=== PATIENT | male | born 1935 | race Caucasian/White ===

== ENCOUNTER 2022-12-14 21:26 | Inpatient (IN) | payer MEDICARE, SELFPAY ==
[2022-12-14] VITALS (10 sets, daily range): BP systolic 111–146; BP diastolic 63–75; PULSE 96–116; RESP 12–50; TEMP 36.4–36.5; O2SAT 83–99; BMI 30.1
--- NOTE | 2022-12-14 21:39 | EKG12_ITS ---
Test Reason : CP Blood Pressure : / mmHG Vent. Rate : 123 BPM Atrial Rate : 120 BPM P-R Int : 000 ms QRS Dur : 096 ms QT Int : 298 ms P-R-T Axes : 000 013 116 degrees QTc Int : 426 ms Atrial fibrillation Septal infarct , age undetermined Abnormal ECG Confirmed by YURI CRUM, ANAND ([id number]), medical transcription editor MIHIR CEDENO ([id number]) on 12/16/2022 9:29:51 AM Referred By: LAURA Confirmed By:ANAND WELCH MD
--- NOTE | 2022-12-14 21:41 | EDS_ITS ---
HPI History of Present Illness Chief Complaint: Chest Pain Detail of Chief Complaint: Shortness of breath Informant: patient Narrative Narrative: Patient presents to the emergency department with complaint of shortness of breath that started becoming severe this morning. Patient states that he has been short of breath for some time. He denies cough or fever. He denies chest pain. Denies palpitations or racing heart. Patient has history of hypertension and high cholesterol. He denies recent travel or surgery. PFSH PFS Home Medications amlodipine 5 mg tablet 5 mg PO DAILY 12/14/22 [History Last Taken Unknown] furosemide 20 mg tablet (Lasix) 20 mg PO SUTUTHSA 12/14/22 [History Last Taken Unknown] furosemide 40 mg tablet (Lasix) 40 mg PO MOWEFR 12/14/22 [History Last Taken Unknown] lisinopril 10 mg tablet 10 mg PO DAILY 12/14/22 [History Last Taken Unknown] pravastatin 20 mg tablet 20 mg PO QHS 12/14/22 [History Last Taken Unknown] Social History Smoking Status: Never smoker ROS ROS ED Review of Systems ROS Unobtainable: other Constitutional Constitutional ED: Reports lethargy; Denies chills, fever(s), sweats or weight loss Eyes Eyes: Denies blurry vision, change in vision or diplopia ENT ENT ED: Denies rhinorrhea or sore throat Cardiovascular Cardiovascular: Denies chest pain, orthopnea or racing heartbeat Respiratory/Chest Respiratory/Chest: Reports dyspnea and dyspnea on exertion; Denies cough, orthopnea or sputum Gastrointestinal Gastrointestinal: Denies abdominal pain, diarrhea, nausea or vomiting Genitourinary Genitourinary ED: Denies dysuria, hematuria or urinary frequency Musculoskeletal Musculoskeletal: Denies arthralgias, back pain, myalgias or neck pain Integumentary Denies abscess, Abrasions or rash Neurologic Neurologic: Denies headache(s) or weakness Psychiatric Psychiatric: Denies anxiety, depression or suicidal thoughts Endocrine Endocrinology: Denies polydipsia, polyphagia or polyuria Hematologic/Lymphatic Hematologic/Lymphatic: Denies easy bleeding, easy bruising or lymphadenopathy Allergic/Immunologic Allergic/Immunologic ED: Denies mouth swelling, tongue swelling or urticaria EXAM Physical Exam Const Vital Signs: 12/14/22 21:29 12/14/22 21:41 12/14/22 21:34 Temperature 97.6 F L 97.6 F L Temperature Source Temporal Temporal Pulse Rate 116 H 113 H Respiratory Rate 46 H 40 H Respiratory Effort Short of Breath Labored Accessory Muscle Use Respiratory Pattern Hyperpnea Blood Pressure 146/75 H 146/75 H Blood Pressure Mean 98 98 Pulse Ox 83 91 Oxygen Delivery Method Nasal Cannula Bi-pap Oxygen Flow Rate (L/min) 6 Fraction of Inspired Oxygen (FIO2) 12/14/22 21:48 12/14/22 21:41 12/14/22 21:34 Temperature Temperature Source Pulse Rate 112 H 114 H 113 H Respiratory Rate 46 H 50 H Respiratory Effort Respiratory Pattern Tachypnea Blood Pressure 141/71 H 146/75 H Blood Pressure Mean 98 Pulse Ox 91 Oxygen Delivery Method Bi-pap Oxygen Flow Rate (L/min) Fraction of Inspired Oxygen (FIO2) 60 12/14/22 21:45 12/14/22 22:15 Temperature Temperature Source Pulse Rate 114 H 96 Respiratory Rate 41 H 43 H Respiratory Effort Respiratory Pattern Blood Pressure 141/71 H 111/63 Blood Pressure Mean 94 79 Pulse Ox 91 96 Oxygen Delivery Method Bi-pap Bi-pap Oxygen Flow Rate (L/min) Fraction of Inspired Oxygen (FIO2) Positive well nourished and well developed General Appearance ED: well developed and NAD HEENT Reports TM's clear and moist mucous membranes normocephalic and atraumatic; Negative for trauma or tenderness Tympanic Membrane ED: Yes TM's clear Eyes PERRL and EOMs intact bilaterally General Eye ED: Negative for pale conjunctiva or scleral icterus Neck no lymphadenopathy, supple and no JVD General: Negative for tenderness Chest Wall inspection of chest normal and palpation of chest normal Chest: Negative for tenderness Resp No normal respiratory effort and No clear to auscultation bilaterally Resp Narrative: Patient with tachypnea and conversational dyspnea. Mild accessory muscle use. Effort and Inspection: respiratory distress; Negative for pain with movement Auscultation: rales and rhonchi; Negative for wheezes or diminished lung sounds Cardio S1 normal heart sound, S2 normal heart sound and no murmurs; Negative for regular rate or regular rhythm Rhythm: abnormal rhythm irregularly irregular Peripheral Pulses: pulses 2+ throughout GI normal to inspection, nondistended, normoactive bowel sounds, soft to palpation, non-tender, non-distended and no masses Back/Spine no CVA tenderness and no thoracic nor lumbar tenderness Extremity normal to inspection Extremity Narrative: +1 edema both lower extremities General Extremety ED: Yes edema General Extremity: edema Neuro oriented x3, CN's II-XII intact bilaterally, no sensory deficits noted and gait normal Sensorium / Orientation: awake, alert, oriented to person, oriented to place and oriented to time Motor Exam: strength 5/5 throughout and strength abnormal Psych mental status grossly normal Skin no rashes or lesions noted and no wounds MDM MDM MDM Narrative Medical decision making narrative: Patient presents in respiratory distress clinically consistent with pulmonary edema. Patient also noted to be in A-fib RVR on arrival. Patient placed on a quality assurance monitor chassis. EKG obtained showed atrial fibrillation with a rapid ventricular response with a rate of [address] changes. CBC with differential showed an elevated white count of 30,000 with hemoglobin of 12 and platelet count of 320. Troponin elevated at 12,229. BNP elevated at 2263. Chest x-ray obtained interpreted by myself as pulmonary edema. Patient initially started on BiPAP and given Lasix 80 mg IV as well as morphine 4 mg IV and an inch of Nitropaste to the anterior chest wall. Patient was given Cardizem 20 mg IV bolus. On repeat evaluation he is now converted into a sinus rhythm. I discussed case with bottle capping machine operator on-call Dr. Mark Ramirez who recommended heparin drip. Case will be discussed with hospitalist to evaluate patient for admission. Lab Data Labs: Laboratory Results - last 24 hr 12/14/22 21:30 WBC 30.4 H* RBC 3.89 L Hgb 12.1 L Hct 37.2 L MCV 95.6 H MCH 31.1 MCHC 32.5 RDW Std Deviation 50.7 H RDW Coeff of Marlon 14.6 Plt Count 320 MPV 9.9 Immature Gran % (Auto) 4.500 H Neut % (Auto) 88.2 H Lymph % (Auto) 3.4 L [place] % (Auto) 3.8 Eos % (Auto) 0.0 Baso % (Auto) 0.1 Absolute Neuts (auto) 26.8 H Absolute Lymphs (auto) 1.03 Nucleated RBC % 0 Differential Comment SEE COMMENTS Diff Path Review May foll Platelet Estimate ADEQUATE RBC Morphology N CHROM Anisocytosis 1+ Macrocytosis 1+ PT 15.5 H INR 1.2 APTT 35.5 Sodium 134 L Potassium 4.2 Chloride 102 Carbon Dioxide 18.0 L Anion Gap 14 BUN 32 H Creatinine 2.08 H Est GFR (MDRD) Af Amer 39 L Est GFR (MDRD) Non-Af 32 L BUN/Creatinine Ratio 15.4 Glucose 256 H Calcium 9.1 Troponin I High Sens 61282 H* B-Natriuretic Peptide 2263.7 H Radiography Diagnostic Testing: Clinical Impression(s) from Imaging Studies Chest X-Ray 12/14/22 22:00 IMPRESSION: 1. Interstitial and airspace disease in the mid and lower lungs. Findings may be due to edema or pneumonia. 2. Cardiac borders are obscured. 3. Costophrenic angles are obscured. There may be pleural effusions. Electronically Signed: Yuniel Rowe MD at 22:16 EDT , EKG Initial EKG: Attestation: I personally reviewed and interpreted this EKG as follows: Comments: Atrial fibrillation with a rate of 123 bpm with old septal infarct and nonspecific ST changes. Repeat EKG obtained after Cardizem shows sinus rhythm with a rate of 97 bpm with no acute ST segment changes Critical Care Time Critical care time (excluding procedures): 30-74 minutes, Including time spent:, Discussing w/Patient &/or Family/French Tutor, Discussing w/Consultants, Arranging Admission or Transfer, Performing Direct Patient Care at Bedside and - (30 minutes) Discharge Plan Triage Chief Complaint: Chest Pain ED Provider: Danielle Holbrook Dx/Rx/DC Orders Clinical Impression: Pulmonary edema, Respiratory failure, Elevated troponin, Atrial fibrillation with RVR Prescriptions: No Action amlodipine 5 mg tablet 5 mg PO DAILY lisinopril 10 mg tablet 10 mg PO DAILY pravastatin 20 mg tablet 20 mg PO QHS furosemide [Lasix] 20 mg tablet 20 mg PO SUTUTHSA furosemide [Lasix] 40 mg tablet 40 mg PO MOWEFR Primary Care Provider: George Silver Referrals: George Silver DO [Primary Care Provider] -
[2022-12-14] MEDS: Furosemide 100 MG/10 ML Vial 80 MG IV (21:46)
[2022-12-14] MEDS: Morphine 4 MG/ML Syringe IV (21:46)
[2022-12-14] MEDS: dilTIAZem 25 MG/5 ML Vial 20 MG IV BOLUS (21:47)
[2022-12-14 21:48] LABS: Absolute Lymphocyte Count 1.03 X10^3/uL (0.83-4.51); Absolute Neutrophil Count 26.8 X10^3/uL (2.0-7.7); Basophil# 0.04 X10^3/uL; Basophil% 0.1 % (0-1); Hematocrit 37.2 % (40-54); Hemoglobin 12.1 g/dL (13.0-16.5); Lymphocyte # 1.03 X10^3/ul (0.83-4.51); Lymphocyte % 3.4 % (19-41); Mean Corp Hgb Conc 32.5 g/dL (32-36); Mean Corpuscular Hgb 31.1 pg (27.0-32.0); Mean Corpuscular Volume 95.6 fL (80-94); Mean Platelet Vol. 9.9 fl (6.2-12.0); Monocyte# 1.15 X10^3/uL; Monocyte% 3.8 % (0-10); NRBC Flagged by Analyzer 0 % (0-5); Neutrophil # 26.76 X10^3/uL (2.7-7.7); Neutrophil % 88.2 % (47-70); POSITIVE COUNT YES; POSITIVE DIFFERENTIAL YES; Platelet Count 320 K/mm3 (150-450); RBC Distribution Width CV 14.6 % (11.6-14.6); RBC Distribution Width SD 50.7 fl (35.1-43.9); Red Blood Count 3.89 M/mm3 (4.6-6.2)
[2022-12-14] MEDS: Nitroglycerin Oint 1 INCH PACKET TD (21:48)
[2022-12-14 21:54] LABS: Differential Indicated SCAN CRITERIA MET; White Blood Count 30.4 K/mm3 (4.4-11.0)
--- NOTE | 2022-12-14 22:00 | RAD_ITS ---
EXAM: XR CHEST, 1 VIEW CLINICAL INDICATION: dyspnea TECHNIQUE: Frontal view of the chest. COMPARISON: No relevant prior studies available. FINDINGS: LUNGS AND PLEURAL SPACES: Interstitial and airspace disease in the mid and lower lungs. Costophrenic angles are obscured. No pneumothorax. No effusion. HEART: Cardiac borders are obscured. MEDIASTINUM: Central airways and mediastinal contour are unremarkable. BONES/JOINTS: Unremarkable. SOFT TISSUES: Unremarkable. RAD/Chest 1 View (Portable) IMPRESSION: 1. Interstitial and airspace disease in the mid and lower lungs. Findings may be due to edema or pneumonia. 2. Cardiac borders are obscured. 3. Costophrenic angles are obscured. There may be pleural effusions. Electronically Signed: Yuniel Rowe MD at 22:16 EDT ,
[2022-12-14 22:12] LABS: BNP,B-Type NATRIURETIC PEPTIDE 2263.7 pg/mL (0-100); Troponin-I HS 12229 pg/mL (3.0-78.0)
[2022-12-14 22:16] LABS: Differential Comment SEE COMMENTS; Platelet Estimate ADEQUATE (ADEQ)
[2022-12-14 22:17] LABS: Anisocytosis 1+; Macrocytosis 1+; Red Cell Morphology N CHROM NORMAL (NORM C&C)
--- NOTE | 2022-12-14 22:35 | EKG12_ITS ---
Test Reason : RHYTHM CONVERSION Blood Pressure : / mmHG Vent. Rate : 097 BPM Atrial Rate : 097 BPM P-R Int : 174 ms QRS Dur : 084 ms QT Int : 330 ms P-R-T Axes : 058 005 050 degrees QTc Int : 419 ms Normal sinus rhythm Normal ECG Confirmed by YURI CRUM, ANAND ([id number]), television news video editor MIHIR CEDENO ([id number]) on 12/16/2022 9:30:03 AM Referred By: RU Confirmed By:ANAND WELCH MD
[2022-12-14 22:54] LABS: Anion Gap 14 (5-15); BUN 32 mg/dL (7-18); BUN/Creat Ratio 15.4 RATIO (10-20); Calcium,Total 9.1 mg/dL (8.5-10.1); Chloride 102 mmol/L (98-107); Creatinine, Serum 2.08 mg/dL (0.70-1.30); EST Glomerular Filtration Rate 32 mL/min (>60); Est Glom Filt Rate - Afr Amer 39 mL/min (>60); Glucose 256 mg/dL (74-106); Potassium 4.2 mmol/L (3.5-5.1); Sodium Level 134 mmol/L (136-145)
--- NOTE | 2022-12-14 22:54 | PCM.HP.STD ---
HPI - General General Date of Admission: 12/14/22 Date of Service: 12/14/22 Chief Complaint: Shortness of breath HPI Narrative NAEEM GIBSON, is a 87 M who presents to the emergency room with acute shortness of breath. Patient has had progressive symptoms over the past few days and presented to the emergency room with tachypnea and weakness. Patient currently denies having any chest pain and since arrival to the emergency room has improved with BiPAP therapy and diuresis. Following a dose of Cardizem in the emergency room he converted from atrial fibrillation to normal sinus rhythm. Initial laboratory results remarkable for troponin greater than 12,000 and a BNTP greater than 2000. Chest x-ray is remarkable for congestive heart failure and pulmonary edema. White blood cell count is elevated at 30,000 with a left shift. Patient will be admitted to the intensive care unit overnight continue BiPAP therapy and managed for congestive heart failure. Patient was alert and oriented at and we had a discussion about CODE STATUS and patient wishes to remain full code at present time. [facility] Home Medications amlodipine 5 mg tablet 5 mg PO DAILY 12/14/22 [History Last Taken Unknown] furosemide 20 mg tablet (Lasix) 20 mg PO SUTUTHSA 12/14/22 [History Last Taken Unknown] furosemide 40 mg tablet (Lasix) 40 mg PO MOWEFR 12/14/22 [History Last Taken Unknown] lisinopril 10 mg tablet 10 mg PO DAILY 12/14/22 [History Last Taken Unknown] pravastatin 20 mg tablet 20 mg PO QHS 12/14/22 [History Last Taken Unknown] Social History Smoking Status: Never smoker ROS Constitutional Constitutional: Denies chills or fever(s) Eyes Eyes: Denies blurry vision ENT HEENT: Denies abnormal hearing Cardiovascular Cardiovascular: Reports edema and palpitations; Denies chest pain Respiratory/Chest Respiratory/Chest: Reports shortness of breath at rest Gastrointestinal Gastrointestinal: Denies abdominal pain Genitourinary Genitourinary: Denies dysuria Musculoskeletal Musculoskeletal: Denies back pain Integumentary Integumentary: Reports dry skin Neurologic Neurologic: Denies abnormal speech or confusion Psychiatric Psychiatric: Denies anxiety Hematologic/Lymphatic Hematologic/Lymphatic: Denies anemia Vital Signs Vital Signs Vital Signs: 12/14/22 21:29 12/14/22 21:41 12/14/22 21:34 Temperature 97.6 F L 97.6 F L Temperature Source Temporal Temporal Pulse Rate 116 H 113 H Respiratory Rate 46 H 40 H Respiratory Effort Short of Breath Labored Accessory Muscle Use Respiratory Pattern Hyperpnea Blood Pressure 146/75 H 146/75 H Blood Pressure Mean 98 98 Pulse Ox 83 91 Oxygen Delivery Method Nasal Cannula Bi-pap Oxygen Flow Rate (L/min) 6 Fraction of Inspired Oxygen (FIO2) 12/14/22 21:48 12/14/22 21:41 12/14/22 21:34 Temperature Temperature Source Pulse Rate 112 H 114 H 113 H Respiratory Rate 46 H 50 H Respiratory Effort Respiratory Pattern Tachypnea Blood Pressure 141/71 H 146/75 H Blood Pressure Mean 98 Pulse Ox 91 Oxygen Delivery Method Bi-pap Oxygen Flow Rate (L/min) Fraction of Inspired Oxygen (FIO2) 60 12/14/22 21:45 12/14/22 22:15 Temperature Temperature Source Pulse Rate 114 H 96 Respiratory Rate 41 H 43 H Respiratory Effort Respiratory Pattern Blood Pressure 141/71 H 111/63 Blood Pressure Mean 94 79 Pulse Ox 91 96 Oxygen Delivery Method Bi-pap Bi-pap Oxygen Flow Rate (L/min) Fraction of Inspired Oxygen (FIO2) Physical Exam Const oriented x3 General Appearance: cooperative and well developed HEENT normocephalic and head/scalp atraumatic Neck no lymphadenopathy Lymph Lymphatic: no lymphadenopathy noted Resp Effort and Inspection: tachypneic, respiratory distress and labored Cardio regular rate, regular rhythm, S1 normal heart sound and S2 normal heart sound GI normal to inspection, nondistended, normoactive bowel sounds Extremity normal capillary refill Skin Skin Narrative: Lower extremity venous stasis changes General Skin Exam: dry skin Neuro no focal motor deficits and no sensory deficits noted Psych thought process normal and cooperative Mood & Affect: Negative for depressed Results Lab / Micro Data 12/14/22 21:30 12/14/22 21:30 Labs: Laboratory Results - last 24 hr 12/14/22 21:30: WBC 30.4 H*, RBC 3.89 L, Hgb 12.1 L, Hct 37.2 L, MCV 95.6 H, MCH 31.1, MCHC 32.5, RDW Std Deviation 50.7 H, RDW Coeff of Marlon 14.6, Plt Count 320, MPV 9.9, Immature Gran % (Auto) 4.500 H, Neut % (Auto) 88.2 H, Lymph % (Auto) 3.4 L, [place] % (Auto) 3.8, Eos % (Auto) 0.0, Baso % (Auto) 0.1, Absolute Neuts (auto) 26.8 H, Absolute Lymphs (auto) 1.03, Nucleated RBC % 0, Differential Comment SEE COMMENTS, Diff Path Review May foll, Platelet Estimate ADEQUATE, RBC Morphology N CHROM, Anisocytosis 1+, Macrocytosis 1+, Sodium 134 L, Potassium 4.2, Chloride 102, Carbon Dioxide 18.0 L, Anion Gap 14, BUN 32 H, Creatinine 2.08 H, Est GFR (MDRD) Af Amer 39 L, Est GFR (MDRD) Non-Af 32 L, BUN/Creatinine Ratio 15.4, Glucose 256 H, Calcium 9.1, Troponin I High Sens 37370 H*, B-Natriuretic Peptide 2263.7 H Radiology Impression Chest X-Ray 12/14/22 22:00 IMPRESSION: 1. Interstitial and airspace disease in the mid and lower lungs. Findings may be due to edema or pneumonia. 2. Cardiac borders are obscured. 3. Costophrenic angles are obscured. There may be pleural effusions. Electronically Signed: Yuniel Rowe MD at 22:16 EDT , Assessment & Plan Assessment/Plan (1) Pulmonary edema: (2) Respiratory failure: (3) Elevated troponin: (4) Atrial fibrillation with RVR: (5) CHF (congestive heart failure): PLAN: Plan 1 respiratory failure secondary to CHF with pulmonary edema?admit patient to intensive care unit overnight, consult cardiology?IV Lasix 20 mg IV twice daily, continue BiPAP therapy overnight?patient wishes to remain full code should he not continue to respond well to his BiPAP treatment. 2. Congestive heart failure?we will order echocardiogram to assess ejection fraction 3. Atrial fibrillation with RVR?status converted in the ER with Cardizem 4. DVT prophylaxis?we will use low molecular weight heparin Charges/Coding Visit Charges Inpatient E&M: 05083 Init Hosp L2
[2022-12-14 22:58] LABS: International Normalized Ratio 1.2; Prothrombin Time (Protime)PT. 15.5 SECONDS (11.7-14.9)
[2022-12-14 22:59] LABS: Partial Thromboplast Time 35.5 Seconds (24.1-36.2)
[2022-12-14] MEDS: Heparin Injection (Vial) 5,000 UNIT/ML VIAL 6000 UNIT IV (23:31)
[2022-12-14] MEDS: HEPARIN/D5w 25,000 UNITS 25,000 UNITS/250 ML IV.SOLN. 12 UNITS CONT INF (23:31)
[2022-12-15] VITALS (32 sets, daily range): BP systolic 84–133; BP diastolic 48–95; PULSE 64–110; RESP 12–41; TEMP 36.7–37.5; O2SAT 86–98; BMI 30.1; BMI 29.2
[2022-12-15 03:19] LABS: Absolute Lymphocyte Count 0.81 X10^3/uL (0.83-4.51); Absolute Neutrophil Count 18.3 X10^3/uL (2.0-7.7); Basophil# 0.03 X10^3/uL; Basophil% 0.1 % (0-1); Hemoglobin 11.2 g/dL (13.0-16.5); Lymphocyte # 0.81 X10^3/ul (0.83-4.51); Mean Corpuscular Hgb 31.1 pg (27.0-32.0); Mean Corpuscular Volume 97.2 fL (80-94); Mean Platelet Vol. 9.7 fl (6.2-12.0); Monocyte% 4.5 % (0-10); NRBC Flagged by Analyzer 0 % (0-5); Neutrophil # 18.28 X10^3/uL (2.7-7.7); Neutrophil % 90.7 % (47-70); Platelet Count 228 K/mm3 (150-450); RBC Distribution Width CV 14.5 % (11.6-14.6); RBC Distribution Width SD 51.8 fl (35.1-43.9); White Blood Count 20.2 K/mm3 (4.4-11.0)
[2022-12-15 03:30] LABS: Anion Gap 7 (5-15); BUN 37 mg/dL (7-18); BUN/Creat Ratio 20.1 RATIO (10-20); Calcium,Total 8.6 mg/dL (8.5-10.1); Chloride 104 mmol/L (98-107); Creatinine, Serum 1.84 mg/dL (0.70-1.30); EST Glomerular Filtration Rate 37 mL/min (>60); Est Glom Filt Rate - Afr Amer 45 mL/min (>60); Estimated Creatinine Clearance 26.85 ml/min; Glucose 165 mg/dL (74-106); Magnesium 2.4 mg/dL (1.6-2.6); Potassium 4.3 mmol/L (3.5-5.1); Sodium Level 135 mmol/L (136-145)
[2022-12-15 04:07] LABS: Partial Thromboplast Time 66.5 Seconds (24.1-36.2)
--- NOTE | 2022-12-15 05:55 | ECHOCS_ITS ---
Reason For Study: A-FIB Procedure This was a 2D Doppler, Color Flow transthoracic echocardiogram. Exam performed portable in ICU/CCU. Left Ventricle Normal LV size. Mild to moderate global left ventricular systolic dysfunction. The estimated ejection fraction is 45 %. Stage 3 diastolic dysfunction. No regional wall motion abnormalities noted. Right Ventricle Normal RV size. Normal systolic function. Atria The left atrium is mildly enlarged. The right atrium is mildly enlarged. Mitral Valve Normal mitral valve. Mild (1+) eccentric mitral valve insufficiency. Tricuspid Valve Normal tricuspid valve. Mild to moderate (1-2+) tricuspid valve insufficiency. Pulmonary artery systolic pressure is 32 mmHg. Aortic Valve Mild (1+) aortic valve insufficiency. Great Vessels Calcified aortic root. The pulmonary artery is normal size. Normal inferior vena cava. Pericardium/Pleural No pericardial effusion. MMode/2D Measurements & Calculations LVIDd: 4.8 cm IVSd: 1.1 cm LVOT diam: 2.1 cm LVIDs: 3.8 cm LVPWd: 1.3 cm LVOT area: 3.6 cm2 FS: 22.0 % Ao root diam: 2.2 cm LAV(MOD-bp): 63.8 ml LVAd ap4: 29.4 cm2 LAV(MOD-bp) Indexed: 31.7 ml/m2 LVLd ap4: 7.3 cm LAV(MOD-sp2): 66.9 ml EDV(MOD-sp4): 97.8 ml LAV(MOD-sp4): 51.6 ml EDV(sp4-el): 100.9 ml LVAs ap4: 23.2 cm2 LVLs ap4: 7.4 cm ESV(MOD-sp4): 62.0 ml ESV(sp4-el): 61.5 ml EF(MOD-sp4): 36.6 % EF(sp4-el): 39.0 % SV(MOD-sp4): 35.8 ml SV(MOD-sp2): 34.2 ml LVAd ap2: 29.4 cm2 LVLd ap2: 7.3 cm EDV(MOD-sp2): 97.5 ml EDV(sp2-el): 101.0 ml LVAs ap2: 23.9 cm2 LVLs ap2: 7.6 cm ESV(MOD-sp2): 63.3 ml ESV(sp2-el): 64.0 ml EF(MOD-sp2): 35.1 % SV(sp4-el): 39.4 ml LA A4 area: 21.2 cm2 LA dimension(2D): 3.9 cm TAPSE: 1.7 cm RA A4 area: 21.2 cm2 Time Measurements MV dec time: 0.22 sec Doppler Measurements & Calculations MV E max yeison: 80.3 cm/sec Lat Peak E' Yeison: 10.5 cm/sec Med Peak E' Yeison: 8.0 cm/sec MV A max yeison: 35.2 cm/sec E/E' lat: 7.6 E/E' med: 10.0 MV E/A: 2.3 MV V2 max: 81.2 cm/sec MV P1/2t max yeison: 80.3 cm/sec Ao V2 max: 237.7 cm/sec MV max P.6 mmHg MV P1/2t: 55.2 msec Ao max P.6 mmHg MV V2 mean: 38.2 cm/sec MV dec slope: 425.9 cm/sec2 Ao V2 mean: 183.4 cm/sec MV mean P.72 mmHg Ao mean P.7 mmHg MV V2 VTI: 15.8 cm MVA(P1/2t): 4.0 cm2 Ao V2 VTI: 38.2 cm MVA(VTI): 3.4 cm2 AV (velocity ratio): 0.39 IGGY(I,D): 1.4 cm2 IGGY(V,D): 1.2 cm2 LV V1 max: 81.0 cm/sec SV(LVOT): 53.1 ml PA V2 max: 85.7 cm/sec LV V1 max P.6 mmHg LV V1 mean P.5 mmHg LV V1 mean: 58.2 cm/sec LV V1 VTI: 14.8 cm TR max yeison: 264.9 cm/sec TR max P.6 mmHg ECHO/Echo Complete W/ Contrast Interpretation Summary Normal LV size. Mild to moderate global left ventricular systolic dysfunction. The estimated ejection fraction is 45 %. Stage 3 diastolic dysfunction. Pulmonary artery systolic pressure is 32 mmHg. Contrast injection was performed. Ordering Physician: Chandra Tan Performed By: Tanika Kumar RVT, RDCS and Student
--- NOTE | 2022-12-15 07:18 | PCM.PN.HOSP ---
Reason for Visit Reason for Visit: Diagnoses Unspecified atrial fibrillation (12/14/22) Heart failure, unspecified (12/14/22) Chronic pulmonary edema (12/14/22) Respiratory failure, unspecified, unspecified whether with hypoxia or hypercapnia (12/14/22) Other specified abnormalities of plasma proteins (12/14/22) Subjective Subjective Patient is an 87-year-old gentleman admitted with shortness of breath and chest discomfort. Imaging studies obtained on admission demonstrated interstitial and airspace disease in the mid and lower lungs. An assessment of acute hypoxic respiratory failure made patient admitted to the intensive care unit for further management Objective Data Objective Data Vital Signs: Vital Signs Temp Pulse Resp BP Pulse Ox O2 Del Method O2 Flow Rate 98.0 F 92 28 H 111/61 97 Bi-pap 40 12/15/22 04:00 12/15/22 07:00 12/15/22 07:00 12/15/22 07:00 12/15/22 07:00 12/15/22 07:00 12/14/22 22:48 FiO2 50 12/15/22 07:00 Oxygen Flow Rate (L/min) 40 Oxygen Delivery Method Bi-pap Weight: 87.4 kg Body Mass Index (BMI) 29.2 Intake & Output: Intake and Output for Last 24 Hours 12/13/22 12/14/22 12/15/22 23:59 23:59 23:59 Intake Total 50 / 50 Output Total 100 / 100 Balance -50 / -50 Lab / Micro Data 12/15/22 03:10 12/15/22 03:10 Labs: Laboratory Results - last 24 hr 12/14/22 21:30: WBC 30.4 H*, RBC 3.89 L, Hgb 12.1 L, Hct 37.2 L, MCV 95.6 H, MCH 31.1, MCHC 32.5, RDW Std Deviation 50.7 H, RDW Coeff of Marlon 14.6, Plt Count 320, MPV 9.9, Immature Gran % (Auto) 4.500 H, Neut % (Auto) 88.2 H, Lymph % (Auto) 3.4 L, [place] % (Auto) 3.8, Eos % (Auto) 0.0, Baso % (Auto) 0.1, Absolute Neuts (auto) 26.8 H, Absolute Lymphs (auto) 1.03, Nucleated RBC % 0, Differential Comment SEE COMMENTS, Diff Path Review May foll, Platelet Estimate ADEQUATE, RBC Morphology N CHROM, Anisocytosis 1+, Macrocytosis 1+, PT 15.5 H, INR 1.2, APTT 35.5, Sodium 134 L, Potassium 4.2, Chloride 102, Carbon Dioxide 18.0 L, Anion Gap 14, BUN 32 H, Creatinine 2.08 H, Est GFR (MDRD) Af Amer 39 L, Est GFR (MDRD) Non-Af 32 L, BUN/Creatinine Ratio 15.4, Glucose 256 H, Calcium 9.1, Troponin I High Sens 26540 H*, B-Natriuretic Peptide 2263.7 H 12/15/22 03:10: WBC 20.2 H, RBC 3.60 L, Hgb 11.2 L, Hct 35.0 L, MCV 97.2 H, MCH 31.1, MCHC 32.0, RDW Std Deviation 51.8 H, RDW Coeff of Marlon 14.5, Plt Count 228, MPV 9.7, Immature Gran % (Auto) 0.700, Neut % (Auto) 90.7 H, Lymph % (Auto) 4.0 L, [place] % (Auto) 4.5, Eos % (Auto) 0.0, Baso % (Auto) 0.1, Absolute Neuts (auto) 18.3 H, Absolute Lymphs (auto) 0.81 L, Nucleated RBC % 0, APTT Cancelled, Sodium 135 L, Potassium 4.3, Chloride 104, Carbon Dioxide 24.0, Anion Gap 7, BUN 37 H, Creatinine 1.84 H, Estim Creat Clear Calc 26.85, Est GFR (MDRD) Af Amer 45 L, Est GFR (MDRD) Non-Af 37 L, BUN/Creatinine Ratio 20.1 H, Glucose 165 H, Calcium 8.6, Magnesium 2.4 12/15/22 03:45: APTT 66.5 H Radiography Diagnostic Testing: Radiology Impression Chest X-Ray 12/14/22 22:00 IMPRESSION: 1. Interstitial and airspace disease in the mid and lower lungs. Findings may be due to edema or pneumonia. 2. Cardiac borders are obscured. 3. Costophrenic angles are obscured. There may be pleural effusions. Electronically Signed: Yuniel Rowe MD at 22:16 EDT , Physical Exam Narrative GENERAL: cooperative HEENT: Atraumatic; normocephalic EYES; Anicteric, Normal Conjunctiva NECK; supple, normal thyroid, RESPIRATORY: Diminished to auscultation CARDIOVASCULAR: Irregularly irregular, tachycardic GI: soft, normoactive bowel sounds, : No Renal angle tenderness; EXTREMITIES: edema, no clubbing, MUSCULOSKELETAL: no muscle wasting NEURO: Awake; no lateralizing signs. SKIN: No Rash PSYCH; Flat affect Assessment & Plan Assessment/Plan (1) Respiratory failure: (2) Atrial fibrillation with RVR: (3) CHF (congestive heart failure): PLAN: Plan Patient is an 87-year-old gentleman admitted with shortness of breath and chest discomfort. Imaging studies obtained on admission demonstrated interstitial and airspace disease in the mid and lower lungs. An assessment of acute hypoxic respiratory failure made patient admitted to the intensive care unit for further management 1. Acute hypoxic respiratory failure ? Secondary to acute congestive heart failure. Patient admitted to the intensive care unit placed on noninvasive ventilation BiPAP. Patient was also managed with fluid restriction, strict input and output, daily weights as well as IV diuretics. 2D echo ordered for EF assessment 2. Elevated troponin ? Suspected to be secondary to demand ischemia from CHF as well as patient underlying A-fib with RVR trending troponins 3. New onset A-fib with RVR ? Patient apparently converted in the ED was on Cardizem. Had a recurrence in the ICU. Plan is to initiate Cardizem drip titrated to keep heart rate less than 100. Patient is on systemic anticoagulation with 4. Hypertension - Blood pressure controlled, home medications continued with dose adjustment as needed 5. Dyslipidemia -Patient is on statin therapy, continued at home dose 6. DVT prophylaxis - On heparin Time spent in the patient's overall evaluation,decision-making process, review of diagnostic data, adjustment of management, discussion with other providers, nursing nursing and ancillary staff involved in patient's care documentation, 52 Minutes Charges/Coding Visit Charges Inpatient E&M: 39476 Subs [place] [id number]
[2022-12-15] MEDS: dilTIAZem 25 MG/5 ML Vial 10 MG IV BOLUS (08:48)
--- NOTE | 2022-12-15 09:23 | WOUNDNOTE ---
Was asked to see patient for dry, flaky skin to bilateral lower legs. patient has some hemosiderin staining noted bilaterally with some thick, dry skin. some mild edema noted. washed legs and feet with soap and water. was able to remove a moderate amount of the dry skin. applied vaseline to moisturize and wrapped with kerlix. applied ARACELI wraps from the base of the toes to just below the knees. pt tolerated well. no open wounds noted. no drainage noted. will monitor.
[2022-12-15] MEDS: Furosemide 40 MG/4 ML Vial IV ×2 (10:23→17:28)
[2022-12-15] MEDS: 0.9% Saline Lock 10 ML Syringe IV ×2 (10:24→17:28)
[2022-12-15] MEDS: Metoprolol Tartrate 50 MG Tablet PO (10:29)
[2022-12-15 11:41] LABS: Partial Thromboplast Time 69.5 Seconds (24.1-36.2)
[2022-12-15] MEDS: HEPARIN/D5w 25,000 UNITS 25,000 UNITS/250 ML IV.SOLN. 12 UNITS CONT INF (11:50)
--- NOTE | 2022-12-15 13:40 | CASEMGMT ---
ADOLPH WEI Assessment: Face to Face with pt for initial transition planning/care coordination assessment. ADOLPH WEI introduced self and role at [facility], pt voices understanding and consents to assessment. Pt is A/O x4 and answers all questions appropriately at this time. Pt sitting up in chair with dtr Delmy at bedside. Pt agreeable to assessment with dtr present. Care providers, pharmacy, and demographics verified/updated. Admitting Dx: respiratory failure- congestive heart failure PCP:Adrianne Specialists:brissa Ramirez Pharmacy: [facility] Insurance: Medicare A Prescription Benefit: no LNOK: Delmy Escalera, dtr Living Arrangements: Pt lives alone, passed last year. Pt two dtrs live close with just a sidewalk in between. Pt lives in a two story home, he uses only the main level with 2 steps to enter. Pt reports he is I in ADL's. Dtr provide meals. Pt denies concerns at home. Transportation: Pt hires drivers for transportation. DME/HHC/SNF: Pt has a cane that he uses, also has a walker and transport w/c available. Pt denies hx of HHC or SNF stays. Pt states no concerns with going home at time of dc. Pt may be interested in HHC at home, he would like to see how his stay progresses and discuss with dtr. Pt reviewing afib booklet currently. Pt reports he does have electricity at home should he need to be dc'd on oxygen. Pt states no further concerns/needs. CM to follow. Advised pt to ask CM if any further question/concerns/needs arise, voices understanding. Pt Goal: Home Plan: Home vs Home with HHC, follow therapy, oxgyen.
--- NOTE | 2022-12-15 17:14 | PCM.CONS.C ---
Assessment & Plan Assessment/Plan (1) CHF (congestive heart failure): PLAN: He does have evidence of congestive heart failure which appears to be mildly systolic. His estimated ejection fraction is mildly reduced estimated at 45% which appears to be global. He does have some renal dysfunction. My recommendation will be to attempt to control his rate with a beta-hoang and diuresis and cautiously. (2) Atrial fibrillation with RVR: PLAN: He does have evidence of paroxysmal atrial fibrillation. He he is going in and out of atrial fibrillation. At this time he appears to doing better on the beta-hoang with the Lopressor. I will recommend that we increase it to 50 mg twice a day and consider anticoagulation. He does have some renal dysfunction and we may need to adjust the dosages for this. He does have mild troponin elevation but I do not think that we should pursue an invasive approach at this time. Thank you for allowing me to participate in the care of your patient. Please don't hesitate to call if any issues arise. HPI Consult Data Date of Consult: 12/15/22 HPI Narrative HPI Narrative: NAEEM GIBSON, is a 87 M who presents to the emergency room complaining of shortness of breath which apparently started a few days ago. He denies any chest pain or paroxysmal nocturnal dyspnea or pedal edema he has had no neck arm or jaw discomfort suggest angina. He has been compliant with his medications. In the emergency room he was noted to be in atrial fibrillation with a rapid ventricular response rate he was given intravenous diltiazem and he transiently converted to sinus rhythm. He was also put on oxygen and diuresed. Cardiology was asked to see him for further evaluation and management. [facility] Medical History HTN (hypertension) Hypercholesteremia Home Medications amlodipine 5 mg tablet 5 mg PO DAILY 12/14/22 [History Last Taken Unknown] furosemide 20 mg tablet (Lasix) 20 mg PO SUTUTHSA 12/14/22 [History Last Taken Unknown] furosemide 40 mg tablet (Lasix) 40 mg PO MOWEFR 12/14/22 [History Last Taken Unknown] lisinopril 10 mg tablet 10 mg PO DAILY 12/14/22 [History Last Taken Unknown] pravastatin 20 mg tablet 20 mg PO QHS 12/14/22 [History Last Taken Unknown] Allergy/AdvReac Type Severity Reaction Status Date / Time No Known Drug Allergies Allergy Mild none Verified 12/14/22 23:24 Surgical History History of appendectomy Social History Smoking Status: Never smoker Risk Stratification Risk Stratification Applicable: No Objective Data Vital Signs: Vital Signs Temp Pulse Resp BP Pulse Ox O2 Del Method O2 Flow Rate 99.5 F H 89 41 H 118/65 91 Nasal Cannula 6 12/15/22 11:41 12/15/22 17:00 12/15/22 17:00 12/15/22 17:00 12/15/22 17:00 12/15/22 17:00 12/15/22 17:00 FiO2 50 12/15/22 07:00 Oxygen Flow Rate (L/min) 6 Oxygen Delivery Method Nasal Cannula Weight: 192 lb 10.944 oz Body Mass Index (BMI) 29.2 Intake & Output: Intake and Output for Last 24 Hours 12/13/22 12/14/22 12/15/22 23:59 23:59 23:59 Intake Total 787.8 / 787.8 Output Total 625 / 625 Balance 162.8 / 162.8 Lab / Micro Data 12/15/22 03:10 12/15/22 03:10 Labs: Laboratory Results - last 24 hr 12/14/22 21:30: WBC 30.4 H*, RBC 3.89 L, Hgb 12.1 L, Hct 37.2 L, MCV 95.6 H, MCH 31.1, MCHC 32.5, RDW Std Deviation 50.7 H, RDW Coeff of Marlon 14.6, Plt Count 320, MPV 9.9, Immature Gran % (Auto) 4.500 H, Neut % (Auto) 88.2 H, Lymph % (Auto) 3.4 L, [place] % (Auto) 3.8, Eos % (Auto) 0.0, Baso % (Auto) 0.1, Absolute Neuts (auto) 26.8 H, Absolute Lymphs (auto) 1.03, Nucleated RBC % 0, Differential Comment SEE COMMENTS, Diff Path Review May foll, Platelet Estimate ADEQUATE, RBC Morphology N CHROM, Anisocytosis 1+, Macrocytosis 1+, PT 15.5 H, INR 1.2, APTT 35.5, Sodium 134 L, Potassium 4.2, Chloride 102, Carbon Dioxide 18.0 L, Anion Gap 14, BUN 32 H, Creatinine 2.08 H, Est GFR (MDRD) Af Amer 39 L, Est GFR (MDRD) Non-Af 32 L, BUN/Creatinine Ratio 15.4, Glucose 256 H, Calcium 9.1, Troponin I High Sens 92816 H*, B-Natriuretic Peptide 2263.7 H 12/15/22 03:10: WBC 20.2 H, RBC 3.60 L, Hgb 11.2 L, Hct 35.0 L, MCV 97.2 H, MCH 31.1, MCHC 32.0, RDW Std Deviation 51.8 H, RDW Coeff of Marlon 14.5, Plt Count 228, MPV 9.7, Immature Gran % (Auto) 0.700, Neut % (Auto) 90.7 H, Lymph % (Auto) 4.0 L, [place] % (Auto) 4.5, Eos % (Auto) 0.0, Baso % (Auto) 0.1, Absolute Neuts (auto) 18.3 H, Absolute Lymphs (auto) 0.81 L, Nucleated RBC % 0, APTT Cancelled, Sodium 135 L, Potassium 4.3, Chloride 104, Carbon Dioxide 24.0, Anion Gap 7, BUN 37 H, Creatinine 1.84 H, Estim Creat Clear Calc 26.85, Est GFR (MDRD) Af Amer 45 L, Est GFR (MDRD) Non-Af 37 L, BUN/Creatinine Ratio 20.1 H, Glucose 165 H, Calcium 8.6, Magnesium 2.4 12/15/22 03:45: APTT 66.5 H 12/15/22 10:30: APTT Cancelled 12/15/22 11:14: APTT 69.5 H Cardiology Labs/Tests 12/14/22 21:30: WBC 30.4 H*, RBC 3.89 L, Hgb 12.1 L, Hct 37.2 L, MCV 95.6 H, MCH 31.1, MCHC 32.5, Plt Count 320, MPV 9.9, Immature Gran % (Auto) 4.500 H, Neut % (Auto) 88.2 H, Lymph % (Auto) 3.4 L, [place] % (Auto) 3.8, Eos % (Auto) 0.0, Baso % (Auto) 0.1, Absolute Neuts (auto) 26.8 H, Nucleated RBC % 0, PT 15.5 H, INR 1.2, APTT 35.5, Sodium 134 L, Potassium 4.2, Chloride 102, Carbon Dioxide 18.0 L, Anion Gap 14, BUN 32 H, Creatinine 2.08 H, Est GFR (MDRD) Af Amer 39 L, Est GFR (MDRD) Non-Af 32 L, BUN/Creatinine Ratio 15.4, Glucose 256 H, Calcium 9.1, B-Natriuretic Peptide 2263.7 H 12/15/22 03:10: WBC 20.2 H, RBC 3.60 L, Hgb 11.2 L, Hct 35.0 L, MCV 97.2 H, MCH 31.1, MCHC 32.0, Plt Count 228, MPV 9.7, Immature Gran % (Auto) 0.700, Neut % (Auto) 90.7 H, Lymph % (Auto) 4.0 L, [place] % (Auto) 4.5, Eos % (Auto) 0.0, Baso % (Auto) 0.1, Absolute Neuts (auto) 18.3 H, Nucleated RBC % 0, APTT Cancelled, Sodium 135 L, Potassium 4.3, Chloride 104, Carbon Dioxide 24.0, Anion Gap 7, BUN 37 H, Creatinine 1.84 H, Est GFR (MDRD) Af Amer 45 L, Est GFR (MDRD) Non-Af 37 L, BUN/Creatinine Ratio 20.1 H, Glucose 165 H, Calcium 8.6, Magnesium 2.4 12/15/22 03:45: APTT 66.5 H 12/15/22 10:30: APTT Cancelled 12/15/22 11:14: APTT 69.5 H Rhythm: EKG: ECHO: Stress Test: Cardiac Cath: PCI: CT Surgery: Holter monitor: EPS: PPM: CXR: Chest CT Scan: Radiography Diagnostic Testing: Radiology Impression Chest X-Ray 12/14/22 22:00 IMPRESSION: 1. Interstitial and airspace disease in the mid and lower lungs. Findings may be due to edema or pneumonia. 2. Cardiac borders are obscured. 3. Costophrenic angles are obscured. There may be pleural effusions. Electronically Signed: Yuniel Rowe MD at 22:16 EDT , Echocardiogram 12/15/22 05:55 Interpretation Summary Normal LV size. Mild to moderate global left ventricular systolic dysfunction. The estimated ejection fraction is 45 %. Stage 3 diastolic dysfunction. Pulmonary artery systolic pressure is 32 mmHg. Contrast injection was performed. Ordering Physician: Chandra Tan Performed By: Tanika Kumar RVT, RDCS and Student
[2022-12-15 17:26] LABS: Partial Thromboplast Time 87.5 Seconds (24.1-36.2)
[2022-12-15] MEDS: Acetaminophen 325 MG Tablet 650 MG PO (18:26)
[2022-12-15] MEDS: HEPARIN/D5w 25,000 UNITS 25,000 UNITS/250 ML IV.SOLN. 11 UNITS CONT INF (19:41)
[2022-12-15] MEDS: MELATONIN 10 MG TABLET PO (21:12)
[2022-12-15] MEDS: Pravastatin 20 MG Tablet PO (21:12)
[2022-12-15 23:27] LABS: Partial Thromboplast Time 109.3 Seconds (24.1-36.2)
[2022-12-16] VITALS (21 sets, daily range): BP systolic 74–100; BP diastolic 44–64; PULSE 60–83; RESP 18–26; TEMP 36.3–37; O2SAT 94–98; BMI 29.7
--- NOTE | 2022-12-16 07:14 | PCM.PN.CARD ---
Subjective Subjective The patient was seen and evaluated. Appears to be doing quite well. Objective Data Vital Signs: Vital Signs Temp Pulse Resp BP Pulse Ox O2 Del Method O2 Flow Rate 98.0 F 70 26 H 89/58 L 97 Nasal Cannula 6 12/16/22 04:00 12/16/22 07:00 12/16/22 07:00 12/16/22 07:00 12/16/22 07:00 12/16/22 07:00 12/16/22 07:00 FiO2 50 12/15/22 07:00 Oxygen Flow Rate (L/min) 6 Oxygen Delivery Method Nasal Cannula Weight: 195 lb 15.855 oz Body Mass Index (BMI) 29.7 Intake & Output: Intake and Output for Last 24 Hours 12/14/22 12/15/22 12/16/22 23:59 23:59 23:59 Intake Total 1151.93 / 1151.93 50 / 50 Output Total 775 / 775 250 / 250 Balance 376.93 / 376.93 -200 / -200 Lab / Micro Data 12/15/22 03:10 12/15/22 03:10 Labs: Laboratory Results - last 24 hr 12/15/22 10:30: APTT Cancelled 12/15/22 11:14: APTT 69.5 H 12/15/22 16:55: APTT 87.5 H 12/15/22 23:10: APTT 109.3 H* Cardiology Labs/Tests 12/15/22 10:30: APTT Cancelled 12/15/22 11:14: APTT 69.5 H 12/15/22 16:55: APTT 87.5 H 12/15/22 23:10: APTT 109.3 H* Rhythm: EKG: ECHO: Stress Test: Cardiac Cath: PCI: CT Surgery: Holter monitor: EPS: PPM: CXR: Chest CT Scan: Radiography Diagnostic Testing: Radiology Impression Echocardiogram 12/15/22 05:55 Interpretation Summary Normal LV size. Mild to moderate global left ventricular systolic dysfunction. The estimated ejection fraction is 45 %. Stage 3 diastolic dysfunction. Pulmonary artery systolic pressure is 32 mmHg. Contrast injection was performed. Ordering Physician: Chandra Tan Performed By: Tanika Kumar RVT, RDCS and Student Physical Exam Const alert, oriented x3 and no apparent distress General Appearance: cooperative HEENT hearing grossly normal bilaterally Head and Scalp: atraumatic Eyes EOMs intact bilaterally Neck General: normal visual inspection Chest inspection of chest normal and palpation of chest normal Resp normal respiratory effort Auscultation: clear to auscultation bilaterally Cardio regular rate, regular rhythm, S1 normal heart sound and S2 normal heart sound Jugular Venous Distention: JVD GI normal to inspection, nondistended, normoactive bowel sounds Extremity normal capillary refill and no pedal edema Peripheral Pulses: Yes pulses 2+ throughout and femoral pulses present Skin no rashes or lesions noted Neuro oriented x3 and CN's II-XII intact bilaterally Psych Appearance: grossly normal and appropriate Assessment & Plan Assessment/Plan (1) CHF (congestive heart failure): PLAN: He does have evidence of congestive heart failure which appears to be mildly systolic. His estimated ejection fraction is mildly reduced estimated at 45% which appears to be global. He does have some renal dysfunction. My recommendation will be to attempt to control his rate with a beta-hoang and diuresis and cautiously. (2) Atrial fibrillation with RVR: PLAN: He does have evidence of paroxysmal atrial fibrillation. He he is going in and out of atrial fibrillation. At this time he appears to doing better on the beta-hoang with the Lopressor. I will recommend that we increase it to 50 mg twice a day and consider anticoagulation with Eliquis. He does have some renal dysfunction and we may need to adjust the dosages for this. He does have mild troponin elevation but I do not think that we should pursue an invasive approach at this time. We will transfer to the progressive care unit with discharge planning in place. Thank you for allowing me to participate in the care of your patient. Please don't hesitate to call if any issues arise.
--- NOTE | 2022-12-16 07:15 | PCM.PN.HOSP ---
Reason for Visit Reason for Visit: Diagnoses Unspecified atrial fibrillation (12/14/22) Heart failure, unspecified (12/14/22) Chronic pulmonary edema (12/14/22) Respiratory failure, unspecified, unspecified whether with hypoxia or hypercapnia (12/14/22) Other specified abnormalities of plasma proteins (12/14/22) Subjective Subjective Patient seen complains of generalized weakness. Heart rate relatively controlled. Patient switched from heparin to apixaban. Objective Data Objective Data Vital Signs: Vital Signs Temp Pulse Resp BP Pulse Ox O2 Del Method O2 Flow Rate 98.0 F 70 26 H 89/58 L 97 Nasal Cannula 6 12/16/22 04:00 12/16/22 07:00 12/16/22 07:00 12/16/22 07:00 12/16/22 07:00 12/16/22 07:00 12/16/22 07:00 FiO2 50 12/15/22 07:00 Oxygen Flow Rate (L/min) 6 Oxygen Delivery Method Nasal Cannula Weight: 88.9 kg Body Mass Index (BMI) 29.7 Intake & Output: Intake and Output for Last 24 Hours 12/14/22 12/15/22 12/16/22 23:59 23:59 23:59 Intake Total 1151.93 / 1151.93 50 / 50 Output Total 775 / 775 250 / 250 Balance 376.93 / 376.93 -200 / -200 Lab / Micro Data 12/16/22 07:30 12/16/22 07:30 Labs: Laboratory Results - last 24 hr 12/15/22 10:30: APTT Cancelled 12/15/22 11:14: APTT 69.5 H 12/15/22 16:55: APTT 87.5 H 12/15/22 23:10: APTT 109.3 H* Radiography Diagnostic Testing: Radiology Impression Echocardiogram 12/15/22 05:55 Interpretation Summary Normal LV size. Mild to moderate global left ventricular systolic dysfunction. The estimated ejection fraction is 45 %. Stage 3 diastolic dysfunction. Pulmonary artery systolic pressure is 32 mmHg. Contrast injection was performed. Ordering Physician: Chandra Tan Performed By: Tanika Kumar RVT, RDCS and Student Physical Exam Narrative GENERAL: cooperative HEENT: Atraumatic; normocephalic EYES; Anicteric, Normal Conjunctiva NECK; supple, normal thyroid, RESPIRATORY: Diminished to auscultation CARDIOVASCULAR: Irregularly irregular, tachycardic GI: soft, normoactive bowel sounds, : No Renal angle tenderness; EXTREMITIES: edema, no clubbing, MUSCULOSKELETAL: no muscle wasting NEURO: Awake; no lateralizing signs. SKIN: No Rash PSYCH; Flat affect Assessment & Plan Assessment/Plan (1) Respiratory failure: (2) Atrial fibrillation with RVR: (3) CHF (congestive heart failure): PLAN: Plan Patient is an 87-year-old gentleman admitted with shortness of breath and chest discomfort. Imaging studies obtained on admission demonstrated interstitial and airspace disease in the mid and lower lungs. An assessment of acute hypoxic respiratory failure made patient admitted to the intensive care unit for further management 1. Acute hypoxic respiratory failure ? Secondary to acute congestive heart failure. Patient admitted to the intensive care unit placed on noninvasive ventilation BiPAP. Patient was also managed with fluid restriction, strict input and output, daily weights as well as IV diuretics. 2D echo ordered for EF assessment ?12/16/2022 ? Patient remains on supplemental oxygen 2. Acute congestive heart failure with reduced ejection fraction ? Echo obtained did show mild to moderate global left ventricular systolic dysfunction with an EF of 45%. Patient remains on diuretic 3. New onset A-fib with RVR ? Patient apparently converted in the ED was on Cardizem. Had a recurrence in the ICU. Plan is to initiate Cardizem drip titrated to keep heart rate less than 100. Patient is on systemic anticoagulation with ? 12/16/2022 patient switched from heparin to apixaban 4. Elevated troponin ? Suspected to be secondary to demand ischemia from CHF as well as patient underlying A-fib with RVR trending troponins 5. Hypertension - Blood pressure controlled, home medications continued with dose adjustment as needed 6. Dyslipidemia -Patient is on statin therapy, continued at home dose 7. Physical deconditioning - Requested for PT OT eval and social services director to assist with discharge planning 8. DVT prophylaxis - On heparin Time spent in the patient's overall evaluation,decision-making process, review of diagnostic data, adjustment of management, discussion with other providers, nursing nursing and ancillary staff involved in patient's care documentation, 50 Minutes Charges/Coding Visit Charges Inpatient E&M: 57655 [facility] L[facility]
[2022-12-16 08:00] LABS: Hematocrit 30.4 % (40-54); Hemoglobin 10.4 g/dL (13.0-16.5); Mean Corp Hgb Conc 34.2 g/dL (32-36); Mean Corpuscular Hgb 31.5 pg (27.0-32.0); Mean Corpuscular Volume 92.1 fL (80-94); Mean Platelet Vol. 10.2 fl (6.2-12.0); Platelet Count 221 K/mm3 (150-450); RBC Distribution Width CV 14.3 % (11.6-14.6); White Blood Count 21.8 K/mm3 (4.4-11.0)
[2022-12-16 08:04] LABS: ALB/GLOB Ratio 0.6 RATIO (0.9-2.4); AST(SGOT) 83 U/L (15-37); Alanine Aminotransfer ALT/SGPT 33 U/L (16-61); Albumin, Serum 2.5 g/dL (3.2-5.0); Alkaline Phosphatase 73 U/L (45-117); Anion Gap 8 (5-15); BUN 55 mg/dL (7-18); Calcium,Total 8.1 mg/dL (8.5-10.1); Chloride 100 mmol/L (98-107); EST Glomerular Filtration Rate 30 mL/min (>60); Est Glom Filt Rate - Afr Amer 37 mL/min (>60); Estimated Creatinine Clearance 22.45 ml/min; Glucose 138 mg/dL (74-106); Magnesium 2.4 mg/dL (1.6-2.6); Phosphorus 4.5 mg/dL (2.5-4.9); Potassium 3.8 mmol/L (3.5-5.1); Protein, Total 6.5 g/dL (6.4-8.2); Sodium Level 132 mmol/L (136-145)
[2022-12-16 08:27] LABS: Partial Thromboplast Time 56.1 Seconds (24.1-36.2)
[2022-12-16] MEDS: Metoprolol Tartrate 50 MG Tablet PO (09:08)
[2022-12-16] MEDS: Furosemide 40 MG Tablet PO ×2 (09:09→17:03)
[2022-12-16] MEDS: APIXABAN 2.5 MG TABLET (WCH) PO ×2 (09:09→21:06)
[2022-12-16 10:11] LABS: Pathologist Review Reviewed
[2022-12-16] MEDS: MELATONIN 10 MG TABLET PO (21:05)
[2022-12-16] MEDS: Pravastatin 20 MG Tablet PO (21:05)
[2022-12-16] MEDS: Acetaminophen 325 MG Tablet 650 MG PO (22:51)
[2022-12-17] VITALS (30 sets, daily range): BP systolic 66–119; BP diastolic 40–86; PULSE 61–105; RESP 16–32; TEMP 36–37; O2SAT 27–100; BMI 29.9
[2022-12-17 06:41] LABS: Anion Gap 9 (5-15); BUN 73 mg/dL (7-18); BUN/Creat Ratio 29.3 RATIO (10-20); Calcium,Total 8.3 mg/dL (8.5-10.1); Chloride 98 mmol/L (98-107); Creatinine, Serum 2.49 mg/dL (0.70-1.30); EST Glomerular Filtration Rate 26 mL/min (>60); Est Glom Filt Rate - Afr Amer 32 mL/min (>60); Estimated Creatinine Clearance 19.84 ml/min; Glucose 105 mg/dL (74-106); Potassium 3.6 mmol/L (3.5-5.1); Sodium Level 131 mmol/L (136-145)
--- NOTE | 2022-12-17 06:57 | PCM.PN.HOSP ---
Reason for Visit Reason for Visit: Diagnoses Unspecified atrial fibrillation (12/14/22) Heart failure, unspecified (12/14/22) Chronic pulmonary edema (12/14/22) Respiratory failure, unspecified, unspecified whether with hypoxia or hypercapnia (12/14/22) Other specified abnormalities of plasma proteins (12/14/22) Subjective Subjective Patient did receive IV fluid resuscitation after episode of hypotension. Antihypertensives subsequently adjusted Objective Data Objective Data Vital Signs: Vital Signs Temp Pulse Resp BP Pulse Ox O2 Del Method O2 Flow Rate 96.8 F L 73 23 H 95/56 L 99 Nasal Cannula 6 12/17/22 04:00 12/17/22 06:00 12/17/22 06:00 12/17/22 06:00 12/17/22 06:00 12/17/22 06:00 12/17/22 06:00 FiO2 50 12/15/22 07:00 Oxygen Flow Rate (L/min) 6 Oxygen Delivery Method Nasal Cannula Weight: 89.7 kg Body Mass Index (BMI) 29.9 Intake & Output: Intake and Output for Last 24 Hours 12/15/22 12/16/22 12/17/22 23:59 23:59 23:59 Intake Total 1151.93 / 1151.93 1310.02 / 1310.02 0 / 0 Output Total 775 / 775 650 / 650 350 / 350 Balance 376.93 / 376.93 660.02 / 660.02 -350 / -350 Lab / Micro Data 12/17/22 04:20 12/17/22 04:20 Labs: Laboratory Results - last 24 hr 12/14/22 21:30: Diff Path Review Reviewed 12/16/22 07:08: APTT 56.1 H 12/16/22 07:30: WBC 21.8 H, RBC 3.30 L, Hgb 10.4 L, Hct 30.4 L, MCV 92.1 D, MCH 31.5, MCHC 34.2 D, RDW Std Deviation 49.0 H, RDW Coeff of Marlon 14.3, Plt Count 221, MPV 10.2, Sodium 132 L, Potassium 3.8, Chloride 100, Carbon Dioxide 24.0, Anion Gap 8, BUN 55 H, Creatinine 2.20 H, Estim Creat Clear Calc 22.45, Est GFR (MDRD) Af Amer 37 L, Est GFR (MDRD) Non-Af 30 L, BUN/Creatinine Ratio 25.0 H, Glucose 138 H, Calcium 8.1 L, Phosphorus 4.5, Magnesium 2.4, Total Bilirubin 0.90, AST 83 H, ALT 33, Alkaline Phosphatase 73, Total Protein 6.5, Albumin 2.5 L, Globulin 4.0, Albumin/Globulin Ratio 0.6 L 12/17/22 04:20: Sodium 131 L, Potassium 3.6, Chloride 98, Carbon Dioxide 24.0, Anion Gap 9, BUN 73 H, Creatinine 2.49 H, Estim Creat Clear Calc 19.84, Est GFR (MDRD) Af Amer 32 L, Est GFR (MDRD) Non-Af 26 L, BUN/Creatinine Ratio 29.3 H, Glucose 105, Calcium 8.3 L Physical Exam Narrative GENERAL: cooperative HEENT: Atraumatic; normocephalic EYES; Anicteric, Normal Conjunctiva NECK; supple, normal thyroid, RESPIRATORY: Diminished to auscultation CARDIOVASCULAR: Irregularly irregular, tachycardic GI: soft, normoactive bowel sounds, : No Renal angle tenderness; EXTREMITIES: edema, no clubbing, MUSCULOSKELETAL: no muscle wasting NEURO: Awake; no lateralizing signs. SKIN: No Rash PSYCH; Flat affect Assessment & Plan Assessment/Plan (1) Respiratory failure: (2) Atrial fibrillation with RVR: (3) CHF (congestive heart failure): PLAN: Plan Patient is an 87-year-old gentleman admitted with shortness of breath and chest discomfort. Imaging studies obtained on admission demonstrated interstitial and airspace disease in the mid and lower lungs. An assessment of acute hypoxic respiratory failure made patient admitted to the intensive care unit for further management 1. Acute hypoxic respiratory failure ? Secondary to acute congestive heart failure. Patient admitted to the intensive care unit placed on noninvasive ventilation BiPAP. Patient was also managed with fluid restriction, strict input and output, daily weights as well as IV diuretics. 2D echo ordered for EF assessment ?12/16/2022 ? Patient remains on supplemental oxygen 2. Acute congestive heart failure with reduced ejection fraction ? Echo obtained did show mild to moderate global left ventricular systolic dysfunction with an EF of 45%. Patient remains on diuretic ? 12/17/2022; adjusted patient diuretic dose given his relative hypotension 3. New onset A-fib with RVR ? Patient apparently converted in the ED was on Cardizem. Had a recurrence in the ICU. Plan is to initiate Cardizem drip titrated to keep heart rate less than 100. Patient is on systemic anticoagulation with ? 12/16/2022 patient switched from heparin to apixaban 4. Elevated troponin ? Suspected to be secondary to demand ischemia from CHF as well as patient underlying A-fib with RVR trending troponins 5. Hypertension - Blood pressure controlled, home medications continued with dose adjustment as needed -12/17/2022;Patient did receive IV fluid resuscitation after episode of hypotension. Antihypertensives subsequently adjusted 6. Dyslipidemia -Patient is on statin therapy, continued at home dose 7. Physical deconditioning - Requested for PT OT eval and high school social studies teacher to assist with discharge planning 8. DVT prophylaxis - On heparin Time spent in the patient's overall evaluation,decision-making process, review of diagnostic data, adjustment of management, discussion with other providers, nursing nursing and ancillary staff involved in patient's care documentation, 50 Minutes Charges/Coding Visit Charges Inpatient E&M: 18808 [facility] L3
[2022-12-17 07:54] LABS: Absolute Lymphocyte Count 1.69 X10^3/uL (0.83-4.51); Absolute Neutrophil Count 11.8 X10^3/uL (2.0-7.7); Basophil# 0.02 X10^3/uL; Basophil% 0.1 % (0-1); Eosinophil# 0.12 X10^3/uL; Eosinophils% 0.8 % (0-5); Hematocrit 29.1 % (40-54); Hemoglobin 10.1 g/dL (13.0-16.5); Lymphocyte # 1.69 X10^3/ul (0.83-4.51); Lymphocyte % 11.4 % (19-41); Mean Corp Hgb Conc 34.7 g/dL (32-36); Mean Corpuscular Hgb 31.7 pg (27.0-32.0); Mean Corpuscular Volume 91.2 fL (80-94); Mean Platelet Vol. 10.5 fl (6.2-12.0); Monocyte# 1.01 X10^3/uL; Monocyte% 6.8 % (0-10); NRBC Flagged by Analyzer 0 % (0-5); Neutrophil # 11.78 X10^3/uL (2.7-7.7); Neutrophil % 79.9 % (47-70); Platelet Count 231 K/mm3 (150-450); RBC Distribution Width CV 13.9 % (11.6-14.6); RBC Distribution Width SD 46.9 fl (35.1-43.9); Red Blood Count 3.19 M/mm3 (4.6-6.2); White Blood Count 14.8 K/mm3 (4.4-11.0)
--- NOTE | 2022-12-17 08:06 | WOUNDNOTE ---
In to reassess bilateral lower legs. removed the ARACELI wraps and dressings. pt states legs feel much better without the wraps. there is now some redness noted up the right leg to the mid thigh. no drainage noted. no large open areas. washed legs and feet with soap and water. pat dry. the thick dry skin has now softened. was able to remove a few more areas of the dry skin. since legs are not weeping and patient has minimal edema, will plan to leave wraps off at this time. the redness was marked with a skin pen. pt tolerated well. see skin photos.
--- NOTE | 2022-12-17 09:04 | WOUNDNOTE ---
skin photo: right lower leg
--- NOTE | 2022-12-17 09:05 | WOUNDNOTE ---
skin photo: left lower leg
[2022-12-17] MEDS: APIXABAN 2.5 MG TABLET (WCH) PO ×2 (09:19→22:55)
--- NOTE | 2022-12-17 10:25 | PCM.CONS.R ---
Assessment & Plan Assessment/Plan (1) MARIN (acute kidney injury): PLAN: No prior baseline available. Will review in clinisync if any previous labs available. Came in with a creatinine of 2.1, 1.8 on 12/16 and up to 2.4 today. Required straight cath yesterday, today he has been voiding and bladder scan has been negative. Blood pressure has been low overnight likely causing MARIN. Clinically he appears volume overloaded with a wet looking chest x-ray and crackles on exam. Avoid further fluid bolus if possible. He may need pressors if blood pressure remains low. Congestive heart failure. Chest x-ray was wet, BNP more than 2000. Has crackles on examination. He has received IV Lasix yesterday. Lasix is on hold today due to low blood pressure. Will resume when blood pressure improves. Echocardiogram with decreased ejection fraction 45%, grade 3 diastolic dysfunction. Management as per cardiology Atrial fibrillation with RVR. Cardiology following HPI Consult Data Date of Consult: 12/17/22 HPI Narrative Reason for Consultation: Acute renal failure HPI Narrative: NAEEM GIBSON, is a 87 M who presents to the hospital with shortness of breath. Nephrology on consultation due to acute renal failure. Came in with a creatinine of 2.1, was 1.8 yesterday, up to 2.5 today. Initial admission diagnosis was congestive heart failure. Chest x-ray was pretty wet, BNP significantly elevated. He was also found to have atrial fibrillation with rapid ventricular response, required Cardizem and now on metoprolol. Required straight cath yesterday, voiding yesterday night and today morning. Currently feels better, breathing is better than before. Blood pressure was low this morning, received a bolus of IV fluids. Minimal lower extremity edema. Saturating well on nasal cannula. Denies any urinary complaints at this point. [facility] Medical History HTN (hypertension) Hypercholesteremia Home Medications amlodipine 5 mg tablet 5 mg PO DAILY 12/14/22 [History Last Taken Unknown] furosemide 20 mg tablet (Lasix) 20 mg PO SUTUTHSA 12/14/22 [History Last Taken Unknown] furosemide 40 mg tablet (Lasix) 40 mg PO MOWEFR 12/14/22 [History Last Taken Unknown] lisinopril 10 mg tablet 10 mg PO DAILY 12/14/22 [History Last Taken Unknown] pravastatin 20 mg tablet 20 mg PO QHS 12/14/22 [History Last Taken Unknown] Allergy/AdvReac Type Severity Reaction Status Date / Time No Known Drug Allergies Allergy Mild none Verified 12/14/22 23:24 Surgical History History of appendectomy Social History Smoking Status: Never smoker ROS ROS Narrative Negative except above Physical Exam Narrative Alert awake oriented x 3 no obvious distress no pallor no icterus no JVD s1s2 no murmurs lungs rales abdomen soft no organomegaly no edema no cyanosis Lab / Micro Data 12/17/22 04:20 12/17/22 04:20 Labs: Laboratory Results - last 24 hr 12/17/22 04:20: WBC 14.8 H, RBC 3.19 L, Hgb 10.1 L, Hct 29.1 L, MCV 91.2, MCH 31.7, MCHC 34.7, RDW Std Deviation 46.9 H, RDW Coeff of Marlon 13.9, Plt Count 231, MPV 10.5, Immature Gran % (Auto) 1.000 H, Neut % (Auto) 79.9 H, Lymph % (Auto) 11.4 L, [place] % (Auto) 6.8, Eos % (Auto) 0.8, Baso % (Auto) 0.1, Absolute Neuts (auto) 11.8 H, Absolute Lymphs (auto) 1.69, Nucleated RBC % 0, Sodium 131 L, Potassium 3.6, Chloride 98, Carbon Dioxide 24.0, Anion Gap 9, BUN 73 H, Creatinine 2.49 H, Estim Creat Clear Calc 19.84, Est GFR (MDRD) Af Amer 32 L, Est GFR (MDRD) Non-Af 26 L, BUN/Creatinine Ratio 29.3 H, Glucose 105, Calcium 8.3 L
--- NOTE | 2022-12-17 15:31 | CASEMGMT ---
SW met with patient. Introduced self and role at [facility]. SW asked patient if he feels like he is okay to go home at discharge. Patient said he thinks he will be fine and he won't be doing any work. SW then went to the ICU waiting room and spoke with patient's daughters. Discussed HH vs SNF with them and they said patient would not want SNF nor would they. SW let them know SW and ADOLPH CM will continue to follow and assist with d/c needs. Razia LOPES
[2022-12-17 17:59] LABS: Bacteria 0 SEEN /hpf (None Seen); Mucous, Urine 0 SEEN /hpf (<or=2+); Red Blood Cells-Urine 0 SEEN /hpf (0-5); White Blood Cells 0 SEEN /hpf (0-5)
[2022-12-17 18:00] LABS: Color, Urine Yellow (Yellow); Glucose, Dipstick Normal (Normal); Ketone-Dipstick Negative (Negative); Leukocyte Esterase-Dipstick 25 /ul (Negative); Nitrite-Dipstick Negative (Negative); Occult Blood-Urine Negative /ul (Negative); Protein-Dipstick 15 mg/dl (Negative); Specific Gravity, Urine 1.015 (1.002-1.030); Urine Bilirubin Dipstick Negative (Negative); Urine Clarity Clear (Clear); Urine Urobilinogen Normal (Normal)
[2022-12-17 18:30] LABS: Squamous Epithelial Cells - UA 0-5 SEEN /hpf (0-5)
[2022-12-17] MEDS: 0.9% Saline Lock 10 ML Syringe IV (20:18)
--- NOTE | 2022-12-17 22:12 | CPS ---
Patient refused PAP therapy for the night on 2L 97%
[2022-12-17] MEDS: MELATONIN 10 MG TABLET PO (22:54)
[2022-12-17] MEDS: Pravastatin 20 MG Tablet PO (22:54)
[2022-12-18] VITALS (20 sets, daily range): BP systolic 97–132; BP diastolic 54–76; PULSE 73–105; RESP 16–33; TEMP 36.1–36.8; O2SAT 93–100; BMI 29.7
[2022-12-18 04:12] LABS: Absolute Lymphocyte Count 1.16 X10^3/uL (0.83-4.51); Absolute Neutrophil Count 10.2 X10^3/uL (2.0-7.7); Basophil# 0.03 X10^3/uL; Basophil% 0.2 % (0-1); Eosinophil# 0.37 X10^3/uL; Eosinophils% 2.8 % (0-5); Hemoglobin 10.6 g/dL (13.0-16.5); Lymphocyte # 1.16 X10^3/ul (0.83-4.51); Lymphocyte % 8.9 % (19-41); Mean Corp Hgb Conc 34.2 g/dL (32-36); Mean Corpuscular Hgb 31.2 pg (27.0-32.0); Mean Corpuscular Volume 91.2 fL (80-94); Mean Platelet Vol. 10.4 fl (6.2-12.0); Monocyte% 9.2 % (0-10); NRBC Flagged by Analyzer 0 % (0-5); Neutrophil # 10.15 X10^3/uL (2.7-7.7); Neutrophil % 77.8 % (47-70); Platelet Count 269 K/mm3 (150-450); RBC Distribution Width CV 13.8 % (11.6-14.6); RBC Distribution Width SD 46.5 fl (35.1-43.9); White Blood Count 13.1 K/mm3 (4.4-11.0)
[2022-12-18 04:31] LABS: Anion Gap 7 (5-15); BUN 62 mg/dL (7-18); BUN/Creat Ratio 36.3 RATIO (10-20); Calcium,Total 8.4 mg/dL (8.5-10.1); Chloride 103 mmol/L (98-107); Creatinine, Serum 1.71 mg/dL (0.70-1.30); EST Glomerular Filtration Rate 40 mL/min (>60); Est Glom Filt Rate - Afr Amer 49 mL/min (>60); Estimated Creatinine Clearance 28.89 ml/min; Glucose 120 mg/dL (74-106); Potassium 3.6 mmol/L (3.5-5.1); Sodium Level 135 mmol/L (136-145)
--- NOTE | 2022-12-18 07:16 | PCM.PN.HOSP ---
Reason for Visit Reason for Visit: Diagnoses Unspecified atrial fibrillation (12/14/22) Heart failure, unspecified (12/14/22) Chronic pulmonary edema (12/14/22) Respiratory failure, unspecified, unspecified whether with hypoxia or hypercapnia (12/14/22) Acute kidney failure, unspecified (12/14/22) Other specified abnormalities of plasma proteins (12/14/22) Subjective Subjective Patient seen improving clinically. Blood pressure has stabilized with discontinuation of metoprolol and holding of furosemide. Case was discussed with Dr. Ramirez plan is to initiate patient on amiodarone. Case was also discussed with case management as well as family regarding disposition Objective Data Objective Data Vital Signs: Vital Signs Temp Pulse Resp BP Pulse Ox O2 Del Method O2 Flow Rate 97.4 F L 94 19 H 114/76 97 Nasal Cannula 2 12/18/22 04:00 12/18/22 07:00 12/18/22 07:00 12/18/22 07:00 12/18/22 07:00 12/18/22 07:00 12/18/22 07:00 FiO2 50 12/15/22 07:00 Oxygen Flow Rate (L/min) 2 Oxygen Delivery Method Nasal Cannula Weight: 88.9 kg Body Mass Index (BMI) 29.7 Intake & Output: Intake and Output for Last 24 Hours 12/16/22 12/17/22 12/18/22 23:59 23:59 23:59 Intake Total 1310.02 / 1310.02 250 / 370 120 / 120 Output Total 650 / 650 1350 / 1350 710 / 710 Balance 660.02 / 660.02 -1100 / -980 -590 / -590 Lab / Micro Data 12/18/22 03:58 12/18/22 03:58 Labs: Laboratory Results - last 24 hr 12/17/22 04:20: WBC 14.8 H, RBC 3.19 L, Hgb 10.1 L, Hct 29.1 L, MCV 91.2, MCH 31.7, MCHC 34.7, RDW Std Deviation 46.9 H, RDW Coeff of Marlon 13.9, Plt Count 231, MPV 10.5, Immature Gran % (Auto) 1.000 H, Neut % (Auto) 79.9 H, Lymph % (Auto) 11.4 L, [place] % (Auto) 6.8, Eos % (Auto) 0.8, Baso % (Auto) 0.1, Absolute Neuts (auto) 11.8 H, Absolute Lymphs (auto) 1.69, Nucleated RBC % 0 12/17/22 17:50: Urine Color Yellow, Urine Clarity Clear, Urine pH 5.0, Ur Specific [place] 1.015, Urine Protein 15 H, Urine Glucose (UA) Normal, Urine Ketones Negative, Urine Occult Blood Negative, Urine Nitrite Negative, Urine Bilirubin Negative, Urine Urobilinogen Normal, Ur Leukocyte Esterase 25 H, Urine RBC 0 SEEN, Urine WBC 0 SEEN, Ur Squamous Epith Cells 0-5 SEEN, Urine Bacteria 0 SEEN, Urine Mucus 0 SEEN 12/18/22 03:58: WBC 13.1 H, RBC 3.40 L, Hgb 10.6 L, Hct 31.0 L, MCV 91.2, MCH 31.2, MCHC 34.2, RDW Std Deviation 46.5 H, RDW Coeff of Marlon 13.8, Plt Count 269, MPV 10.4, Immature Gran % (Auto) 1.100 H, Neut % (Auto) 77.8 H, Lymph % (Auto) 8.9 L, [place] % (Auto) 9.2, Eos % (Auto) 2.8, Baso % (Auto) 0.2, Absolute Neuts (auto) 10.2 H, Absolute Lymphs (auto) 1.16, Nucleated RBC % 0, Sodium 135 L, Potassium 3.6, Chloride 103, Carbon Dioxide 25.0, Anion Gap 7, BUN 62 H, Creatinine 1.71 H, Estim Creat Clear Calc 28.89, Est GFR (MDRD) Af Amer 49 L, Est GFR (MDRD) Non-Af 40 L, BUN/Creatinine Ratio 36.3 H, Glucose 120 H, Calcium 8.4 L Physical Exam Narrative GENERAL: cooperative HEENT: Atraumatic; normocephalic EYES; Anicteric, Normal Conjunctiva NECK; supple, normal thyroid, RESPIRATORY: Diminished to auscultation CARDIOVASCULAR: Irregularly irregular, tachycardic GI: soft, normoactive bowel sounds, : No Renal angle tenderness; EXTREMITIES: edema, no clubbing, MUSCULOSKELETAL: no muscle wasting NEURO: Awake; no lateralizing signs. SKIN: No Rash PSYCH; Flat affect Assessment & Plan Assessment/Plan (1) Respiratory failure: (2) Atrial fibrillation with RVR: (3) CHF (congestive heart failure): PLAN: Plan Patient is an 87-year-old gentleman admitted with shortness of breath and chest discomfort. Imaging studies obtained on admission demonstrated interstitial and airspace disease in the mid and lower lungs. An assessment of acute hypoxic respiratory failure made patient admitted to the intensive care unit for further management 1. Acute hypoxic respiratory failure ? Secondary to acute congestive heart failure. Patient admitted to the intensive care unit placed on noninvasive ventilation BiPAP. Patient was also managed with fluid restriction, strict input and output, daily weights as well as IV diuretics. 2D echo ordered for EF assessment ?12/16/2022 ? Patient remains on supplemental oxygen 2. Acute congestive heart failure with reduced ejection fraction ? Echo obtained did show mild to moderate global left ventricular systolic dysfunction with an EF of 45%. Patient remains on diuretic ? 12/17/2022; adjusted patient diuretic dose given his relative hypotension ? 12/18/2022; patient blood pressure has stabilized 3. New onset A-fib with RVR ? Patient apparently converted in the ED was on Cardizem. Had a recurrence in the ICU. Plan is to initiate Cardizem drip titrated to keep heart rate less than 100. Patient is on systemic anticoagulation with ? 12/16/2022 patient switched from heparin to apixaban ? 12/18/2022; patient did not tolerate beta-blockers started on amiodarone 4. Elevated troponin ? Suspected to be secondary to demand ischemia from CHF as well as patient underlying A-fib with RVR trending troponins 5. Hypertension - Blood pressure controlled, home medications continued with dose adjustment as needed -12/17/2022;Patient did receive IV fluid resuscitation after episode of hypotension. Antihypertensives subsequently adjusted 6. Dyslipidemia -Patient is on statin therapy, continued at home dose 7. Physical deconditioning - Requested for PT OT eval and nephrology social worker to assist with discharge planning 8. DVT prophylaxis - On heparin 9. Acute kidney injury ? Superimposed on chronic kidney disease stage III. Kidney function did improve with holding of diuretics Time spent in the patient's overall evaluation,decision-making process, review of diagnostic data, adjustment of management, discussion with other providers, nursing nursing and ancillary staff involved in patient's care documentation, 50 Minutes Charges/Coding Visit Charges Inpatient E&M: [id number] [place] [id number]
--- NOTE | 2022-12-18 08:43 | CASEMGMT ---
Social Work SW spoke w/two of pt's daughters in the ICU waiting room in regard to discharge plan. Pt had wanted to go home, however, SW explained to family pt is walking 3 feet with therapy at this time. SW explained if pt were to go home, someone would need to stay with him initially at all times. Daughters explain if pt were to go home they would need some equipment, such as a bedside commode. SW explained we can get any equipment needed ordered for him. SW did also broach the topic of pt going somewhere for rehab prior to returning home. Initially the daughters said no. However, upon further discussion, they think this may be something to consider. SW provided to daughters a list of snf facilities via [employer], in pt's insurance network and preferred geographic location, complete with quality and resource use data. Daughters are interested in TCU possibly, but need to speak with the other children(there are 6 altogether) and with the pt as well. SW explained will look into the bed availability in TCU and let them know about that as well. SW educated the daughters on the Medicare coverage for SNF, and anticipated length of stay should pt go to TCU(20 days as pt does not have secondary insurance and would have a copay starting on day 21). Daughters state understanding. They have SW's number to call once they make a decision. SW called TCU, referral made, once SW hears back from TCU will let pt and family know if they will take pt. Physician then came to the floor, we spoke w/family and pt together. Pt may be agreeable to TCU. SW explained the Medicare benefit to pt. Pt may be agreeable to go for a week if accepted. Daughers still want to speak w/other family members. SW explained will let them know as soon as we hear back from TCU if they have a spot for him. SW will continue to follow. Plan: TCU vs home w/family. JC Richey
[2022-12-18] MEDS: APIXABAN 2.5 MG TABLET (WCH) PO ×2 (09:32→20:40)
[2022-12-18] MEDS: Amiodarone 200 MG Tablet PO ×2 (09:32→20:40)
--- NOTE | 2022-12-18 11:07 | PCM.PN.CARD ---
Subjective Subjective The patient was seen and evaluated. Events of yesterday noted. It appears he is not able to tolerate the beta-hoang. Objective Data Vital Signs: Vital Signs Temp Pulse Resp BP Pulse Ox O2 Del Method O2 Flow Rate 97.2 F L 105 H 25 H 109/61 97 Nasal Cannula 2 12/18/22 09:00 12/18/22 10:00 12/18/22 10:00 12/18/22 10:00 12/18/22 10:00 12/18/22 10:00 12/18/22 10:00 FiO2 50 12/15/22 07:00 Oxygen Flow Rate (L/min) 2 Oxygen Delivery Method Nasal Cannula Weight: 195 lb 15.855 oz Body Mass Index (BMI) 29.7 Intake & Output: Intake and Output for Last 24 Hours 12/16/22 12/17/22 12/18/22 23:59 23:59 23:59 Intake Total 1310.02 / 1310.02 250 / 370 120 / 120 Output Total 650 / 650 1350 / 1350 935 / 935 Balance 660.02 / 660.02 -1100 / -980 -815 / -815 Lab / Micro Data 12/18/22 03:58 12/18/22 03:58 Labs: Laboratory Results - last 24 hr 12/17/22 17:50: Urine Color Yellow, Urine Clarity Clear, Urine pH 5.0, Ur Specific [place] 1.015, Urine Protein 15 H, Urine Glucose (UA) Normal, Urine Ketones Negative, Urine Occult Blood Negative, Urine Nitrite Negative, Urine Bilirubin Negative, Urine Urobilinogen Normal, Ur Leukocyte Esterase 25 H, Urine RBC 0 SEEN, Urine WBC 0 SEEN, Ur Squamous Epith Cells 0-5 SEEN, Urine Bacteria 0 SEEN, Urine Mucus 0 SEEN 12/18/22 03:58: WBC 13.1 H, RBC 3.40 L, Hgb 10.6 L, Hct 31.0 L, MCV 91.2, MCH 31.2, MCHC 34.2, RDW Std Deviation 46.5 H, RDW Coeff of Marlon 13.8, Plt Count 269, MPV 10.4, Immature Gran % (Auto) 1.100 H, Neut % (Auto) 77.8 H, Lymph % (Auto) 8.9 L, [place] % (Auto) 9.2, Eos % (Auto) 2.8, Baso % (Auto) 0.2, Absolute Neuts (auto) 10.2 H, Absolute Lymphs (auto) 1.16, Nucleated RBC % 0, Sodium 135 L, Potassium 3.6, Chloride 103, Carbon Dioxide 25.0, Anion Gap 7, BUN 62 H, Creatinine 1.71 H, Estim Creat Clear Calc 28.89, Est GFR (MDRD) Af Amer 49 L, Est GFR (MDRD) Non-Af 40 L, BUN/Creatinine Ratio 36.3 H, Glucose 120 H, Calcium 8.4 L Cardiology Labs/Tests 12/17/22 17:50: Urine Color Yellow, Urine Clarity Clear, Urine pH 5.0, Ur Specific [place] 1.015, Urine Protein 15 H, Urine Glucose (UA) Normal, Urine Ketones Negative, Urine Occult Blood Negative, Urine Nitrite Negative, Urine Bilirubin Negative, Urine Urobilinogen Normal, Ur Leukocyte Esterase 25 H, Urine RBC 0 SEEN, Urine WBC 0 SEEN 12/18/22 03:58: WBC 13.1 H, RBC 3.40 L, Hgb 10.6 L, Hct 31.0 L, MCV 91.2, MCH 31.2, MCHC 34.2, Plt Count 269, MPV 10.4, Immature Gran % (Auto) 1.100 H, Neut % (Auto) 77.8 H, Lymph % (Auto) 8.9 L, [place] % (Auto) 9.2, Eos % (Auto) 2.8, Baso % (Auto) 0.2, Absolute Neuts (auto) 10.2 H, Nucleated RBC % 0, Sodium 135 L, Potassium 3.6, Chloride 103, Carbon Dioxide 25.0, Anion Gap 7, BUN 62 H, Creatinine 1.71 H, Est GFR (MDRD) Af Amer 49 L, Est GFR (MDRD) Non-Af 40 L, BUN/Creatinine Ratio 36.3 H, Glucose 120 H, Calcium 8.4 L Rhythm: EKG: ECHO: Stress Test: Cardiac Cath: PCI: CT Surgery: Holter monitor: EPS: PPM: CXR: Chest CT Scan: Physical Exam Const alert, oriented x3 and no apparent distress General Appearance: cooperative HEENT hearing grossly normal bilaterally Head and Scalp: atraumatic Eyes EOMs intact bilaterally Neck General: normal visual inspection Chest inspection of chest normal and palpation of chest normal Resp normal respiratory effort Auscultation: clear to auscultation bilaterally Cardio regular rate, regular rhythm, S1 normal heart sound and S2 normal heart sound Jugular Venous Distention: JVD GI normal to inspection, nondistended, normoactive bowel sounds Extremity normal capillary refill and no pedal edema Peripheral Pulses: Yes pulses 2+ throughout and femoral pulses present Skin no rashes or lesions noted Neuro oriented x3 and CN's II-XII intact bilaterally Psych Appearance: grossly normal and appropriate Assessment & Plan Assessment/Plan (1) CHF (congestive heart failure): PLAN: He does have evidence of congestive heart failure which appears to be mildly systolic. His estimated ejection fraction is mildly reduced estimated at 45% which appears to be global. He does have some renal dysfunction. My recommendation will be to attempt to control his rate with amiodarone. It appears that he has not been able to tolerate the beta-hoang due to hypotension. This will be added on later on. (2) Atrial fibrillation with RVR: PLAN: He does have evidence of paroxysmal atrial fibrillation. He he is going in and out of atrial fibrillation. At this time he appears to doing better in sinus rhythm. He had been on the beta-hoang but he has not been able to tolerate this due to hypotension. He will remain on Eliquis and we will start amiodarone 200 mg twice a day for 2 weeks and then 200 mg once a day. We will follow him up as an outpatient and then adjust his medications and add on as appropriate. We will transfer to the progressive care unit with discharge planning in place. Thank you for allowing me to participate in the care of your patient. Please don't hesitate to call if any issues arise.
--- NOTE | 2022-12-18 11:54 | CASEMGMT ---
Social Work SW spoke w/TCU, they will have a bed for pt tomorrow. SW spoke w/pt, pt's two daughters in the room again(Abby and Ema). SW explained TCU will have a bed tomorrow. Pt agreeable, daughters present say that all of the family is in agreement with this plan. SW explained will let physician know and we will plan for discharge to TCU tomorrow. SW let hospitalist know. Green sheet on chart in anticipation of discharge to TCU tomorrow. Pt to TCU tomorrow, skilled. JC Richey
--- NOTE | 2022-12-18 12:38 | PCM.TXEXTCAR ---
Diet Diet Order/Speech Therapy: 12/14/22 23:49 Diet: Cardiac - Heart Healthy Food consistency:: Regular Liquid Consistency:: Regular/Thin Dietary Modifications:: Sodium Restricted Is pt able to select menu?: Yes Fluid restriction:: 1500 mL Wound(s) L lower extremity: Wound Type: Stasis Ulcer R lower extremity: Wound Type: Stasis Ulcer Problem/Diagnosis (1) CHF (congestive heart failure): Status: Acute Code(s): I50.9 - Heart failure, unspecified (2) Atrial fibrillation with RVR: Status: Acute Code(s): I48.91 - Unspecified atrial fibrillation Plan Patient is an 87-year-old gentleman admitted with shortness of breath and chest discomfort. Imaging studies obtained on admission demonstrated interstitial and airspace disease in the mid and lower lungs. An assessment of acute hypoxic respiratory failure made patient admitted to the intensive care unit for further management 1. Acute hypoxic respiratory failure ? Secondary to acute congestive heart failure. Patient admitted to the intensive care unit placed on noninvasive ventilation BiPAP. Patient was also managed with fluid restriction, strict input and output, daily weights as well as IV diuretics. 2D echo ordered for EF assessment ?12/16/2022 ? Patient remains on supplemental oxygen 2. Acute congestive heart failure with reduced ejection fraction ? Echo obtained did show mild to moderate global left ventricular systolic dysfunction with an EF of 45%. Patient remains on diuretic ? 12/17/2022; adjusted patient diuretic dose given his relative hypotension ? 12/18/2022; patient blood pressure has stabilized 3. New onset A-fib with RVR ? Patient apparently converted in the ED was on Cardizem. Had a recurrence in the ICU. Plan is to initiate Cardizem drip titrated to keep heart rate less than 100. Patient is on systemic anticoagulation with ? 12/16/2022 patient switched from heparin to apixaban ? 12/18/2022; patient did not tolerate beta-blockers started on amiodarone 4. Elevated troponin ? Suspected to be secondary to demand ischemia from CHF as well as patient underlying A-fib with RVR trending troponins 5. Hypertension - Blood pressure controlled, home medications continued with dose adjustment as needed -12/17/2022;Patient did receive IV fluid resuscitation after episode of hypotension. Antihypertensives subsequently adjusted 6. Dyslipidemia -Patient is on statin therapy, continued at home dose 7. Physical deconditioning - Requested for PT OT eval and social work program coordinator to assist with discharge planning 8. DVT prophylaxis - On heparin 9. Acute kidney injury ? Superimposed on chronic kidney disease stage III. Kidney function did improve with holding of diuretics Time spent in the patient's overall evaluation,decision-making process, review of diagnostic data, adjustment of management, discussion with other providers, nursing nursing and ancillary staff involved in patient's care documentation, 50 Minutes Allergies/Procedures Done in Hospital Allergies No Known Drug Allergies Allergy (Mild, Verified 12/14/22 23:24) none Procedures: Transthoracic Echo Type of Care/Length of Stay Estimated LOS: Convalescent Care Less Than 30 days Type of Care Needed: Skilled Rehab Potential: Good Prognosis: Good Additional Orders/Day of Discharge Day of Discharge: 12/19/22 Dietary and Speech Recommendations Dietitian Recommendations/Changes: Continue cardiac/sodium-restricted diet--with 1500mL/day fluid restriction. Offer ONS as needed once PO established w/ meals. Discharge Plan Admission Admit Date/Time: 12/14/22 23:02 Attending Provider: Prashanth Lee Primary Care Provider: George Silver Consulting Providers: Chandra Tan; Mark Ramirez; Coral Ahumada Discharge Orders/Prescriptions Prescriptions: New acetaminophen 325 mg Tablet 650 mg PO Q4H PRN PRN (Reason: Pain Score 1-10) Qty: 0 0RF amiodarone 200 mg Tablet 200 mg PO BID Qty: 0 0RF Rx Instructions: 200 mg p.o. twice daily for 2 weeks then 200 mg daily furosemide 20 mg Tablet 20 mg PO BIDLX Qty: 0 0RF Eliquis 5 mg Tablet 2.5 mg PO BID Qty: 0 0RF melatonin 10 mg Tablet, Sublingual 10 mg PO QHS Qty: 0 0RF Continued pravastatin 20 mg tablet 20 mg PO QHS Discontinued amlodipine 5 mg tablet 5 mg PO DAILY lisinopril 10 mg tablet 10 mg PO DAILY furosemide [Lasix] 20 mg tablet 20 mg PO SUTUTHSA furosemide [Lasix] 40 mg tablet 40 mg PO MOWEFR Referrals / Follow Up: Mark Ramirez MD [Med Staff - Active Staff] - Within 1 Month George Silver DO [Primary Care Provider] - Within 2 Weeks Disposition Disposition (needs filled in before D/C Order can be placed): [facility] (1) CHF (congestive heart failure) Qualifiers: Heart failure type: systolic Heart failure chronicity: acute on chronic Qualified Code(s): I50.23 - Acute on chronic systolic (congestive) heart failure
--- NOTE | 2022-12-18 15:18 | PN.RENAL_ITS ---
Subjective Subjective no new events BP is better no on amiodarone Objective Data Objective Data Vital Signs: Vital Signs Temp Pulse Resp BP Pulse Ox O2 Del Method O2 Flow Rate 97.0 F L 73 16 104/54 L 94 Room Air 2 12/18/22 13:51 12/18/22 13:51 12/18/22 13:51 12/18/22 13:51 12/18/22 14:25 12/18/22 13:58 12/18/22 11:00 FiO2 50 12/15/22 07:00 Oxygen Flow Rate (L/min) 2 Oxygen Delivery Method Room Air Weight: 88.9 kg Body Mass Index (BMI) 29.7 Intake & Output: Intake and Output for Last 24 Hours 12/16/22 12/17/22 12/18/22 23:59 23:59 23:59 Intake Total 1310.02 / 1310.02 250 / 370 120 / 120 Output Total 650 / 650 1350 / 1350 935 / 935 Balance 660.02 / 660.02 -1100 / -980 -815 / -815 Lab / Micro Data 12/18/22 03:58 12/18/22 03:58 Labs: Laboratory Results - last 24 hr 12/17/22 17:50: Urine Color Yellow, Urine Clarity Clear, Urine pH 5.0, Ur Specific [place] 1.015, Urine Protein 15 H, Urine Glucose (UA) Normal, Urine Ketones Negative, Urine Occult Blood Negative, Urine Nitrite Negative, Urine Bilirubin Negative, Urine Urobilinogen Normal, Ur Leukocyte Esterase 25 H, Urine RBC 0 SEEN, Urine WBC 0 SEEN, Ur Squamous Epith Cells 0-5 SEEN, Urine Bacteria 0 SEEN, Urine Mucus 0 SEEN 12/18/22 03:58: WBC 13.1 H, RBC 3.40 L, Hgb 10.6 L, Hct 31.0 L, MCV 91.2, MCH 31.2, MCHC 34.2, RDW Std Deviation 46.5 H, RDW Coeff of Marlon 13.8, Plt Count 269, MPV 10.4, Immature Gran % (Auto) 1.100 H, Neut % (Auto) 77.8 H, Lymph % (Auto) 8.9 L, [place] % (Auto) 9.2, Eos % (Auto) 2.8, Baso % (Auto) 0.2, Absolute Neuts (auto) 10.2 H, Absolute Lymphs (auto) 1.16, Nucleated RBC % 0, Sodium 135 L, Potassium 3.6, Chloride 103, Carbon Dioxide 25.0, Anion Gap 7, BUN 62 H, Creatinine 1.71 H, Estim Creat Clear Calc 28.89, Est GFR (MDRD) Af Amer 49 L, Est GFR (MDRD) Non-Af 40 L, BUN/Creatinine Ratio 36.3 H, Glucose 120 H, Calcium 8.4 L Physical Exam Narrative Alert awake oriented x 3 no obvious distress no pallor no icterus no JVD s1s2 no murmurs lungs rales abdomen soft no organomegaly no edema no cyanosis Assessment & Plan Assessment/Plan (1) MARIN (acute kidney injury): PLAN: No prior baseline available. Came in with a creatinine of 2.1 has been voiding and bladder scan has been negative. BP better cr is better lasix when ok with cardiology Atrial fibrillation with RVR. Cardiology following
[2022-12-18] MEDS: Acetaminophen 325 MG Tablet 650 MG PO (15:21)
[2022-12-18] MEDS: Furosemide 20 MG Tablet PO (18:46)
[2022-12-18] MEDS: MELATONIN 10 MG TABLET PO (20:40)
[2022-12-18] MEDS: Pravastatin 20 MG Tablet PO (20:40)
--- NOTE | 2022-12-19 00:32 | PCM.HOSP.N ---
Hospitalist Note director of medical staff services noting patient with exertion with dyspnea with wheezing, oxygenation remains stable but symptomatic. Will add budesonide and PRN albuterol but discussed with staff to avoid albuterol unless absolutely necessary given his recent PAF with RVR.
[2022-12-19] MEDS: Budesonide Respules 0.5 MG/2 ML AMPUL.NEB. INHALATION ×2 (02:08→07:08)
[2022-12-19 02:10] VITALS: PULSE 104; RESP 12
[2022-12-19 03:05] VITALS: BP 133/62; PULSE 91; RESP 20; TEMP 37; O2SAT 93
[2022-12-19 06:00] VITALS: BMI 29.8
[2022-12-19 07:08] VITALS: PULSE 122; RESP 16
--- NOTE | 2022-12-19 07:23 | PCM.DC.SUM ---
Providers Date of Admission: 12/14/22 Date of Discharge: 12/19/22 Primary Care Physician: Dr. 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 Imaging studies obtained on admission demonstrated interstitial and airspace disease in the mid and lower lungs. An assessment of acute hypoxic respiratory failure made patient admitted to the intensive care unit for further management 1. Acute hypoxic respiratory failure ? Secondary to acute congestive heart failure. Patient admitted to the intensive care unit placed on noninvasive ventilation BiPAP. Patient was also managed with fluid restriction, strict input and output, daily weights as well as IV diuretics. 2D echo ordered for EF assessment ?12/16/2022 ? Patient remains on supplemental oxygen 2. Acute congestive heart failure with reduced ejection fraction ? Echo obtained did show mild to moderate global left ventricular systolic dysfunction with an EF of 45%. Patient remains on diuretic ? 12/17/2022; adjusted patient diuretic dose given his relative hypotension ? 12/18/2022; patient blood pressure has stabilized 3. New onset A-fib with RVR ? Patient apparently converted in the ED was on Cardizem. Had a recurrence in the ICU. Plan is to initiate Cardizem drip titrated to keep heart rate less than 100. Patient is on systemic anticoagulation with ? 12/16/2022 patient switched from heparin to apixaban ? 12/18/2022; patient did not tolerate beta-blockers started on amiodarone 4. Elevated troponin ? Suspected to be secondary to demand ischemia from CHF as well as patient underlying A-fib with RVR trending troponins 5. Hypertension - Blood pressure controlled, home medications continued with dose adjustment as needed -12/17/2022;Patient did receive IV fluid resuscitation after episode of hypotension. Antihypertensives subsequently adjusted 6. Dyslipidemia -Patient is on statin therapy, continued at home dose 7. Physical deconditioning - Requested for PT OT eval and social insurance specialist to assist with discharge planning 8. DVT prophylaxis - On heparin 9. Acute kidney injury ? Superimposed on chronic kidney disease stage III. Kidney function did improve with holding of diuretics Time spent in the patient's overall evaluation,decision-making process, review of diagnostic data, adjustment of management, discussion with other providers, nursing nursing and ancillary staff involved in patient's care documentation, 35 Minutes Medications at Discharge Home Medications pravastatin 20 mg tablet 20 mg PO QHS 12/14/22 acetaminophen 325 mg tablet 650 mg (2 x 325 mg) PO Q4H PRN PRN Pain Score 1-10 #0 tabs 12/18/22 amiodarone 200 mg tablet 200 mg PO BID #0 tabs 12/18/22 apixaban 5 mg tablet (Eliquis) 2.5 mg (1/2 x 5 mg) PO BID #0 tabs 12/18/22 furosemide 20 mg tablet 20 mg PO BIDLX #0 tabs 12/18/22 melatonin 10 mg sublingual tablet 10 mg PO QHS #0 tabs 12/18/22 Physical Exam Narrative GENERAL: cooperative HEENT: Atraumatic; normocephalic EYES; Anicteric, Normal Conjunctiva NECK; supple, normal thyroid, RESPIRATORY: Diminished to auscultation CARDIOVASCULAR: Irregularly irregular, tachycardic GI: soft, normoactive bowel sounds, : No Renal angle tenderness; EXTREMITIES: edema, no clubbing, MUSCULOSKELETAL: no muscle wasting NEURO: Awake; no lateralizing signs. SKIN: No Rash PSYCH; Flat affect Weight / BMI Weight Weight: 89 kg Body Mass Index (BMI) 29.8 ABG / Lab / Microbiology Data 12/19/22 07:22 12/19/22 07:22 Meaningful Use Info Meaningful Use Diagnoses (Choose all that apply): CHF CHF ARACELI/ARB ordered at discharge?: Yes Reason ARACELI/ARB not ordered?: Hypotension Documented LVEF (%): 45 Discharge Plan Admission Admit Date/Time: 12/14/22 23:02 Attending Provider: Prashanth Lee Primary Care Provider: George Silver Consulting Providers: Chandra Tan; Mark Ramirez; Coral Ahumada Discharge Orders/Prescriptions Prescriptions: New acetaminophen 325 mg Tablet 650 mg PO Q4H PRN PRN (Reason: Pain Score 1-10) Qty: 0 0RF amiodarone 200 mg Tablet 200 mg PO BID Qty: 0 0RF Rx Instructions: 200 mg p.o. twice daily for 2 weeks then 200 mg daily furosemide 20 mg Tablet 20 mg PO BIDLX Qty: 0 0RF Eliquis 5 mg Tablet 2.5 mg PO BID Qty: 0 0RF melatonin 10 mg Tablet, Sublingual 10 mg PO QHS Qty: 0 0RF Continued pravastatin 20 mg tablet 20 mg PO QHS Discontinued amlodipine 5 mg tablet 5 mg PO DAILY lisinopril 10 mg tablet 10 mg PO DAILY furosemide [Lasix] 20 mg tablet 20 mg PO SUTUTHSA furosemide [Lasix] 40 mg tablet 40 mg PO MOWEFR Referrals / Follow Up: Mark Ramirez MD [Med Staff - Active Staff] - Within 1 Month George Silver DO [Primary Care Provider] - Within 2 Weeks Disposition Disposition (needs filled in before D/C Order can be placed[facility] Charges/Coding Visit Charges Inpatient E&M: 95250 Disch Hosp >30min
[2022-12-19 07:53] LABS: Absolute Lymphocyte Count 1.14 X10^3/uL (0.83-4.51); Absolute Neutrophil Count 13.3 X10^3/uL (2.0-7.7); Basophil# 0.05 X10^3/uL; Basophil% 0.3 % (0-1); Eosinophil# 0.51 X10^3/uL; Eosinophils% 3.1 % (0-5); Hematocrit 31.5 % (40-54); Hemoglobin 10.9 g/dL (13.0-16.5); Lymphocyte # 1.14 X10^3/ul (0.83-4.51); Lymphocyte % 6.8 % (19-41); Mean Corp Hgb Conc 34.6 g/dL (32-36); Mean Corpuscular Hgb 31.5 pg (27.0-32.0); Mean Platelet Vol. 9.9 fl (6.2-12.0); Monocyte# 1.38 X10^3/uL; Monocyte% 8.3 % (0-10); NRBC Flagged by Analyzer 0 % (0-5); Neutrophil # 13.32 X10^3/uL (2.7-7.7); Neutrophil % 79.9 % (47-70); Platelet Count 307 K/mm3 (150-450); RBC Distribution Width CV 14.2 % (11.6-14.6); Red Blood Count 3.46 M/mm3 (4.6-6.2); White Blood Count 16.7 K/mm3 (4.4-11.0)
[2022-12-19] MEDS: Furosemide 20 MG Tablet PO (08:15)
[2022-12-19] MEDS: Amiodarone 200 MG Tablet PO (08:15)
[2022-12-19] MEDS: APIXABAN 2.5 MG TABLET (WCH) PO (08:15)
[2022-12-19 08:28] LABS: Anion Gap 6 (5-15); BUN 44 mg/dL (7-18); BUN/Creat Ratio 32.6 RATIO (10-20); Calcium,Total 8.7 mg/dL (8.5-10.1); Chloride 105 mmol/L (98-107); Creatinine, Serum 1.35 mg/dL (0.70-1.30); EST Glomerular Filtration Rate 53 mL/min (>60); Est Glom Filt Rate - Afr Amer 64 mL/min (>60); Estimated Creatinine Clearance 36.59 ml/min; Glucose 139 mg/dL (74-106); Potassium 3.8 mmol/L (3.5-5.1); Sodium Level 136 mmol/L (136-145)
--- NOTE | 2022-12-19 08:32 | NURSING ---
I spoke with Delmy the pt's daughter to inform her that the pt will be d/c to TCU this morning.
[2022-12-19 09:05] VITALS: BP 119/67; PULSE 100; RESP 20; TEMP 36.7; O2SAT 98
[2022-12-19 09:54] VITALS: O2SAT 98
--- NOTE | 2022-12-19 10:10 | NURSING ---
report given to nurse Escoto on TCU. Will take over care of pt
== END 2022-12-19 11:30 | disposition skilled nursing facility (03) | DRG 291 ==
LOC: ED 22:57 → ICU 12-15 00:15 → PCU 12-18 13:21
PROVIDERS: Internal Medicine Nephrology; Admitting Provider Family Medicine; Emergency Provider Emergency Medicine; PCP Family Medicine; Visit Provider Internal Medicine
DX: I13.0 Hypertensive heart and chronic kidney disease with heart failure and stage 1 through stage 4 chronic kidney disease, or unspecified chronic kidney disease (principal); J96.01 Acute respiratory failure with hypoxia; I50.21 Acute systolic (congestive) heart failure; N17.9 Acute kidney failure, unspecified; I24.8 Other forms of acute ischemic heart disease; J81.1 Chronic pulmonary edema; I48.0 Paroxysmal atrial fibrillation; N18.30 Chronic kidney disease, stage 3 unspecified; E78.00 Pure hypercholesterolemia, unspecified; R77.8 Other specified abnormalities of plasma proteins
CPT/HCPCS: 36415; 71045; 80048; 80053; 81001; 83735; 83880; 84100; 84484; 85025; 85027; 85610; 85730; 93005; 93306; 94002; 94003; 94640; 94762; 97110; 97162; 97166; 97530; 97535; 97802; 99285; J7050; Q9957; A4216; C8929; J1940

== ENCOUNTER 2022-12-19 11:40 | Inpatient (IN) | payer MEDICARE, SELFPAY ==
[2022-12-19 12:40] VITALS: BP 120/52; PULSE 84; RESP 20; TEMP 37; O2SAT 94; BMI 27.3
--- NOTE | 2022-12-19 13:16 | PCM.HP.STD ---
HPI - General General Date of Admission: 12/19/22 Date of Service: 12/21/22 Chief Complaint: Here for rehabilitation. HPI Narrative 12/14/2022 NAEEM GIBSON, is a 87 Male who presents to [facility] Emergency Department with chest pain, shortness of breath. 12/14/2022 EKG atrial fibrillation, septal infarct, age undetermined. Severe shortness of breath starting this AM, short of breath for some time. Pulmonary edema, atrial fibrillation with rapid ventricular response. WBC 30,000, Troponin 12,229, BNP 2263. Chest X-ray showed pulmonary edema. BiPAP, Lasix 80mg iv, Morphine 4mg iv, nitropaste for acute respiratory failure with hypoxia, NSTEMI, CHF. Cardizem 20mg iv for atrial fibrillation with RVR. Dr. Ramirez recommended heparin drip. 12/14/2022 Admit to Hospital ICU. BiPAP for acute respiratory failure with hypoxia. Lasix 20mg iv bid for congestive heart failure. Atrial fibrillation with RVR converted to sinus rhythm. 12/15/2022 Echo Normal LV size. Mild to moderate global LV systolic dysfunction. EF 45%. Stage 3 diastolic dysfunction. PASP 32mm HG. 12/15/2022 NSTEMI secondary to demand ischemia from atrial fibrillation with RVR. Cardizem drip, Heparin drip for recurrent atrial fibrillation with RVR. Continue BiPAP for acute respiratory failure with hypoxia. 12/16/2022 Generalized weakness. Heparin changed to Eliquis. Supplemental oxygen. PT/OT for discharge planning. 12/17/2022 IV fluid resuscitation for hypotension, diuretics adjusted. 12/18/2022 Improved. Blood pressure stable after stopping Metoprolol, holding Lasix. Dr. Ramirez recommended amiodarone for atrial fibrillation. Acute kidney injury improved with holding Lasix. 12/19/2022 Admit to TCU with debility, here for rehabilitation, strengthening, prior to discharge home alone. [facility] Medical History (Updated 12/19/22 @ 13:[address] Obed Stallings MD) HTN (hypertension) Hypercholesteremia Home Medications pravastatin 20 mg tablet 20 mg PO QHS cholesterol 12/14/22 [History Last Taken 12/18/22] acetaminophen 325 mg tablet 650 mg (2 x 325 mg) PO Q4H PRN PRN Pain Score 1-10 #0 tabs 12/18/22 [Rx Last Taken 12/16/22] amiodarone 200 mg tablet 200 mg PO BID afib #0 tabs 12/18/22 [Rx Last Taken 12/19/22] apixaban 5 mg tablet (Eliquis) 2.5 mg (1/2 x 5 mg) PO BID blood thinner #0 tabs 12/18/22 [Rx Last Taken 12/19/22] furosemide 20 mg tablet 20 mg PO BIDLX water pill #0 tabs 12/18/22 [Rx Last Taken 12/19/22] melatonin 10 mg sublingual tablet 10 mg PO QHS sleep aid #0 tabs 12/18/22 [Rx Last Taken 12/18/22] Allergy/AdvReac Type Severity Reaction Status Date / Time No Known Drug Allergies Allergy Mild none Verified 12/14/22 23:24 Surgical History History of appendectomy Social History (Updated 12/19/22 @ 13:[address] Obed Stallings MD) household members: none Smoking Status: Never smoker alcohol intake: never substance use type: does not use ROS Constitutional Constitutional: Denies chills, fever(s) or weight gain ENT HEENT: Denies headache(s), nasal congestion or nasal discharge Cardiovascular Cardiovascular: Denies chest pain or palpitations Respiratory/Chest Respiratory/Chest: Denies cough, excessive phlegm production or shortness of breath with exertion Gastrointestinal Gastrointestinal: Denies abdominal pain, nausea or vomiting Genitourinary Genitourinary: Denies dysuria Musculoskeletal Musculoskeletal: Denies joint pain or joint swelling Integumentary Integumentary: Denies rash or wounds Neurologic Neurologic: Denies focal weakness, numbness or tingling Psychiatric Psychiatric: Denies anxiety, auditory hallucinations, depression, homicidal ideation or suicidal ideation Vital Signs Vital Signs Vital Signs: 12/19/22 12:40 Temperature 98.6 F Temperature Source Temporal Pulse Rate 84 Respiratory Rate 20 H Blood Pressure 120/52 L Blood Pressure Mean 74 Blood Pressure Source Monitor Blood Pressure Position Sitting Blood Pressure Location Right Arm Pulse Ox 94 Oxygen Delivery Method Room Air Weight Weight: 88.995 kg Body Mass Index (BMI) 27.3 Physical Exam Const alert General Appearance: cooperative HEENT normocephalic Eyes PERRL and EOMs intact bilaterally Neck supple, no JVD and no carotid bruits Resp normal respiratory effort and normal air movement Auscultation: wheezes expiratory wheezes and upper bilaterally Cardio regular rate and regular rhythm GI normal to inspection, nondistended, normoactive bowel sounds, non-tender and non-distended Extremity normal capillary refill Extremity Narrative: Erythema, tenderness bilateral lower extremity, right worse than right. General Extremity: Negative for edema Skin no rashes or lesions noted General Skin Exam: no breakdown Psych affect normal Appearance: appropriate Results Lab / Micro Data 12/20/22 06:50 12/20/22 06:50 Assessment & Plan Assessment/Plan (1) Debility: (2) Acute respiratory failure with hypoxia: (3) Acute heart failure with reduced ejection fraction and diastolic dysfunction: (4) NSTEMI (non-ST elevated myocardial infarction): (5) Atrial fibrillation with RVR: (6) HTN (hypertension): (7) Hyperlipidemia: PLAN: Plan 87 year old male with below past medical history hospitalized for acute respiratory failure secondary to acute heart failure with reduced ejection fraction, pulmonary edema, complicated by NSTEMI, new onset atrial fibrillation with RVR, admitted to TCU with debility, here for rehabilitation, strengthening, prior to discharge home alone. Debility - PT/OT. Pain - Tylenol 1000mg q6h prn pain (1-10). Bowel - senna/colace 1 tablet bid, Magnesium Citrate 300ml po daily prn. Adult immunization - Administer pneumonia vaccine, covid19 vaccine, flu vaccine. DVT prophylaxis - on Eliquis. Atrial fibrillation - Metoprolol intolerable, on Amiodarone 200mg bid thru 01/02/2023, then 200mg daily, Eliquis 2.5mg bid. Acute heart failure reduced ejection fraction - Furosemide 20mg bidlx. Insomnia - Melatonin 10mg qhs. Hyperlipidemia Pravastatin 20mg qhs. Wheezing - Prednisone 10mg daily x days, Duoneb 3ml q6h prn wheezing. Cellulitis of legs - Keflex 500mg bid, Doxycycline 100mg bid x 7 days. Onychomycosis - Consult Podiatry.
[2022-12-19 14:40] VITALS: RESP 20
[2022-12-19] MEDS: Furosemide 20 MG Tablet PO (15:39)
[2022-12-19] MEDS: Senna/Docusate Sodium 1 Tablet PO (17:58)
[2022-12-19] MEDS: APIXABAN 2.5 MG TABLET (WCH) PO (17:58)
[2022-12-19] MEDS: Amiodarone 200 MG Tablet PO (17:58)
--- NOTE | 2022-12-19 20:05 | NURSING ---
Pt completing an unassisted transfer upon this nurse entering bathroom after call alcaraz alarms. A male visitor is exiting the bathroom with pt. Two female visitors present in room. One female visitor states, He doesn't like to wait. Instructed pt and visitors that pt cannot complete unassisted transfers until approved per therapy. Pt dyspneic w/ ambulation using front wheeled walker. Gait slightly unsteady. In no acute distress. SpO2 93% on room air. Call light w/ in reach. Will continue to monitor.
[2022-12-19] MEDS: Pravastatin 20 MG Tablet PO (21:32)
[2022-12-19] MEDS: MELATONIN 10 MG TABLET PO (21:32)
[2022-12-20] MEDS: Senna/Docusate Sodium 1 Tablet PO ×2 (05:26→18:25)
[2022-12-20] MEDS: Furosemide 20 MG Tablet PO ×2 (05:26→14:14)
[2022-12-20] MEDS: APIXABAN 2.5 MG TABLET (WCH) PO ×2 (05:26→18:25)
[2022-12-20] MEDS: 0.9% Saline Lock 10 ML Syringe IV (05:27)
[2022-12-20 05:41] VITALS: BP 121/61; PULSE 85
[2022-12-20 07:04] LABS: Absolute Lymphocyte Count 1.45 X10^3/uL (0.83-4.51); Absolute Neutrophil Count 12.4 X10^3/uL (2.0-7.7); Basophil# 0.05 X10^3/uL; Basophil% 0.3 % (0-1); Eosinophil# 0.57 X10^3/uL; Eosinophils% 3.5 % (0-5); Hematocrit 32.2 % (40-54); Hemoglobin 10.6 g/dL (13.0-16.5); Lymphocyte # 1.45 X10^3/ul (0.83-4.51); Lymphocyte % 8.9 % (19-41); Mean Corp Hgb Conc 32.9 g/dL (32-36); Mean Corpuscular Hgb 30.5 pg (27.0-32.0); Mean Corpuscular Volume 92.8 fL (80-94); Mean Platelet Vol. 9.5 fl (6.2-12.0); Monocyte# 1.46 X10^3/uL; NRBC Flagged by Analyzer 0 % (0-5); Neutrophil # 12.39 X10^3/uL (2.7-7.7); Neutrophil % 76.5 % (47-70); Platelet Count 327 K/mm3 (150-450); RBC Distribution Width CV 14.4 % (11.6-14.6); RBC Distribution Width SD 47.9 fl (35.1-43.9); Red Blood Count 3.47 M/mm3 (4.6-6.2); White Blood Count 16.2 K/mm3 (4.4-11.0)
[2022-12-20 07:45] LABS: Anion Gap 7 (5-15); BUN 38 mg/dL (7-18); Calcium,Total 8.5 mg/dL (8.5-10.1); Chloride 103 mmol/L (98-107); Creatinine, Serum 1.41 mg/dL (0.70-1.30); EST Glomerular Filtration Rate 50 mL/min (>60); Est Glom Filt Rate - Afr Amer 61 mL/min (>60); Estimated Creatinine Clearance 38.57 ml/min; Glucose 133 mg/dL (74-106); Potassium 3.6 mmol/L (3.5-5.1); Sodium Level 136 mmol/L (136-145)
[2022-12-20] MEDS: Petrolatum 33% Tube 1 APPLIC TOPICAL (08:25)
[2022-12-20] MEDS: Amiodarone 200 MG Tablet PO ×2 (08:26→18:25)
[2022-12-20] MEDS: Tuberculin,Purif.prot.deriv. 50 TU/ML Vial 0.1 ML ID (10:04)
[2022-12-20 14:09] VITALS: BP 127/60; PULSE 97; RESP 20; TEMP 36.2; O2SAT 96
[2022-12-20] MEDS: MELATONIN 10 MG TABLET PO (22:13)
[2022-12-20] MEDS: Pravastatin 20 MG Tablet PO (22:13)
[2022-12-20 22:30] VITALS: O2SAT 95
[2022-12-21 04:56] VITALS: BMI 27.3
[2022-12-21] MEDS: Furosemide 20 MG Tablet PO ×2 (05:35→14:06)
[2022-12-21] MEDS: Senna/Docusate Sodium 1 Tablet PO ×2 (05:35→17:21)
[2022-12-21] MEDS: APIXABAN 2.5 MG TABLET (WCH) PO ×2 (05:35→17:20)
[2022-12-21] MEDS: Petrolatum 33% Tube 1 APPLIC TOPICAL (05:36)
[2022-12-21] MEDS: Doxycycline 100 MG CAPSULE PO ×2 (08:26→17:20)
[2022-12-21] MEDS: predniSONE 10 MG Tablet PO (08:26)
[2022-12-21] MEDS: Cephalexin 500 MG Capsule PO ×2 (08:26→17:21)
[2022-12-21] MEDS: Acetaminophen 500 MG Tablet 1000 MG PO (08:26)
[2022-12-21] MEDS: Amiodarone 200 MG Tablet PO ×2 (08:28→17:20)
--- NOTE | 2022-12-21 09:17 | NS ---
Written copy of daily specials/first choice menu to res w/ instructions on how to order. Food dislike: chicken noodle soup. MST score = 1 - low risk of malnutrition at this time.
--- NOTE | 2022-12-21 09:40 | PHA.CONS_ITS ---
Documented by User: Amanda Bledsoe 12/21/22 10:15 TCU RX Drug Regimen Review Subjective/Objective Subjective/Objective: Subjective: TCU Admission. 87 YOM presented to the ER with chest pain and shortness of breath. Hospitalized for acute respiratory failure secondary to ac jose manuel heart failure with reduced ejection fraction, pulmonary edema, complicated by NSTEMI, new onset atrial fibrillation with RVR. Admitted to TCU with debility for strengthening and rehabilitation. Objective: Allergies No Known Drug Allergies Allergy (Mild, Verified 12/14/22 23:24) none Current Medications Generic Name Dose Route Start Last Admin Trade Name Freq PRN Reason Stop Dose Admin Acetaminophen 1,000 mg 12/19/22 13:33 12/21/22 08:26 Acetaminophen 500 Mg Tablet PO 1,000 mg Q6H PRN PRN Administration Pain Score 1-10 Albuterol/Ipratropium 3 ml 12/21/22 07:26 Ipratropium/Albuterol Sulfate 3 Ml Ampul.Neb INHALATION Q6HWA.RT PRN SOB &/OR WHEEZING Amiodarone HCl 200 mg 01/03/23 06:00 Amiodarone 200 Mg Tablet PO DAILY ZAINAB Amiodarone HCl 200 mg 12/20/22 08:00 12/21/22 08:28 Amiodarone 200 Mg Tablet PO 01/02/23 18:01 200 mg BID@0800,1800 ZAINAB Administration Apixaban 2.5 mg 12/19/22 18:00 12/21/22 05:35 Apixaban 2.5 Mg Tablet (Wch) PO 2.5 mg BID ZAINAB Administration Calamine/Phenol 1 applic 12/21/22 08:05 Menthol/Lanolin/Calamine/Znox 113 Gm Tube TOPICAL BID [facility] Protocol Cephalexin 500 mg 12/21/22 07:30 12/21/22 08:26 Cephalexin 500 Mg Capsule PO 12/28/22 07:31 500 mg Q12 ZAINAB Administration Doxycycline Monohydrate 100 mg 12/21/22 07:30 12/21/22 08:26 Doxycycline 100 Mg Capsule PO 12/28/22 07:31 100 mg BID ZAINAB Administration Furosemide 20 mg 12/19/22 14:00 12/21/22 05:35 Furosemide 20 Mg Tablet PO 20 mg BIDLX ZAINAB Administration Magnesium Citrate 300 ml 12/19/22 13:32 Magnesium Citrate 300 Ml PO DAILY PRN Constipation Melatonin 10 mg 12/19/22 22:00 12/20/22 22:13 Melatonin 10 Mg Tablet PO 10 mg QHS ZAINAB Administration Multi-Ingredient Cream 1 applic 12/20/22 06:00 12/21/22 05:36 Petrolatum 33% Tube TOPICAL 1 applic DAILY ZAINAB Administration Protocol Pravastatin Sodium 20 mg 12/19/22 22:00 12/20/22 22:13 Pravastatin 20 Mg Tablet PO 20 mg QHS ZAINAB Administration Prednisone 10 mg 12/21/22 07:30 12/21/22 08:26 Prednisone 10 Mg Tablet PO 12/26/22 08:01 10 mg DAILYCM ZAINAB Administration Senna/Docusate Sodium 1 tablet 12/19/22 18:00 12/21/22 05:35 Senna/Docusate Sodium 1 Tablet PO 1 tablet BID ZAINAB Administration Sodium Chloride 10 - 40 ml 12/19/22 15:11 12/20/22 05:27 0.9% Saline Lock 10 Ml Syringe IV 10 ml UD PRN Administration SALINE FLUSH Tuberculin PPD 0.1 ml 12/27/22 10:00 Tuberculin,Purif.Prot.Deriv. 50 Tu/Ml Vial ID 12/27/22 10:01 X1 ONE Problem List (Updated 12/19/22 @ 13:[address] Obed Stallings MD) Hyperlipidemia (Acute) HTN (hypertension) (Chronic) NSTEMI (non-ST elevated myocardial infarction) (Acute) Acute heart failure with reduced ejection fraction and diastolic dysfunction (Acute) Acute respiratory failure with hypoxia (Acute) Debility (Acute) Atrial fibrillation with RVR (Acute) Vital Signs Temp Pulse Resp BP Pulse Ox O2 Del Method 97.1 F L 97 20 H 127/60 H 95 Room Air 12/20/22 14:09 12/20/22 14:09 12/20/22 14:09 12/20/22 14:09 12/20/22 22:30 12/21/22 09:31 Oxygen Delivery Method Room Air Weight: 88.904 kg Body Mass Index (BMI) 27.3 Sodium 136 mmol/L (136-145) 12/20/22 06:50 Potassium 3.6 mmol/L (3.5-5.1) 12/20/22 06:50 Chloride 103 mmol/L (98-107) 12/20/22 06:50 Carbon Dioxide 26.0 mmol/L (21.0-32.0) 12/20/22 06:50 Anion Gap 7 (5-15) 12/20/22 06:50 BUN 38 mg/dL (7-18) H 12/20/22 06:50 Creatinine 1.41 mg/dL (0.70-1.30) H 12/20/22 06:50 Est GFR (MDRD) Af Amer 61 mL/min (>60) 12/20/22 06:50 Est GFR (MDRD) Non-Af 50 mL/min (>60) L 12/20/22 06:50 BUN/Creatinine Ratio 27.0 RATIO (10-20) H 12/20/22 06:50 Glucose 133 mg/dL (74-106) H 12/20/22 06:50 Assessment/Plan: 1. Pain: acetaminophen 1000mg PO Q6H PRN pain 1-10. Resident has had 1 dose so far for a pain score of 6 in the legs. Please continue to monitor for increased pain and PRN usage. 2. Bowel: senna/docusate 1T PO BID and magnesium citrate 300mL PO daily PRN constipation. Resident has not had any PRN doses. Last documented bowel movement 12/19/22. Please continue to monitor for constipation and PRN usage. 3. Atrial fibrillation/CHF: amiodarone 200mg PO BID thru 01/02/23 then 200mg daily thereafter, apixaban 2.5mg PO BID and furosemide 20mg PO BIDLX. Please continue to monitor BP (last 127/60), HR (last 97), potassium (last 3.6mmol/L), sodium (last 136mmol/L), S/S of bleeding, hemoglobin (last 10.6g/dL), renal function (apixaban 2.5mg likely okay as resident's SCr has ranged from 2.49mg/dL - 1.35mg/dL with last SCr being 1.41mg/dL. If SCr consistently stays below 1.5mg/dL, would be appropriate for 5mg dose.) 4. Cellulitis of legs: cephalexin 500mg PO Q12 thru 12/28/22 and doxycycline 100mg PO BID thru 12/28/22. Please continue to monitor for S/S of infection, diarrhea and renal function. 5. Wheezing: prednisone 10mg PO DAILYCM 12/26/22 and Duoneb 3mL inhalation Q6HWA.RT PRN SOB/wheezing. Resident has not had any PRN doses. Please continue to monitor for S/S of SOB, wheezing, increased hunger, glucose (last 133mg/dL), agitation and upset stomach. 6. Hyperlipidemia: pravastatin 20mg PO QHS. Please consider ordering a lipid panel as there is not panel in the chart. Thanks. Please continue to monitor for S/S of mucle pain and LFTs (last 12/16/22). 7. Insomnia: melatonin 10mg PO QHS. Please continue to monitor for excessive drowsiness. Assessment/Plan for indications treated with psychotropic medications: None Medical chart and medication regimen reviewed. The following medication irregularities or issues were identified: *1. Pravastatin 20mg PO QHS. Please consider ordering a lipid panel as there is not panel in the chart. Thanks. Documented by User: Dr. Obed Stallings MD 12/21/22 09:47 TCU RX Drug Regimen Review Date Date of Note:: 12/21/22 Provider Comments Provider responsibility Provider Comments to Recommendations by Pharmacy: Agree
--- NOTE | 2022-12-21 11:17 | WOUNDNOTE ---
skin photo: bilateral lower legs
--- NOTE | 2022-12-21 11:18 | WOUNDNOTE ---
skin photo: right medial heel
--- NOTE | 2022-12-21 11:46 | NURSING ---
Caustic Room Attendant Note; Activity Asset: Natasha Matos is independent in his choice of daily activities. He stated he would prefer to read, watch and read the news and visit w/his family and friends. He welcomes visit from the coating mixer and his workforce staffing advisor will visit as well. Family will be her daily with him and bring items from home that he may need. Staff will remind him of daily activities and respect his right to say no.
--- NOTE | 2022-12-21 12:24 | NURSING ---
Offered Covid vaccine to patient. He and family member in room, education on vaccine provided. Patient refuses at this time.
--- NOTE | 2022-12-21 12:27 | CASEMGMT ---
Social Work Met with patient to complete initial assessment. Introduced self and role. Dtr present at bedside and pt gave permission for dtr to be present for assessment. Discussed code status and MOLST form. Pt confirmed DNR-CCA, no intubation. MOLST placed in Dr folder. Pt requesting to complete advanced directives during stay. SW requested contact information for children. SW verified/updated contacts. SW to complete AD prior to DC. Educated to Medicare benefit. Pt does not have secondary insurance. Educated to $200/day copay days 21-100. Pt's goal is to return home alone but with children's support. SW will continue to follow for DC planning. Nyla Quintanilla, AYDEN FINGERNAIL SCULPTOR
[2022-12-21 13:40] VITALS: BP 124/58; PULSE 90; RESP 18; TEMP 36.8; O2SAT 96
[2022-12-21] MEDS: Menthol/Lanolin/Calamine/Znox 113 GM Tube 1 APPLIC TOPICAL ×2 (14:06→17:20)
[2022-12-21] MEDS: Pravastatin 20 MG Tablet PO (21:17)
[2022-12-21] MEDS: MELATONIN 10 MG TABLET PO (21:17)
[2022-12-22 05:20] VITALS: BMI 27.2
[2022-12-22] MEDS: APIXABAN 2.5 MG TABLET (WCH) PO ×2 (06:03→18:13)
[2022-12-22] MEDS: Furosemide 20 MG Tablet PO ×2 (06:03→13:16)
[2022-12-22] MEDS: Cephalexin 500 MG Capsule PO ×2 (06:03→18:13)
[2022-12-22] MEDS: Doxycycline 100 MG CAPSULE PO ×2 (06:03→18:13)
[2022-12-22] MEDS: Senna/Docusate Sodium 1 Tablet PO (06:03)
[2022-12-22] MEDS: Acetaminophen 500 MG Tablet 1000 MG PO ×2 (06:03→12:11)
[2022-12-22] MEDS: Menthol/Lanolin/Calamine/Znox 113 GM Tube 1 APPLIC TOPICAL ×2 (06:07→20:59)
[2022-12-22] MEDS: Petrolatum 33% Tube 1 APPLIC TOPICAL (06:10)
[2022-12-22] MEDS: predniSONE 10 MG Tablet PO (08:13)
[2022-12-22] MEDS: Amiodarone 200 MG Tablet PO ×2 (08:13→18:13)
--- NOTE | 2022-12-22 09:40 | WOUNDNOTE ---
In to reassess bilateral lower legs and feet. redness and edema are improved again today. patient states there is less pain noted in the right leg today. will continue to monitor.
[2022-12-22 10:00] VITALS: PULSE 83; O2SAT 95
[2022-12-22 13:14] VITALS: BP 123/56; PULSE 82; RESP 18; TEMP 36.4; O2SAT 93
--- NOTE | 2022-12-22 19:13 | CON.PCM_ITS ---
Assessment & Plan Assessment/Plan (1) Tinea unguium: (2) Nail dystrophy: (3) Cellulitis of right lower limb: PLAN: Plan Evaluation performed. Reviewed findings with patient and his daughter who was present. Debrided toenails 1-5 bilateral using a nail nipper. Bandaid applied to left 4th toe for small microbleed, ok to remove tomorrow. Reviewed proper foot care. They declined topical ciclopirox for onychomycosis. Patient is being treated for LE cellulitis which appears to be improving with antibiotic therapy. Reviewed elevation and compression therapy - he is using armond bandages for compression therapy. HPI Consult Data Date of Consult: 12/22/22 HPI Narrative Reason for Consultation: Onychomycosis of toenails HPI Narrative: NAEEM GIBSON, is a 87 M who presents for long, thickened, hard to reduced toenails on both feet. He is in TCU, sitting in chair at this time. His daughter is present. She relates patient does not let anyone tend to his feet. She also relates he sits down at home most of the day with feet down (ie not elevated). He is also being treated for lower extremity cellulitis with antibiotic therapy, and that has been improving. He has no other complaints and is ready to eat dinner at this time. ON LICENSE OF [facility] Medical History (Updated 12/22/22 @ 19:[address] Rufino Leavitt, ARNOL) HTN (hypertension) Hypercholesteremia Home Medications pravastatin 20 mg tablet 20 mg PO QHS cholesterol 12/14/22 [History Last Taken 12/18/22] acetaminophen 325 mg tablet 650 mg (2 x 325 mg) PO Q4H PRN PRN Pain Score 1-10 #0 tabs 12/18/22 [Rx Last Taken 12/16/22] amiodarone 200 mg tablet 200 mg PO BID afib #0 tabs 12/18/22 [Rx Last Taken 12/19/22] apixaban 5 mg tablet (Eliquis) 2.5 mg (1/2 x 5 mg) PO BID blood thinner #0 tabs 12/18/22 [Rx Last Taken 12/19/22] furosemide 20 mg tablet 20 mg PO BIDLX water pill #0 tabs 12/18/22 [Rx Last Taken 12/19/22] melatonin 10 mg sublingual tablet 10 mg PO QHS sleep aid #0 tabs 12/18/22 [Rx Last Taken 12/18/22] Allergy/AdvReac Type Severity Reaction Status Date / Time No Known Drug Allergies Allergy Mild none Verified 12/14/22 23:24 Surgical History History of appendectomy Social History (Updated 12/19/22 @ 13:[address] Obed Stallings MD) household members: none Smoking Status: Never smoker alcohol intake: never substance use type: does not use Physical Exam Narrative Bilateral 1-5 toenails are elongated, thickened, dystrophic, yellow, crumbly, incurvated with subungual debris. There is diffuse LE edema bilateral - chronic appearing, there are no ulcerations, no fluctuance, no crepitus, no necrosis to the foot, ankle or leg noted. CFT < 2 seconds bilateral foot to all toes, normal temperature with no evidence of acute ischemia bilateral foot. No m/s POP or pain on ROM to the foot or ankle bilateral. There is limited ROM to the joints of the foot/ankle bilateral c/w osteoarthritis. Const alert, oriented x3 and no apparent distress Lab / Micro Data 12/20/22 06:50 12/20/22 06:50
[2022-12-22] MEDS: MELATONIN 10 MG TABLET PO (20:58)
[2022-12-22] MEDS: Pravastatin 20 MG Tablet PO (20:59)
[2022-12-23 04:57] VITALS: BMI 27.3
[2022-12-23 06:02] VITALS: BP 128/66; PULSE 78
[2022-12-23] MEDS: Cephalexin 500 MG Capsule PO ×2 (06:16→17:20)
[2022-12-23] MEDS: APIXABAN 2.5 MG TABLET (WCH) PO ×2 (06:16→17:20)
[2022-12-23] MEDS: Furosemide 20 MG Tablet PO ×2 (06:16→13:40)
[2022-12-23] MEDS: Doxycycline 100 MG CAPSULE PO ×2 (06:16→17:20)
[2022-12-23] MEDS: Menthol/Lanolin/Calamine/Znox 113 GM Tube 1 APPLIC TOPICAL ×2 (06:17→17:22)
[2022-12-23] MEDS: Petrolatum 33% Tube 1 APPLIC TOPICAL (06:18)
[2022-12-23] MEDS: Amiodarone 200 MG Tablet PO ×2 (08:10→17:20)
[2022-12-23] MEDS: predniSONE 10 MG Tablet PO (08:11)
--- NOTE | 2022-12-23 08:54 | CASEMGMT ---
Social Work IDT met with patient and family for care plan meeting. Discussed patient's progress in PT/OT/SN. Educated to Medicare benefit. Pt and family reporting pt progressing well and doing better than when he was good at home. Pt requesting to DC home. Extended time discussing recommendations for continued stay from IDT and offered family training. Family stated someone will be with pt at home throughout the day initially. Offered for family to see OT session today and assist in making determination for DC home. All in agreement. -- Dtr presented to this worker's office and requesting pt DC home 12/26. SW offered skilled HHC. Dtr stated pt is cognizant of cost as pt has Medicare part A only and [employer]. SW educated to [facility] that accepts [employer], and after cost is discussed, pt can make decision. Dtr agreeable. No DME needs. family to transport. PLAN: DC home with family 12/26, [facility] PT/OT AYDEN FinneganW
--- NOTE | 2022-12-23 13:27 | CHAPLAIN ---
Type of Pastoral Visit _x__ Initial Visit ___ Follow-up Visit ___ On-call Visit ___ General Patient Visit ___ Spiritual Assessment ___ Family Conference ___ Bereavement ___ Rapid Response ___ Code Blue ___ Other (describe below) Pastoral Care Referral From _x__ Patient ___ Family ___ Nurse ___ Physician _x__ Plastic And Reconstructive Surgeon ___ Rv Repairer ___ Other (describe below) Sacrament/Intervention _x__ Active listening ___ Anointing ___ Anglican ___ Bereavement ___ Communion _x__ [place] exploration ___ _x__ Life review _x__ Prayer ___ Reconciliation ___ Sacrament of Sick _x__ Supportive presence ___ Wedding ___ Other (describe below) Pastoral Comments patient was working on a word search puzzle and welcomes this control systems drafting officer when he understood the visit was for spiritual care support; pt identifies self as a member of the [employer] community which is a break away from [employer]; pt states that he has wonderful support and many prayers from his [place] community and from his immediate family; pt also states that his neighbors are good to his family as well; pt speaks of living to be 87 and if he goes home better or if he dies that it is the will of God and I will accept it; pt states his goal as to make improvements so he is not a burden to his family; pt welcomes prayers for support; pt states no other needs or concerns
[2022-12-23 14:59] VITALS: BP 120/66; PULSE 78; RESP 18; TEMP 36.3; O2SAT 96
--- NOTE | 2022-12-23 15:50 | CASEMGMT ---
Social Work SW completed advanced directives with pt. Original and copy provided to pt. Copies placed on chart. Nyla Quintanilla, MACHINE TRY OUT SETTER UNIVERSITY ADMINISTRATOR
--- NOTE | 2022-12-23 19:37 | DS.PCM_ITS ---
Providers Date of Admission: 12/19/22 Primary Care Physician: Dr. George Silver, Consultations 12/19/22 16:11 Consult: Onc/Wound/toppiece cutter Routine Comment: Reason for Consult:: lower ext stasis ulcers 12/21/22 07:26 Consult: Podiatry Routine Consulting Provider: Rufino Leavitt Reason for Consult: Onychomycosis, toenail care. EMERGENT Consult: No MD Notified: Yes Date Notified: 12/21/22 Time Notified: 10:51 Method of Notification: Verbal Reason For Visit: RESPIRATORY FAILURE AND CHF Diagnosis Discharge Diagnosis (1) Tinea unguium: Status: Acute Code(s): B35.1 - Tinea unguium (2) Nail dystrophy: Status: Acute Code(s): L60.3 - Nail dystrophy (3) Cellulitis of right lower limb: Status: Acute Code(s): L03.115 - Cellulitis of right lower limb Plan 87 year old male with below past medical history hospitalized for acute respiratory failure secondary to acute heart failure with reduced ejection fr action, pulmonary edema, complicated by NSTEMI, new onset atrial fibrillation with RVR, admitted to TCU with debility, here for rehabilitation, strengthening, prior to discharge home alone. * Debility - PT/OT. * Pain - Tylenol 1000mg q6h prn pain (1-10). * Bowel - senna/colace 1 tablet bid, Magnesium Citrate 300ml po daily prn. * Adult immunization - Administer pneumonia vaccine, covid19 vaccine, flu vaccine. * DVT prophylaxis - on Eliquis. * Atrial fibrillation - Metoprolol intolerable, on Amiodarone 200mg bid thru 01/02/2023, then 200mg daily, Eliquis 2.5mg bid. * Acute heart failure reduced ejection fraction - Furosemide 20mg bidlx. * Insomnia - Melatonin 10mg qhs. * Hyperlipidemia Pravastatin 20mg qhs. * Wheezing - Prednisone 10mg daily x days, Duoneb 3ml q6h prn wheezing. * Cellulitis of legs - Keflex 500mg bid, Doxycycline 100mg bid x 7 days. * Onychomycosis - Consult Podiatry. Medications at Discharge Home Medications pravastatin 20 mg tablet 20 mg PO QHS cholesterol 12/14/22 acetaminophen 325 mg tablet 650 mg (2 x 325 mg) PO Q4H PRN PRN Pain Score 1-10 #0 tabs 12/18/22 melatonin 10 mg sublingual tablet 10 mg PO QHS sleep aid #0 tabs 12/18/22 acetaminophen 500 mg tablet 1,000 mg (2 x 500 mg) PO Q6H PRN PRN Pain Score 1-10 #0 tabs 12/23/22 amiodarone 200 mg tablet 200 mg PO DAILY 30 days #30 tabs 12/23/22 apixaban 5 mg tablet (Eliquis) 2.5 mg (1/2 x 5 mg) PO BID 30 days #30 tabs 12/23/22 furosemide 20 mg tablet 20 mg PO BIDLX 30 days #60 tabs 12/23/22 Hospital Course Operations None Procedures None Summary of Care Provided Minutes Spent on Discharge: 35 Hospital Course: 87 year old male with below past medical history hospitalized for acute respiratory failure secondary to acute heart failure with reduced ejection fraction, pulmonary edema, complicated by NSTEMI, new onset atrial fibrillation with RVR, admitted to TCU with debility, here for rehabilitation, strengthening, prior to discharge home alone. Discharge home with family 12/26/2022, [facility] PT/OT. Physical Exam Const alert General Appearance: cooperative HEENT normocephalic Eyes PERRL and EOMs intact bilaterally Neck supple, no JVD and no carotid bruits Resp normal respiratory effort, normal air movement and clear to auscultation bilaterally Cardio regular rate and regular rhythm GI normal to inspection, nondistended, normoactive bowel sounds, non-tender and non-distended Extremity normal capillary refill General Extremity: Negative for edema Skin no rashes or lesions noted General Skin Exam: no breakdown Psych affect normal Appearance: appropriate Weight / BMI Weight Weight: 88.904 kg Body Mass Index (BMI) 27.3 ABG / Lab / Microbiology Data 12/20/22 06:50 12/20/22 06:50 D/C Instructions Discharge Diet: No restrictions Discharge Activity: Return to Normal Activity, May Shower and Use Walker Weight Bearing Status: Weight bearing as tolerated Call your doctor if you observe: Fever of 101 or Higher, Inability to urinate, Inability to have a bowel movement, Shortness of breath, Dizziness, Fainting spells, Swelling in the ankles, Chest pain and Uncontrolled pain Additional Instructions: Discharge home with family 12/26/2022, [facility] PT/OT. Meaningful Use Info Meaningful Use Diagnoses (Choose all that apply): None applicable Discharge Plan Admission Admit Date/Time: 12/19/22 11:40 Primary Reason for Your Visit: Debility. Attending Provider: Obed Stallings Chi Primary Care Provider: George Silver Consulting Providers: Rufino Leavitt Instructions Additional Instructions / Restrictions: Discharge home with family 12/26/2022, [facility] PT/OT. Discharge Orders/Prescriptions Prescriptions: New acetaminophen 500 mg Tablet 1,000 mg PO Q6H PRN PRN (Reason: Pain Score 1-10) Qty: 0 0RF amiodarone 200 mg Tablet 200 mg PO DAILY 30 Days Qty: 30 0RF furosemide 20 mg Tablet 20 mg PO BIDLX 30 Days Qty: 60 0RF Eliquis 5 mg Tablet 2.5 mg PO BID 30 Days Qty: 30 0RF Continued pravastatin 20 mg tablet 20 mg PO QHS melatonin 10 mg Tablet, Sublingual 10 mg PO QHS Qty: 0 0RF Discontinued amiodarone 200 mg Tablet 200 mg PO BID Qty: 0 0RF Rx Instructions: 200 mg p.o. twice daily for 2 weeks then 200 mg daily furosemide 20 mg Tablet 20 mg PO BIDLX Qty: 0 0RF Eliquis 5 mg Tablet 2.5 mg PO BID Qty: 0 0RF No Action acetaminophen 325 mg Tablet 650 mg PO Q4H PRN PRN (Reason: Pain Score 1-10) Qty: 0 0RF Referrals / Follow Up: George Silver DO [Primary Care Provider] - Disposition Disposition (needs filled in before D/C Order can be placed): Home Health Service
[2022-12-23 19:40] VITALS: PULSE 77; RESP 16; O2SAT 96
[2022-12-23] MEDS: Acetaminophen 500 MG Tablet 1000 MG PO (20:59)
[2022-12-23] MEDS: MELATONIN 10 MG TABLET PO (21:00)
[2022-12-23] MEDS: Pravastatin 20 MG Tablet PO (21:00)
[2022-12-23 21:37] VITALS: PULSE 72; RESP 24; O2SAT 97
[2022-12-23] MEDS: Ipratropium/Albuterol Sulfate 3 ML AMPUL.NEB INHALATION (21:37)
[2022-12-24] MEDS: Acetaminophen 500 MG Tablet 1000 MG PO ×3 (05:31→21:11)
[2022-12-24] MEDS: Senna/Docusate Sodium 1 Tablet PO (05:32)
[2022-12-24] MEDS: Cephalexin 500 MG Capsule PO ×2 (05:32→17:09)
[2022-12-24] MEDS: Doxycycline 100 MG CAPSULE PO ×2 (05:32→17:09)
[2022-12-24] MEDS: Menthol/Lanolin/Calamine/Znox 113 GM Tube 1 APPLIC TOPICAL ×2 (05:32→21:16)
[2022-12-24] MEDS: APIXABAN 2.5 MG TABLET (WCH) PO ×2 (05:33→17:09)
[2022-12-24] MEDS: Furosemide 20 MG Tablet PO ×2 (05:33→14:39)
[2022-12-24 05:54] VITALS: BMI 27.1
[2022-12-24] MEDS: Amiodarone 200 MG Tablet PO ×2 (08:05→17:09)
[2022-12-24] MEDS: predniSONE 10 MG Tablet PO (08:05)
[2022-12-24] MEDS: Petrolatum 33% Tube 1 APPLIC TOPICAL (08:06)
[2022-12-24 10:30] VITALS: PULSE 79; O2SAT 97
--- NOTE | 2022-12-24 13:03 | MDS.RN ---
Pain interview for MDS completed.
[2022-12-24 14:40] VITALS: BP 124/58; PULSE 79; RESP 20; TEMP 36.6; O2SAT 97
[2022-12-24] MEDS: Pravastatin 20 MG Tablet PO (21:11)
[2022-12-24] MEDS: MELATONIN 10 MG TABLET PO (21:11)
[2022-12-25 05:38] VITALS: BMI 27.2
[2022-12-25] MEDS: Cephalexin 500 MG Capsule PO ×2 (05:57→17:04)
[2022-12-25] MEDS: Doxycycline 100 MG CAPSULE PO ×2 (05:57→17:04)
[2022-12-25] MEDS: Menthol/Lanolin/Calamine/Znox 113 GM Tube 1 APPLIC TOPICAL ×2 (05:57→17:06)
[2022-12-25] MEDS: Acetaminophen 500 MG Tablet 1000 MG PO ×3 (05:57→22:57)
[2022-12-25] MEDS: Senna/Docusate Sodium 1 Tablet PO ×2 (05:57→17:04)
[2022-12-25] MEDS: Furosemide 20 MG Tablet PO ×2 (05:57→14:38)
[2022-12-25] MEDS: APIXABAN 2.5 MG TABLET (WCH) PO ×2 (05:57→17:04)
[2022-12-25] MEDS: Amiodarone 200 MG Tablet PO ×2 (08:04→17:04)
[2022-12-25] MEDS: predniSONE 10 MG Tablet PO (08:04)
[2022-12-25] MEDS: Petrolatum 33% Tube 1 APPLIC TOPICAL (08:04)
--- NOTE | 2022-12-25 10:32 | CASEMGMT ---
Social Work BIMS () and PHQ-9 () completed for MDS assessment. Nyla Quintanilla MSW MANAGER GOLF
[2022-12-25 13:49] VITALS: BP 132/61; PULSE 88; RESP 18; TEMP 36.2; O2SAT 96
[2022-12-25 20:10] VITALS: PULSE 72; RESP 16; O2SAT 97
[2022-12-25] MEDS: Pravastatin 20 MG Tablet PO (22:58)
[2022-12-25] MEDS: MELATONIN 10 MG TABLET PO (23:28)
[2022-12-26 04:05] VITALS: BMI 26.7
[2022-12-26] MEDS: Cephalexin 500 MG Capsule PO (05:27)
[2022-12-26] MEDS: Doxycycline 100 MG CAPSULE PO (05:27)
[2022-12-26] MEDS: APIXABAN 2.5 MG TABLET (WCH) PO (05:27)
[2022-12-26] MEDS: Furosemide 20 MG Tablet PO (05:27)
[2022-12-26] MEDS: Senna/Docusate Sodium 1 Tablet PO (05:27)
[2022-12-26] MEDS: Acetaminophen 500 MG Tablet 1000 MG PO (05:27)
[2022-12-26] MEDS: Petrolatum 33% Tube 1 APPLIC TOPICAL (05:30)
[2022-12-26] MEDS: Menthol/Lanolin/Calamine/Znox 113 GM Tube 1 APPLIC TOPICAL (05:34)
[2022-12-26] MEDS: predniSONE 10 MG Tablet PO (08:19)
[2022-12-26] MEDS: Amiodarone 200 MG Tablet PO (08:19)
[2022-12-26 10:20] VITALS: BP 119/50; PULSE 81; RESP 20; TEMP 36.1; O2SAT 95
--- NOTE | 2022-12-30 07:35 | MDS.RN ---
Information for the mds was obtained from review of the clinical record, interview of resident, staff, and direct observation of resident's care.
== END 2022-12-26 10:10 | disposition home health service (06) | DRG 280 ==
PROVIDERS: Admitting Provider Family Medicine Geriatric Medicine; PCP Family Medicine; Visit Provider Family Medicine Geriatric Medicine
DX: I11.0 Hypertensive heart disease with heart failure (principal); I21.4 Non-ST elevation (NSTEMI) myocardial infarction; I50.21 Acute systolic (congestive) heart failure; L03.115 Cellulitis of right lower limb; L03.116 Cellulitis of left lower limb; Z79.01 Long term (current) use of anticoagulants; I48.91 Unspecified atrial fibrillation; E78.00 Pure hypercholesterolemia, unspecified; B35.1 Tinea unguium; G47.00 Insomnia, unspecified; Z79.899 Other long term (current) drug therapy
CPT/HCPCS: 36415; 80048; 85025; 94640; 94667; 97110; 97116; 97162; 97166; 97530; 97535; 97802; A4216

== ENCOUNTER 2023-02-05 15:45 | Inpatient (IN) | payer MEDICARE, SELFPAY ==
[2023-02-05] VITALS (9 sets, daily range): BP systolic 93–142; BP diastolic 58–93; PULSE 71–95; RESP 16–32; TEMP 36.2–36.9; O2SAT 90–98; BMI 26.4; BMI 27.6
--- NOTE | 2023-02-05 16:25 | EKG12_ITS ---
Test Reason : SOB Blood Pressure : / mmHG Vent. Rate : 080 BPM Atrial Rate : 080 BPM P-R Int : 174 ms QRS Dur : 086 ms QT Int : 384 ms P-R-T Axes : 061 -08 027 degrees QTc Int : 442 ms Normal sinus rhythm Normal ECG When compared with ECG of 14-DEC-2022 22:35, No significant change was found Confirmed by YURI CRUM, ANAND ([id number]), society editor KAROL WILLIAM ([id number]) on 02/10/2023 10:25:11 AM Referred By: DEON Confirmed By:ANAND WELCH MD
--- NOTE | 2023-02-05 16:26 | ED.VIS.DYS ---
HPI History of Present Illness Chief Complaint: Shortness of Breath Informant: patient and family Narrative Narrative: Presents with dyspnea. Patient has a history of CHF. Per his daughter he does have some mild asthma and is on an inhaler although that is not listed on his med list. He is on and taking his Eliquis and Lasix. He was diagnosed couple months ago with A-fib as well as congestive heart failure. He states over the last week or so he has been getting more short of breath. He states he can only walk a few feet before he has to sit and rest. He is not getting chest pain. No fevers or chills. No real coughing. He thinks he might have put on weight but has not actually weighed himself. He is still making urine. He is not getting notable peripheral edema. [facility] Medical History HTN (hypertension) Hypercholesteremia Home Medications pravastatin 20 mg tablet 20 mg PO QHS CHOLESTEROL 12/14/22 [History Last Taken 12/18/22] melatonin 10 mg sublingual tablet 10 mg PO QHS SLEEP #0 tabs 12/18/22 [Rx Last Taken 12/18/22] amiodarone 200 mg tablet 200 mg PO DAILY IRREGULAR HEARTBEAT 30 days #30 tabs 12/23/22 [Rx Last Taken Unknown] apixaban 5 mg tablet (Eliquis) 2.5 mg (1/2 x 5 mg) PO BID BLOOD THINNER 30 days #30 tabs 12/23/22 [Rx Last Taken Unknown] furosemide 20 mg tablet 20 mg PO BIDLX EDEMA 30 days #60 tabs 12/23/22 [Rx Last Taken Unknown] Allergy/AdvReac Type Severity Reaction Status Date / Time No Known Drug Allergies Allergy Mild none Verified 02/05/23 15:46 Surgical History History of appendectomy Social History household members: none Smoking Status: Never smoker alcohol intake: never substance use type: does not use ROS ROS ED ROS Narrative A complete review of systems was performed and is negative except as documented in the history of present illness. Some specific details below. Constitutional: No recent fevers or chills. No true malaise. EYE: No discharge, visual complaints, or pain. ENT: No difficulty swallowing. No swelling. No pain. No reflux symptoms. CV: He has no palpitations or chest pain. No syncope or presyncope Respiratory: See history of present illness. GI: No abdominal pain. No nausea vomiting diarrhea. No blood in stool. : No frequency dysuria or hematuria. Musculoskeletal: No recent trauma. No pains. No swelling. Although, he has had swelling in the past. Skin: No rash. Nondiaphoretic. Neuro: No weakness or numbness. Endocrine: No polyuria or polydipsia. EXAM Physical Exam Narrative Exam Narrative: CONSTITUTIONAL: Patient is nontoxic in appearance. The patient looks comfortable. Work of breathing looks slightly increased though. HEENT: No notable trauma. Mucous membranes moist. EYES: No conjunctival injection. No proptosis. NECK:No JVD. No stridor. CARDIOVASCULAR: Regular rate. Irregular rhythm. No notable murmur but his breath sounds are somewhat loud and hard to hear heart tones. No JVD. RESPIRATORY: He is not in respiratory distress but does have slightly increased work. Patient has crackles at the bases but he also has expiratory wheezing. GASTROINTESTINAL: Not distended. Bowel sounds are normal. No tenderness. No guarding. No rebound. No palpable mass. No bruit is heard. GENITOURINARY: No tenderness over the bladder. No CVA tenderness. MUSCULOSKELETAL: Atraumatic. No peripheral edema. He has chronic venous stasis changes. But his legs are not warm. NEUROLOGICAL: Patient is alert and appropriate. No focal deficit noted. SKIN: No noted rashes. No diaphoresis. PSYCHIATRIC: Patient is calm. Mood is appropriate. Const Vital Signs: 02/05/23 15:46 02/05/23 15:56 02/05/23 15:59 Temperature 97.2 F L 97.2 F L Temperature Source Temporal Oral Pulse Rate 73 89 Respiratory Rate 24 H 28 H Respiratory Effort Short of Breath Respiratory Depth Shallow Respiratory Pattern Tachypnea Blood Pressure 118/93 H 142/78 H Blood Pressure Mean 101 99 Pulse Ox 90 94 Oxygen Delivery Method Room Air Nasal Cannula Room Air Oxygen Flow Rate (L/min) 2 02/05/23 16:40 02/05/23 16:25 02/05/23 17:38 Temperature Temperature Source Pulse Rate 78 71 Respiratory Rate 32 H 16 Respiratory Effort Respiratory Depth Respiratory Pattern Tachypnea Blood Pressure 128/78 H Blood Pressure Mean 94 Pulse Ox 98 Oxygen Delivery Method Nasal Cannula Room Air Oxygen Flow Rate (L/min) 2 02/05/23 17:38 02/05/23 18:18 Temperature 97.8 F 97.9 F Temperature Source Oral Oral Pulse Rate 71 95 Respiratory Rate 16 16 Respiratory Effort Respiratory Depth Respiratory Pattern Blood Pressure 128/78 H 93/58 L Blood Pressure Mean 94 69 Pulse Ox 91 Oxygen Delivery Method Room Air Room Air Oxygen Flow Rate (L/min) 2 MDM MDM MDM Narrative Medical decision making narrative: Patient CBC shows chronic elevation white count. Minimal anemia which is not causing his symptoms. Platelets are normal. Patient's electrolytes show no marked abnormalities. Minimally elevated BUN to creatinine ratio but preserved creatinine. Troponins negative. Patient's BNP is 770. Although this is lower than his last level, it is markedly elevated. His last level when he was diagnosed with A-fib and an acute congestive heart failure. I think this patient has CHF. His last echo shows diastolic dysfunction and an EF of 45%. We walked him and he only made it from the bed to his door and dropped saturations to 86% and was very dyspneic. He improved when he was back in bed. With his significant hypoxia and exertional dyspnea I think he does need inpatient management. There also may be a component of bronchospasm involved here also but I think his CHF is likely the biggest issue. My independent interpretation of his chest x-ray shows significant increased markings at the left base and somewhat the right. Although it is better than a prior 1 when he was in significant CHF. Lab Data Attestation: I reviewed the patient's lab results. Labs: Laboratory Results - last 24 hr 02/05/23 15:55 WBC 16.7 H RBC 3.78 L Hgb 11.8 L Hct 37.1 L MCV 98.1 H MCH 31.2 MCHC 31.8 L RDW Std Deviation 66.3 H RDW Coeff of Marlon 18.5 H Plt Count 410 MPV 9.3 Immature Gran % (Auto) 0.700 Neut % (Auto) 75.8 H Lymph % (Auto) 8.9 L [place] % (Auto) 11.2 H Eos % (Auto) 2.8 Baso % (Auto) 0.6 Absolute Neuts (auto) 12.6 H Absolute Lymphs (auto) 1.48 Nucleated RBC % 0 Differential Comment SEE COMMENT Diff Path Review May foll Platelet Estimate SLT INC RBC Morphology N CHROM Anisocytosis 1+ Macrocytosis 1+ Sodium 135 L Potassium 4.1 Chloride 102 Carbon Dioxide 27.0 Anion Gap 6 BUN 26 H Creatinine 1.29 Estim Creat Clear Calc 42.16 Est GFR (MDRD) Af Amer 68 Est GFR (MDRD) Non-Af 56 L BUN/Creatinine Ratio 20.2 H Glucose 124 H Calcium 9.4 Troponin I High Sens 44 B-Natriuretic Peptide 772.1 H Radiography Diagnostic Testing: Clinical Impression(s) from Imaging Studies Chest X-Ray 02/05/23 16:45 IMPRESSION: Persistent bilateral lower lobe airspace disease worse on the left with interval improvement since previous exam Electronically Signed: Rufino Mckinnon MD at 17:03 EDT Reading Location ID and State: [facility] [place] / [place] Tel , Service support , Discharge Plan Triage Chief Complaint: Shortness of Breath ED Provider: Morteza Baum Dx/Rx/DC Orders Clinical Impression: Hx of diastolic dysfunction, Congestive heart failure, Bronchospasm, Hypoxia Prescriptions: No Action pravastatin 20 mg tablet 20 mg PO QHS melatonin 10 mg Tablet, Sublingual 10 mg PO QHS Qty: 0 0RF amiodarone 200 mg Tablet 200 mg PO DAILY 30 Days Qty: 30 0RF furosemide 20 mg Tablet 20 mg PO BIDLX 30 Days Qty: 60 0RF Eliquis 5 mg Tablet 2.5 mg PO BID 30 Days Qty: 30 0RF Primary Care Provider: George Silver Referrals: George Silver DO [Primary Care Provider] - Disposition Disposition: Acute Care Hospital [facility]
[2023-02-05] MEDS: Ipratropium/Albuterol Sulfate 3 ML AMPUL.NEB INHALATION (16:32)
[2023-02-05 16:45] LABS: Absolute Lymphocyte Count 1.48 X10^3/uL (0.83-4.51); Absolute Neutrophil Count 12.6 X10^3/uL (2.0-7.7); Basophil% 0.6 % (0-1); Eosinophil# 0.47 X10^3/uL; Eosinophils% 2.8 % (0-5); Hematocrit 37.1 % (40-54); Hemoglobin 11.8 g/dL (13.0-16.5); Lymphocyte # 1.48 X10^3/ul (0.83-4.51); Lymphocyte % 8.9 % (19-41); Mean Corp Hgb Conc 31.8 g/dL (32-36); Mean Corpuscular Hgb 31.2 pg (27.0-32.0); Mean Corpuscular Volume 98.1 fL (80-94); Mean Platelet Vol. 9.3 fl (6.2-12.0); Monocyte# 1.87 X10^3/uL; Monocyte% 11.2 % (0-10); NRBC Flagged by Analyzer 0 % (0-5); Neutrophil # 12.64 X10^3/uL (2.7-7.7); Neutrophil % 75.8 % (47-70); POSITIVE DIFFERENTIAL YES; POSITIVE MORPHOLOGY YES; Platelet Count 410 K/mm3 (150-450); RBC Distribution Width CV 18.5 % (11.6-14.6); RBC Distribution Width SD 66.3 fl (35.1-43.9); Red Blood Count 3.78 M/mm3 (4.6-6.2); White Blood Count 16.7 K/mm3 (4.4-11.0)
--- NOTE | 2023-02-05 16:45 | RAD_ITS ---
STUDY: X-RAY CHEST REASON FOR EXAM: Male, 87 years old. SOB TECHNIQUE: AP portable COMPARISON: December 14, 2022 FINDINGS: Reticulonodular interstitial infiltrates or pulmonary edema in the right lower lobe with more pronounced consolidation in left lower lobe.. There is no demonstrated pleural abnormality. Heart is enlarged. Normal mediastinum and adams. Normal visualized pulmonary arteries. Mildly calcified aortic arch and descending thoracic aorta. Dorsal spine and shoulders demonstrate degenerative change. Normal visualized ribs, clavicles. There is no demonstrated abnormality of the visualized soft tissue structures of the upper abdomen. There is interval improvement in the airspace disease noted in the right lower lobe since prior exam and very slight improvement on the left. RAD/Chest 1 View (Portable) IMPRESSION: Persistent bilateral lower lobe airspace disease worse on the left with interval improvement since previous exam Electronically Signed: Rufino Mckinnon MD at 17:03 EDT ,
[2023-02-05 16:48] LABS: Differential Indicated SCAN CRITERIA MET
[2023-02-05 17:04] LABS: Anion Gap 6 (5-15); BUN 26 mg/dL (7-18); BUN/Creat Ratio 20.2 RATIO (10-20); Calcium,Total 9.4 mg/dL (8.5-10.1); Chloride 102 mmol/L (98-107); Creatinine, Serum 1.29 mg/dL (0.70-1.30); EST Glomerular Filtration Rate 56 mL/min (>60); Est Glom Filt Rate - Afr Amer 68 mL/min (>60); Estimated Creatinine Clearance 42.16 ml/min; Glucose 124 mg/dL (74-106); Potassium 4.1 mmol/L (3.5-5.1); Sodium Level 135 mmol/L (136-145); Troponin-I HS 44 pg/mL (3.0-78.0)
[2023-02-05 17:08] LABS: Anisocytosis 1+; Macrocytosis 1+; Platelet Estimate SLT INC (ADEQ); Red Cell Morphology N CHROM NORMAL (NORM C&C)
[2023-02-05 17:20] LABS: BNP,B-Type NATRIURETIC PEPTIDE 772.1 pg/mL (0-100)
--- NOTE | 2023-02-05 19:09 | PCM.HP.STD ---
HPI - General General Date of Admission: 02/05/23 Date of Service: 02/05/23 Chief Complaint: SOB HPI Narrative NAEEM GIBSON, is a 87 M with a history of heart failure with preserved ejection fraction, fib, hypertension, asthma, right lower extremity cellulitis who presented to [facility] 02/05/2023 for increasing shortness of breath. In the ED he was found to have BNP of 772 and chest x-ray and clinical exam consistent with congestion/fluid overload. Patient also had wheezing and reportedly has a history of asthma and uses as needed albuterol and he was given a breathing treatment and IV Lasix. He was ambulated to the door and dropped down to 86% on room air, hospitalist called for admission. Patient seen at bedside with family member present and he endorses over the past week he has been having increased shortness of breath and over the past couple of days he cannot ambulate more than 2 to 3 feet without becoming so winded he has to sit down. Feels slightly better in the ED after receiving treatment. Reports a little bit of a cough that is white sputum occasionally, no sick contacts, no fevers. After physical exam revealed right lower extremity erythema and warmth patient's family member did endorse that he has been treated with antibiotics for cellulitis multiple times and actually looks better than it had however it is still red and warm compared to the other. Patient is unsure if he has gained weight but thinks he might be retaining some fluid. No other specific complaints at this time [facility] Medical History HTN (hypertension) Hypercholesteremia Home Medications pravastatin 20 mg tablet 20 mg PO QHS CHOLESTEROL 12/14/22 [History Last Taken 12/18/22] melatonin 10 mg sublingual tablet 10 mg PO QHS SLEEP #0 tabs 12/18/22 [Rx Last Taken 12/18/22] amiodarone 200 mg tablet 200 mg PO DAILY IRREGULAR HEARTBEAT 30 days #30 tabs 12/23/22 [Rx Last Taken Unknown] apixaban 5 mg tablet (Eliquis) 2.5 mg (1/2 x 5 mg) PO BID BLOOD THINNER 30 days #30 tabs 12/23/22 [Rx Last Taken Unknown] furosemide 20 mg tablet 20 mg PO BIDLX EDEMA 30 days #60 tabs 12/23/22 [Rx Last Taken Unknown] Allergy/AdvReac Type Severity Reaction Status Date / Time No Known Drug Allergies Allergy Mild none Verified 02/05/23 15:46 Surgical History History of appendectomy Social History household members: none Smoking Status: Never smoker alcohol intake: never substance use type: does not use ROS ROS Narrative General: Denies fever/chills HENT: Denies headache, denies stuffy nose, denies sore throat EYES: Denies changes in vision Resp: Occasional cough sometimes with white sputum, increasing shortness of breath Cardiac: Denies chest pain GI: Denies abdominal pain, denies changes in bowel, denies nausea/vomiting : Denies changes in urination Extremity: Has some right lower extremity erythema MSK: Denies weakness Neuro: Denies any numbness/tingling Heme: Denies any bleeding or bruising Skin: Right lower extremity erythema and warmth with irregular outline and appears to be cellulitic Psychiatric: No complaints voiced Vital Signs Vital Signs Vital Signs: 02/05/23 15:46 02/05/23 15:56 02/05/23 15:59 Temperature 97.2 F L 97.2 F L Temperature Source Temporal Oral Pulse Rate 73 89 Respiratory Rate 24 H 28 H Respiratory Effort Short of Breath Respiratory Depth Shallow Respiratory Pattern Tachypnea Blood Pressure 118/93 H 142/78 H Blood Pressure Mean 101 99 Pulse Ox 90 94 Oxygen Delivery Method Room Air Nasal Cannula Room Air Oxygen Flow Rate (L/min) 2 02/05/23 16:40 02/05/23 16:25 02/05/23 17:38 Temperature Temperature Source Pulse Rate 78 71 Respiratory Rate 32 H 16 Respiratory Effort Respiratory Depth Respiratory Pattern Tachypnea Blood Pressure 128/78 H Blood Pressure Mean 94 Pulse Ox 98 Oxygen Delivery Method Nasal Cannula Room Air Oxygen Flow Rate (L/min) 2 02/05/23 17:38 02/05/23 18:18 Temperature 97.8 F 97.9 F Temperature Source Oral Oral Pulse Rate 71 95 Respiratory Rate 16 16 Respiratory Effort Respiratory Depth Respiratory Pattern Blood Pressure 128/78 H 93/58 L Blood Pressure Mean 94 69 Pulse Ox 91 Oxygen Delivery Method Room Air Room Air Oxygen Flow Rate (L/min) 2 Weight Weight: 85.9 kg Body Mass Index (BMI) 26.4 Physical Exam Narrative General: Alert, oriented, slight increased work of breathing HEENT: Atraumatic, normocephalic Eyes: Anicteric, normal conjunctiva, extraocular movements grossly intact Neck: Supple Respiratory: Crackles bilaterally with slight increased work of breathing Cardiovascular: Regular rate and rhythm GI: Soft, nontender, nondistended Extremities: Right lower extremity with patch of erythema and warmth with no discrete abscess or drainage Musculoskeletal: Moving all extremities Neuro: No overt focal neurological deficits Skin: As above Psych: Cooperative Results Lab / Micro Data 02/05/23 15:55 02/05/23 15:55 Labs: Laboratory Results - last 24 hr 02/05/23 15:55: WBC 16.7 H, RBC 3.78 L, Hgb 11.8 L, Hct 37.1 L, MCV 98.1 H, MCH 31.2, MCHC 31.8 L, RDW Std Deviation 66.3 H, RDW Coeff of Marlon 18.5 H, Plt Count 410, MPV 9.3, Immature Gran % (Auto) 0.700, Neut % (Auto) 75.8 H, Lymph % (Auto) 8.9 L, [place] % (Auto) 11.2 H, Eos % (Auto) 2.8, Baso % (Auto) 0.6, Absolute Neuts (auto) 12.6 H, Absolute Lymphs (auto) 1.48, Nucleated RBC % 0, Differential Comment SEE COMMENT, Diff Path Review May foll, Platelet Estimate SLT INC, RBC Morphology N CHROM, Anisocytosis 1+, Macrocytosis 1+, Sodium 135 L, Potassium 4.1, Chloride 102, Carbon Dioxide 27.0, Anion Gap 6, BUN 26 H, Creatinine 1.29, Estim Creat Clear Calc 42.16, Est GFR (MDRD) Af Amer 68, Est GFR (MDRD) Non-Af 56 L, BUN/Creatinine Ratio 20.2 H, Glucose 124 H, Calcium 9.4, Troponin I High Sens 44, B-Natriuretic Peptide 772.1 H Radiology Impression Chest X-Ray 02/05/23 16:45 IMPRESSION: Persistent bilateral lower lobe airspace disease worse on the left with interval improvement since previous exam Electronically Signed: Rufino Mckinnon MD at 17:03 EDT Reading Location ID and State: [facility] [place] [facility] [place] Tel , Service support , Assessment & Plan Assessment/Plan (1) Acute heart failure with reduced ejection fraction and diastolic dysfunction: (2) Cellulitis of right lower limb: (3) HTN (hypertension): PLAN: Plan #Hypoxia secondary to acute on chronic heart failure with preserved ejection fraction -BNP 772, chest x-ray appears congested and patient has crackles -Daily weights, I's and O's -Had echocardiogram less than 2 months ago with EF borderline at 45% and stage III diastolic dysfunction noted -IV Lasix -Fluid restriction, low-sodium #Right lower extremity cellulitis -Has been treated for this twice without complete resolution and it will improve but not completely resolved, no longer on antibiotics and does have exam consistent with right lower extremity cellulitis -We will start Unasyn -Chronically elevated white blood cell count, continue to monitor #CKD unclear subtype -Has had widely variable creatinines and creatinine clearances previously, presently creatinine is lowest it has been in her system, continue to monitor #Reported history of asthma -Uses albuterol at home -Reportedly was wheezing in the ED and this and respiratory status improved with nebs even before Lasix the Lasix still necessary -We will schedule nebs, may need PFTs on outpatient basis #History of A-fib -Continue Amio and Felisha #DVT ppx: Felisha Hughes MD Charges/Coding Visit Charges Inpatient E&M: 70029 Init Hosp L2
[2023-02-05] MEDS: Furosemide 40 MG/4 ML Vial IV (19:13)
[2023-02-05] MEDS: 0.9% Saline Lock 10 ML Syringe IV (21:25)
[2023-02-05] MEDS: 0.9% Normal Saline (250mL Bag) 250 ML 15 ML IV (21:25)
[2023-02-05] MEDS: APIXABAN 2.5 MG TABLET (WCH) PO (21:26)
[2023-02-05] MEDS: Pravastatin 20 MG Tablet PO (21:26)
[2023-02-05] MEDS: MELATONIN 10 MG TABLET PO (21:26)
[2023-02-05] MEDS: Ampicillin/Sulbactam 3 GM in 0.9% Normal Saline (100mL MB+) 100 ML IV (21:30)
[2023-02-06] VITALS (11 sets, daily range): BP systolic 118–132; BP diastolic 57–69; PULSE 64–104; RESP 16–28; TEMP 35.9–36.4; O2SAT 89–98; BMI 27.4
[2023-02-06] MEDS: 0.9% Saline Lock 10 ML Syringe IV (05:13)
[2023-02-06] MEDS: Ampicillin/Sulbactam 3 GM in 0.9% Normal Saline (100mL MB+) 100 ML IV ×4 (05:14→23:42)
[2023-02-06] MEDS: Ipratropium/Albuterol Sulfate 3 ML AMPUL.NEB INHALATION ×3 (08:11→19:50)
--- NOTE | 2023-02-06 08:40 | PN.HOSP_ITS ---
Subjective Subjective Well, breathing little bit easier today with the Lasix. Does not normally wear oxygen at home Objective Data Objective Data Vital Signs: Vital Signs Temp Pulse Resp BP Pulse Ox O2 Del Method O2 Flow Rate 97.5 F L 85 28 H 132/69 H 95 Nasal Cannula 2 02/06/23 05:56 02/06/23 05:56 02/06/23 08:17 02/06/23 05:56 02/06/23 05:56 02/06/23 08:14 02/06/23 08:14 Oxygen Flow Rate (L/min) 2 Oxygen Delivery Method Nasal Cannula Weight: 191 lb 2.252 oz Body Mass Index (BMI) 27.4 Intake & Output: Intake and Output for Last 24 Hours 02/05/23 02/06/23 02/07/23 03:59 03:59 03:59 Intake Total 376.00 / 376.00 112 / 112 Output Total 850 / 850 Balance -474.00 / -474.00 112 / 112 Lab / Micro Data 02/05/23 15:55 02/05/23 15:55 Labs: Laboratory Results - last 24 hr 02/05/23 15:55: WBC 16.7 H, RBC 3.78 L, Hgb 11.8 L, Hct 37.1 L, MCV 98.1 H, MCH 31.2, MCHC 31.8 L, RDW Std Deviation 66.3 H, RDW Coeff of Marlon 18.5 H, Plt Count 410, MPV 9.3, Immature Gran % (Auto) 0.700, Neut % (Auto) 75.8 H, Lymph % (Auto) 8.9 L, [place] % (Auto) 11.2 H, Eos % (Auto) 2.8, Baso % (Auto) 0.6, Absolute Neuts (auto) 12.6 H, Absolute Lymphs (auto) 1.48, Nucleated RBC % 0, Differential Comment SEE COMMENT, Diff Path Review May holly, Platelet Estimate SLT INC, RBC Morphology N CHROM, Anisocytosis 1+, Macrocytosis 1+, Sodium 135 L, Potassium 4.1, Chloride 102, Carbon Dioxide 27.0, Anion Gap 6, BUN 26 H, Creatinine 1.29, Estim Creat Clear Calc 42.16, Est GFR (MDRD) Af Amer 68, Est GFR (MDRD) Non-Af 56 L, BUN/Creatinine Ratio 20.2 H, Glucose 124 H, Calcium 9.4, Troponin I High Sens 44, B-Natriuretic Peptide 772.1 H Radiography Diagnostic Testing: Radiology Impression Chest X-Ray 02/05/23 16:45 IMPRESSION: Persistent bilateral lower lobe airspace disease worse on the left with interval improvement since previous exam Electronically Signed: Rufino Mckinnon MD at 17:03 EDT Reading Location ID and State: [facility] / [place] Tel , Service support , Physical Exam Narrative General: Alert, Oriented x3, Cooperative, No apparent distress HEENT: Atraumatic, PERRLA, EOMI, Normocephalic Oral: Moist Mucosa Neck: Supple, No JVD Lungs: Diminished, Normal air movement, No rhonchi, No wheeze, rales Cardiovascular: Regular rate, Regular Rhythm, Normal S1, Normal S2, No murmurs Abdomen: Soft, Non Tender, Non-Distended, No Hepato-splenomegaly Extremities: No edema, Capillary Refill Less than 3 Seconds Skin: Slight redness in his right lower extremity Musculoskeletal: No Tenderness to Palpation of Joints or Extremities Neurological: Cranial nerves II-XII grossly intact, Motor Exam 5/5 strength throughout, Sensory exam intact to light touch and pain Psych/Mental Status: Normal Affect, Appropriate Assessment & Plan Assessment/Plan (1) Acute heart failure with reduced ejection fraction and diastolic dysfunction: (2) Cellulitis of right lower limb: (3) HTN (hypertension): PLAN: Plan 1. Hypoxia secondary to acute on chronic diastolic CHF/HTN/HLD/A-fib -BNP 772, chest x-ray appears congested and patient has crackles -Daily weights, I's and O's -Had echocardiogram less than 2 months ago with EF borderline at 45% and stage III diastolic dysfunction noted -IV Lasix with a fluid restriction ?Continue with amiodarone and his pravastatin ? Continue with Eliquis 2. Right lower extremity cellulitis -Has been treated for this twice without complete resolution and it will improve but not completely resolved, no longer on antibiotics and does have exam consistent with right lower extremity cellulitis -We will start Unasyn -Chronically elevated white blood cell count, continue to monitor 3. CKD unclear subtype -Has had widely variable creatinines and creatinine clearances previously, presently creatinine is lowest it has been in her system, continue to monitor 4. Reported history of asthma -Uses albuterol at home -Reportedly was wheezing in the ED and this and respiratory status improved with nebs even before Lasix the Lasix still necessary -We will schedule nebs, may need PFTs on outpatient basis DVT: Eliquis Charges/Coding Visit Charges Inpatient E&M: 07130 Subs Hosp L2
[2023-02-06 08:54] LABS: Absolute Lymphocyte Count 1.23 X10^3/uL (0.83-4.51); Absolute Neutrophil Count 9.7 X10^3/uL (2.0-7.7); Basophil% 0.8 % (0-1); Eosinophil# 0.79 X10^3/uL; Eosinophils% 5.9 % (0-5); Hematocrit 33.7 % (40-54); Hemoglobin 10.9 g/dL (13.0-16.5); Lymphocyte # 1.23 X10^3/ul (0.83-4.51); Lymphocyte % 9.2 % (19-41); Mean Corp Hgb Conc 32.3 g/dL (32-36); Mean Corpuscular Hgb 31.4 pg (27.0-32.0); Mean Corpuscular Volume 97.1 fL (80-94); Monocyte# 1.42 X10^3/uL; Monocyte% 10.7 % (0-10); NRBC Flagged by Analyzer 0 % (0-5); Neutrophil # 9.67 X10^3/uL (2.7-7.7); Neutrophil % 72.6 % (47-70); Platelet Count 381 K/mm3 (150-450); RBC Distribution Width CV 18.3 % (11.6-14.6); Red Blood Count 3.47 M/mm3 (4.6-6.2); White Blood Count 13.3 K/mm3 (4.4-11.0)
[2023-02-06 09:27] LABS: ALB/GLOB Ratio 0.5 RATIO (0.9-2.4); AST(SGOT) 21 U/L (15-37); Alanine Aminotransfer ALT/SGPT 22 U/L (16-61); Albumin, Serum 2.4 g/dL (3.2-5.0); Alkaline Phosphatase 88 U/L (45-117); Anion Gap 7 (5-15); BUN 23 mg/dL (7-18); BUN/Creat Ratio 20.9 RATIO (10-20); Calcium,Total 8.8 mg/dL (8.5-10.1); Chloride 104 mmol/L (98-107); EST Glomerular Filtration Rate 67 mL/min (>60); Est Glom Filt Rate - Afr Amer 81 mL/min (>60); Estimated Creatinine Clearance 47.93 ml/min; Globulin 4.9 g/dL (2.2-4.2); Glucose 106 mg/dL (74-106); Potassium 3.9 mmol/L (3.5-5.1); Protein, Total 7.3 g/dL (6.4-8.2); Sodium Level 138 mmol/L (136-145); Thyroid Stim Hormone (TSH) 1.96 uIU/mL (0.358-3.74)
[2023-02-06] MEDS: APIXABAN 2.5 MG TABLET (WCH) PO ×2 (10:16→22:02)
[2023-02-06] MEDS: Furosemide 40 MG/4 ML Vial IV ×2 (10:16→18:32)
[2023-02-06] MEDS: Amiodarone 200 MG Tablet PO (10:16)
--- NOTE | 2023-02-06 10:45 | CASEMGMT ---
Addendum entered by Nithya Duran 02/06/23 12:33: Pt reports he would like the same HH agency as in the past. ADOLPH WEI to check on Wednesday to confirm if this agency provides SN or not. Original Note: ADOLPH WEI Assessment: Face to Face with pt for initial transition planning/care coordination assessment. ADOLPH WEI introduced self and role at [facility], pt voices understanding and consents to assessment. Pt is A/O x4 and answers all questions appropriately at this time. Pt sitting up in bed with son Chalo and dtr in law at bedside. Pt agreeable to assessment with visitors present. Care providers, pharmacy, and demographics verified/updated. Admitting Dx: AECHF PCP:Adrianne Specialists:James cardio Kirsty Pharmacy: [facility] Insurance: Medicare A Prescription Benefit: no LNOK: Delmy Escalera, dtr; Chalo Escalera, son Living Arrangements: Pt two dtrs live close with just a sidewalk in between. Pt lives alone in a two story home, he uses only the main level with 2 steps to enter. Pt reports he is I in ADL's. Dtr provide meals. Pt denies concerns at home. Transportation: Pt hires drivers for transportation or sister transports him to medical appts. DME/HHC/SNF: Pt has a cane that he uses, also has a walker, shower seat and transport w/c available. Pt has had HHC in the past through [facility] and has been to [facility]. Pt states no concerns with going home at time of dc. Pt is interested in HHC at home again, discussed SN for the CHF and possibly therapy pending evals. Pt reports he does have electricity at home should he need to be dc'd on oxygen. Pt states no further concerns/needs. CM to follow. Advised pt to ask CM if any further question/concerns/needs arise, voices understanding. Pt Goal: Home with HHC Plan: Home with HHC, follow therapy, oxgyen.
[2023-02-06] MEDS: MELATONIN 10 MG TABLET PO (22:02)
[2023-02-06] MEDS: Pravastatin 20 MG Tablet PO (22:02)
[2023-02-07 03:00] VITALS: BP 123/71; PULSE 74; RESP 18; TEMP 36.4; O2SAT 94
[2023-02-07] MEDS: Ampicillin/Sulbactam 3 GM in 0.9% Normal Saline (100mL MB+) 100 ML IV ×3 (05:01→16:32)
[2023-02-07 06:00] VITALS: BMI 27.4
[2023-02-07 06:30] LABS: Absolute Lymphocyte Count 1.33 X10^3/uL (0.83-4.51); Absolute Neutrophil Count 9.2 X10^3/uL (2.0-7.7); Basophil# 0.11 X10^3/uL; Basophil% 0.9 % (0-1); Eosinophil# 0.89 X10^3/uL; Eosinophils% 6.9 % (0-5); Hematocrit 34.5 % (40-54); Hemoglobin 11.3 g/dL (13.0-16.5); Lymphocyte # 1.33 X10^3/ul (0.83-4.51); Lymphocyte % 10.4 % (19-41); Mean Corp Hgb Conc 32.8 g/dL (32-36); Mean Corpuscular Hgb 31.9 pg (27.0-32.0); Mean Corpuscular Volume 97.5 fL (80-94); Mean Platelet Vol. 8.8 fl (6.2-12.0); Monocyte# 1.29 X10^3/uL; NRBC Flagged by Analyzer 0 % (0-5); Neutrophil # 9.16 X10^3/uL (2.7-7.7); Neutrophil % 71.3 % (47-70); POSITIVE MORPHOLOGY YES; Platelet Count 386 K/mm3 (150-450); RBC Distribution Width CV 18.2 % (11.6-14.6); RBC Distribution Width SD 65.4 fl (35.1-43.9); Red Blood Count 3.54 M/mm3 (4.6-6.2); White Blood Count 12.9 K/mm3 (4.4-11.0)
[2023-02-07 06:36] LABS: Differential Indicated SCAN CRITERIA MET
[2023-02-07 07:06] LABS: Anisocytosis 1+; Differential Comment SCANNED
[2023-02-07 07:14] LABS: Anion Gap 6 (5-15); BUN 29 mg/dL (7-18); BUN/Creat Ratio 22.8 RATIO (10-20); Calcium,Total 8.9 mg/dL (8.5-10.1); Chloride 104 mmol/L (98-107); Creatinine, Serum 1.27 mg/dL (0.70-1.30); EST Glomerular Filtration Rate 57 mL/min (>60); Est Glom Filt Rate - Afr Amer 69 mL/min (>60); Estimated Creatinine Clearance 41.51 ml/min; Glucose 114 mg/dL (74-106); Potassium 4.1 mmol/L (3.5-5.1); Sodium Level 139 mmol/L (136-145)
[2023-02-07 07:27] VITALS: PULSE 81; RESP 16; O2SAT 93
[2023-02-07] MEDS: Ipratropium/Albuterol Sulfate 3 ML AMPUL.NEB INHALATION (07:27)
[2023-02-07] MEDS: APIXABAN 2.5 MG TABLET (WCH) PO ×2 (08:03→20:03)
[2023-02-07] MEDS: Amiodarone 200 MG Tablet PO (08:03)
[2023-02-07] MEDS: Furosemide 40 MG/4 ML Vial IV ×2 (08:04→16:32)
[2023-02-07] MEDS: 0.9% Saline Lock 10 ML Syringe IV (08:04)
[2023-02-07 08:10] VITALS: BP 118/61; PULSE 108; RESP 16; TEMP 36.3; O2SAT 93
--- NOTE | 2023-02-07 09:49 | PCM.PN.HOSP ---
Subjective Subjective Doing well, breathing little bit better and his redness in his right lower extremity is improving Objective Data Objective Data Vital Signs: Vital Signs Temp Pulse Resp BP Pulse Ox O2 Del Method O2 Flow Rate 97.3 F L 108 H 16 118/61 93 Nasal Cannula 2 02/07/23 08:10 02/07/23 08:10 02/07/23 08:10 02/07/23 08:10 02/07/23 08:10 02/07/23 08:10 02/07/23 08:10 Oxygen Flow Rate (L/min) 2 Oxygen Delivery Method Nasal Cannula Weight: 191 lb 2.252 oz Body Mass Index (BMI) 27.4 Intake & Output: Intake and Output for Last 24 Hours 02/06/23 02/07/23 02/08/23 03:59 03:59 03:59 Intake Total 376.00 / 376.00 549.5 / 549.5 112 / 112 Output Total 850 / 850 1350 / 1350 200 / 200 Balance -474.00 / -474.00 -800.5 / -800.5 -88 / -88 Lab / Micro Data 02/07/23 06:04 02/07/23 06:04 Labs: Laboratory Results - last 24 hr 02/07/23 06:04: WBC 12.9 H, RBC 3.54 L, Hgb 11.3 L, Hct 34.5 L, MCV 97.5 H, MCH 31.9, MCHC 32.8, RDW Std Deviation 65.4 H, RDW Coeff of Marlon 18.2 H, Plt Count 386, MPV 8.8, Immature Gran % (Auto) 0.500, Neut % (Auto) 71.3 H, Lymph % (Auto) 10.4 L, [place] % (Auto) 10.0, Eos % (Auto) 6.9 H, Baso % (Auto) 0.9, Absolute Neuts (auto) 9.2 H, Absolute Lymphs (auto) 1.33, Nucleated RBC % 0, Differential Comment SCANNED, Anisocytosis 1+, Sodium 139, Potassium 4.1, Chloride 104, Carbon Dioxide 29.0, Anion Gap 6, BUN 29 H, Creatinine 1.27, Estim Creat Clear Calc 41.51, Est GFR (MDRD) Af Amer 69, Est GFR (MDRD) Non-Af 57 L, BUN/Creatinine Ratio 22.8 H, Glucose 114 H, Calcium 8.9 Physical Exam Narrative General: Alert, Oriented x3, Cooperative, No apparent distress HEENT: Atraumatic, PERRLA, EOMI, Normocephalic Oral: Moist Mucosa Neck: Supple, No JVD Lungs: Diminished, Normal air movement, No rhonchi, No wheeze, rales Cardiovascular: Regular rate, Regular Rhythm, Normal S1, Normal S2, No murmurs Abdomen: Soft, Non Tender, Non-Distended, No Hepato-splenomegaly Extremities: No edema, Capillary Refill Less than 3 Seconds Skin: Slight redness in his right lower extremity?improving Musculoskeletal: No Tenderness to Palpation of Joints or Extremities Neurological: Cranial nerves II-XII grossly intact, Motor Exam 5/5 strength throughout, Sensory exam intact to light touch and pain Psych/Mental Status: Normal Affect, Appropriate Assessment & Plan Assessment/Plan (1) Acute heart failure with reduced ejection fraction and diastolic dysfunction: (2) Cellulitis of right lower limb: (3) HTN (hypertension): PLAN: Plan 1. Hypoxia secondary to acute on chronic diastolic CHF/HTN/HLD/A-fib -BNP 772, chest x-ray appears congested and patient has crackles -Daily weights, I's and O's -Had echocardiogram less than 2 months ago with EF borderline at 45% and stage III diastolic dysfunction noted -IV Lasix with a fluid restriction ?Continue with amiodarone and his pravastatin ? Continue with Eliquis 2. Right lower extremity cellulitis -Has been treated for this twice without complete resolution and it will improve but not completely resolved, no longer on antibiotics and does have exam consistent with right lower extremity cellulitis -We will start Unasyn -Chronically elevated white blood cell count, continue to monitor 3. CKD unclear subtype -Has had widely variable creatinines and creatinine clearances previously, presently creatinine is lowest it has been in her system, continue to monitor 4. Reported history of asthma -Uses albuterol at home -Reportedly was wheezing in the ED and this and respiratory status improved with nebs even before Lasix the Lasix still necessary -Continue with as needed nebulizer, may need PFTs on outpatient basis DVT: Eliquis Charges/Coding Visit Charges Inpatient E&M: 74705 Subs Hosp L2
[2023-02-07 11:18] VITALS: BP 107/63; PULSE 65; RESP 14; TEMP 36; O2SAT 96
[2023-02-07 20:00] VITALS: BP 99/59; PULSE 72; RESP 16; TEMP 36.3; O2SAT 96
[2023-02-07] MEDS: MELATONIN 10 MG TABLET PO (20:02)
[2023-02-07] MEDS: Pravastatin 20 MG Tablet PO (20:03)
[2023-02-08] VITALS (11 sets, daily range): BP systolic 108–143; BP diastolic 58–78; PULSE 66–105; RESP 16–26; TEMP 36.2–36.8; O2SAT 82–97; BMI 26.6
[2023-02-08] MEDS: Ampicillin/Sulbactam 3 GM in 0.9% Normal Saline (100mL MB+) 100 ML IV ×3 (00:07→11:31)
[2023-02-08 06:47] LABS: Absolute Lymphocyte Count 1.35 X10^3/uL (0.83-4.51); Absolute Neutrophil Count 7.6 X10^3/uL (2.0-7.7); Basophil# 0.12 X10^3/uL; Eosinophil# 1.34 X10^3/uL; Eosinophils% 11.5 % (0-5); Hematocrit 34.4 % (40-54); Hemoglobin 11.2 g/dL (13.0-16.5); Lymphocyte # 1.35 X10^3/ul (0.83-4.51); Lymphocyte % 11.6 % (19-41); Mean Corp Hgb Conc 32.6 g/dL (32-36); Mean Corpuscular Hgb 31.9 pg (27.0-32.0); Monocyte# 1.16 X10^3/uL; NRBC Flagged by Analyzer 0 % (0-5); Neutrophil # 7.58 X10^3/uL (2.7-7.7); Neutrophil % 65.4 % (47-70); Platelet Count 411 K/mm3 (150-450); RBC Distribution Width SD 64.7 fl (35.1-43.9); Red Blood Count 3.51 M/mm3 (4.6-6.2); White Blood Count 11.6 K/mm3 (4.4-11.0)
[2023-02-08 07:31] LABS: Anion Gap 6 (5-15); BUN 30 mg/dL (7-18); BUN/Creat Ratio 24.2 RATIO (10-20); Calcium,Total 8.9 mg/dL (8.5-10.1); Chloride 107 mmol/L (98-107); Creatinine, Serum 1.24 mg/dL (0.70-1.30); EST Glomerular Filtration Rate 58 mL/min (>60); Est Glom Filt Rate - Afr Amer 71 mL/min (>60); Estimated Creatinine Clearance 42.52 ml/min; Glucose 108 mg/dL (74-106); Potassium 3.6 mmol/L (3.5-5.1); Sodium Level 142 mmol/L (136-145)
[2023-02-08] MEDS: APIXABAN 2.5 MG TABLET (WCH) PO ×2 (08:32→21:18)
[2023-02-08] MEDS: Furosemide 40 MG/4 ML Vial IV ×2 (08:32→17:46)
[2023-02-08] MEDS: Amiodarone 200 MG Tablet PO (08:32)
[2023-02-08] MEDS: 0.9% Saline Lock 10 ML Syringe IV ×3 (08:32→17:46)
--- NOTE | 2023-02-08 11:51 | CASEMGMT ---
Social Work POA for healthcare w/LW provision initialed is scanned into the echart. Delmy Escalera is list as healthcare POA. JC Richey
[2023-02-08 13:36] LABS: Pathologist Review Reviewed
[2023-02-08] MEDS: Ipratropium/Albuterol Sulfate 3 ML AMPUL.NEB INHALATION (18:36)
[2023-02-08] MEDS: Budesonide Respules 0.5 MG/2 ML AMPUL.NEB. INHALATION (18:36)
--- NOTE | 2023-02-08 19:49 | PCM.PN.HOSP ---
Reason for Visit Reason for Visit: Diagnoses Essential (primary) hypertension (02/05/23) Acute combined systolic (congestive) and diastolic (congestive) heart failure (02/05/23) Cellulitis of right lower limb (02/05/23) Subjective Subjective Patient was seen and examined today, he still requiring 2 L of oxygen at rest to maintain his pulse ox at 90%. On examination today, patient still has expiratory wheezing. Objective Data Objective Data Vital Signs: Vital Signs Temp Pulse Resp BP Pulse Ox O2 Del Method O2 Flow Rate 98.2 F 72 18 123/58 H 97 Nasal Cannula 2 02/08/23 16:00 02/08/23 16:00 02/08/23 16:00 02/08/23 16:00 02/08/23 16:00 02/08/23 16:00 02/08/23 16:00 Oxygen Flow Rate (L/min) [ 2 AMBULATING with Oxygen #1] Oxygen Flow Rate (L/min) 2 Oxygen Delivery Method Nasal Cannula Weight: 84.3 kg Body Mass Index (BMI) 26.6 Intake & Output: Intake and Output for Last 24 Hours 02/06/23 02/07/23 02/08/23 23:59 23:59 23:59 Intake Total 677.5 / 677.5 648 / 648 756 / 756 Output Total 1900 / 2200 2200 / 2200 1050 / 1050 Balance -1222.5 / -1522.5 -1552 / -1552 -294 / -294 Lab / Micro Data 02/08/23 05:57 02/08/23 05:57 Labs: Laboratory Results - last 24 hr 02/05/23 15:55: Diff Path Review Reviewed 02/08/23 05:57: WBC 11.6 H, RBC 3.51 L, Hgb 11.2 L, Hct 34.4 L, MCV 98.0 H, MCH 31.9, MCHC 32.6, RDW Std Deviation 64.7 H, RDW Coeff of Marlon 18.0 H, Plt Count 411, MPV 9.0, Immature Gran % (Auto) 0.500, Neut % (Auto) 65.4, Lymph % (Auto) 11.6 L, [place] % (Auto) 10.0, Eos % (Auto) 11.5 H, Baso % (Auto) 1.0, Absolute Neuts (auto) 7.6, Absolute Lymphs (auto) 1.35, Nucleated RBC % 0, Sodium 142, Potassium 3.6, Chloride 107, Carbon Dioxide 29.0, Anion Gap 6, BUN 30 H, Creatinine 1.24, Estim Creat Clear Calc 42.52, Est GFR (MDRD) Af Amer 71, Est GFR (MDRD) Non-Af 58 L, BUN/Creatinine Ratio 24.2 H, Glucose 108 H, Calcium 8.9 Micro: Microbiology 02/08/23 12:55 Mucosa - Nasopharyngeal Respiratory Panel (PCR) - Final Physical Exam Const alert, oriented x3, no apparent distress, average body habitus and healthy appearing General Appearance: cooperative, well kempt and well developed Orientation / Consciousness: awake, oriented to person, oriented to place and oriented to time HEENT normocephalic, head/scalp atraumatic and moist oral mucous membranes Eyes PERRL, EOMs intact bilaterally and conjunctivae normal Neck supple, no JVD, thyroid normal and no carotid bruits General: trachea midline Resp normal respiratory effort, no retractions and no use of accessory muscles Resp Narrative: Expiratory wheezing is noted bilaterally Auscultation: wheezes expiratory wheezes and throughout; Negative for rales or rhonchi Cardio S1 normal heart sound, S2 normal heart sound, no murmurs, no rub and no gallops Cardio Narrative: Heart rate and rhythm is irregular GI normal to inspection, nondistended, normoactive bowel sounds, soft to palpation, non-tender and non-distended Extremity normal to inspection Extremity Narrative: Chronic stasis changes are noted over the skin of his lower legs bilaterally Skin Skin Narrative: Chronic stasis changes are noted over the skin of his lower legs Neuro oriented x3, CN's II-XII intact bilaterally, moves all extremities, no focal motor deficits and no sensory deficits noted Sensorium / Orientation: awake and alert Speech: speech normal Psych affect normal Assessment & Plan Assessment/Plan (1) CHF (congestive heart failure): QUALIFIERS: Heart failure type: systolic Heart failure chronicity: acute on chronic Qualified Code(s): I50.23 - Acute on chronic systolic (congestive) heart failure PLAN: Plan 1. Acute on chronic congestive heart failure with preserved ejection fraction-patient will continue on IV Lasix, I have decided to have the patient undergo CT scan of the chest tomorrow morning without contrast to better delineate any pulmonary problems #2 hypoxia secondary to #1-pulse ox will be monitored, oxygen will be weaned if possible #3 diffuse wheezing-etiology unclear, possibly secondary to congestive heart failure, I have elected to place the patient on aerosol treatments and reevaluate the patient tomorrow. I performed a respiratory panel on the patient which was negative. #4 essential hypertension-patient will remain on his present medications #5 chronic atrial fibrillation-patient is on apixaban and amiodarone #6 hyperlipidemia-patient is on a statin Total clinical time spent by myself addressing the patient's medical issues, reviewing his data, and collaborating with patient's care team: 25 minutes Charges/Coding Visit Charges Inpatient E&M: 44104 Subs Hosp L1
[2023-02-08] MEDS: MELATONIN 10 MG TABLET PO (21:18)
[2023-02-08] MEDS: Pravastatin 20 MG Tablet PO (21:18)
[2023-02-09] VITALS (7 sets, daily range): BP systolic 100–123; BP diastolic 66–79; PULSE 73–88; RESP 16–24; TEMP 36.3–38.8; O2SAT 88–96; BMI 26.9
--- NOTE | 2023-02-09 05:55 | CT_ITS ---
INDICATION: hypoxia EXAMINATION: CT Chest W/O Contrast Injection TECHNIQUE: Helically acquired images were obtained of the chest with sagittal and coronal reconstructed images. Three-D reconstructed images were reviewed. Individualized dose optimization techniques were used for this CT. COMPARISON: 02/05/2023 chest x-ray. No prior CT for comparison. FINDINGS: LUNGS, PLEURA AND LARGE AIRWAYS: Scattered bilateral groundglass opacities. No honeycombing or significant septal thickening. No pleural effusion or pneumothorax. Calcified left lower lobe granulomas. THYROID: Unremarkable. HEART AND PERICARDIUM: Coronary artery calcifications are present. Cardiomegaly. No pericardial effusion. MEDIASTINUM AND MATHEUS: Mediastinal lymph nodes with the largest measuring 1.0 cm in short axis diameter in the pretracheal region. Calcified subcarinal and left hilar lymph nodes. Esophagus is unremarkable. No hiatal hernia. VESSELS: No thoracic aortic aneurysm. UPPER ABDOMEN: Left lobe hepatic cyst. Multiple gallstones with no evidence of cholecystitis. BONES: No acute abnormality. CT/Chest without Contrast IMPRESSION: Scattered bilateral groundglass pulmonary opacities which may represent pneumonia versus chronic interstitial lung disease such as developing pulmonary fibrosis. Electronically Signed: Rufino Olsen DO at 1:40 EDT ,
[2023-02-09] MEDS: Budesonide Respules 0.5 MG/2 ML AMPUL.NEB. INHALATION ×2 (07:21→19:23)
[2023-02-09] MEDS: Ipratropium/Albuterol Sulfate 3 ML AMPUL.NEB INHALATION ×2 (07:21→19:23)
[2023-02-09 09:32] LABS: Absolute Lymphocyte Count 1.34 X10^3/uL (0.83-4.51); Absolute Neutrophil Count 8.8 X10^3/uL (2.0-7.7); Basophil# 0.11 X10^3/uL; Basophil% 0.9 % (0-1); Eosinophil# 0.84 X10^3/uL; Eosinophils% 6.9 % (0-5); Hemoglobin 11.2 g/dL (13.0-16.5); Lymphocyte # 1.34 X10^3/ul (0.83-4.51); Lymphocyte % 11.1 % (19-41); Mean Corpuscular Hgb 31.7 pg (27.0-32.0); Mean Corpuscular Volume 99.2 fL (80-94); Mean Platelet Vol. 8.8 fl (6.2-12.0); Monocyte# 0.91 X10^3/uL; Monocyte% 7.5 % (0-10); NRBC Flagged by Analyzer 0 % (0-5); Neutrophil # 8.84 X10^3/uL (2.7-7.7); Platelet Count 421 K/mm3 (150-450); RBC Distribution Width CV 17.8 % (11.6-14.6); Red Blood Count 3.53 M/mm3 (4.6-6.2); White Blood Count 12.1 K/mm3 (4.4-11.0)
[2023-02-09] MEDS: 0.9% Saline Lock 10 ML Syringe IV ×2 (09:44→18:07)
[2023-02-09] MEDS: Piperacil/Tazobactam 3.375 GM in 0.9% Normal Saline (50mL MB+) 50 ML IV (09:44)
[2023-02-09] MEDS: Amiodarone 200 MG Tablet PO (09:48)
[2023-02-09] MEDS: Furosemide 40 MG/4 ML Vial IV ×2 (09:49→18:07)
[2023-02-09] MEDS: APIXABAN 2.5 MG TABLET (WCH) PO ×2 (09:49→22:19)
--- NOTE | 2023-02-09 10:12 | CON.PCM.CC_ITS ---
Assessment & Plan Assessment/Plan (1) Hypoxia: PLAN: Plan RECOMMENDATIONS: 1. Wean supplemental oxygen to maintain saturations at or above 90%. 2. Continue attempts at diuresis as tolerated by hemodynamics and renal function. 3. Continue Eliquis per home regimen. 4. Continue bronchodilators as needed. 5. Check COVID PCR and procalcitonin. 6. Encourage incentive spirometer use and mobilize patient as tolerated. IMPRESSIONS: 1. Shortness of breath and hypoxemia Most likely secondary to decompensated heart failure. I do believe that the vital signs documented early this morning may have been an error. At this time, I recommend that we check a COVID PCR and procalcitonin. When I examined the patient this morning, he was maintaining appropriate oxygen saturations on 2 L/min, but did have his nasal cannula placed on his cheek. He has a questionable history of asthma, but does not regularly utilize inhalers, nor has he ever been evaluated by a molasses coloring operator. I think it is more prudent to continue attempts at diuresis. I would consider cardiology involvement, as it appears that his primary issue is cardiac in nature. 2. Atrial fibrillation/hypertension/hyperlipidemia/advanced age Complicates care, management, recovery and prognosis. Continue home medications as indicated. This note was generated with [employer] dictation software. It may contain incorrect words, spelling, and punctuation that were not noted in checking the note before signing. HPI Consult Data Date of Consult: 02/09/23 HPI Narrative Reason for Consultation: Hypoxemia HPI Narrative: The patient is an 87-year-old male, with a history as outlined below, who presented to the emergency department on February 05 with shortness of breath. The patient was last admitted to the hospital in November 2022 with acute decompensated heart failure and new onset atrial fibrillation with RVR. His ejection fraction was noted to be 45%. The patient is maintained on amiodarone, Eliquis and Lasix as an outpatient. He does report a questionable history of asthma but does not regularly utilize any bronchodilators. He has never been formally evaluated by a molasses coloring operator. The patient currently denies any resting shortness of breath or cough. On presentation to the emergency department, the patient was noted to be afebrile hemodynamically stable. Initial laboratory evaluation revealed a white blood cell count of 16,000. Chemistry profile was unremarkable. BNP was elevated at 772. Troponin was negative. Chest imaging demonstrated bilateral airspace disease. A follow-up chest CT was then completed on February 09 which demonstrated bilateral groundglass changes. The patient has been admitted to the hospital, where he has been maintained on Lasix twice daily. The patient was also recently initiated on bronchodilator therapy and antibiotics. PENDING SALE TO [facility] Medical History HTN (hypertension) Hypercholesteremia Home Medications pravastatin 20 mg tablet 20 mg PO QHS CHOLESTEROL 12/14/22 [History Last Taken 12/18/22] melatonin 10 mg sublingual tablet 10 mg PO QHS SLEEP #0 tabs 12/18/22 [Rx Last Taken 12/18/22] amiodarone 200 mg tablet 200 mg PO DAILY IRREGULAR HEARTBEAT 30 days #30 tabs 12/23/22 [Rx Last Taken Unknown] apixaban 5 mg tablet (Eliquis) 2.5 mg (1/2 x 5 mg) PO BID BLOOD THINNER 30 days #30 tabs 12/23/22 [Rx Last Taken Unknown] furosemide 20 mg tablet 20 mg PO BIDLX EDEMA 30 days #60 tabs 12/23/22 [Rx Last Taken Unknown] acetaminophen 500 mg capsule 1,000 mg PO Q6H PRN pain 02/06/23 [History Last Taken Unknown] Allergy/AdvReac Type Severity Reaction Status Date / Time No Known Drug Allergies Allergy Mild none Verified 02/05/23 15:46 Surgical History History of appendectomy Social History household members: none Smoking Status: Never smoker alcohol intake: never substance use type: does not use ROS ROS Narrative 10 systems were reviewed with pertinent positives as noted in the HPI above. Physical Exam Const alert and no apparent distress General Appearance: cooperative HEENT normocephalic and head/scalp atraumatic General Ear: hearing grossly impaired Eyes PERRL, EOMs intact bilaterally and conjunctivae normal Neck supple General: trachea midline Chest inspection of chest normal Resp normal respiratory effort Auscultation: rales and wheezes Cardio regular rate and regular rhythm GI normal to inspection, nondistended, normoactive bowel sounds Extremity no clubbing, cyanosis or edema Skin no rashes or lesions noted Neuro CN's II-XII intact bilaterally, moves all extremities and no focal motor defici ts Psych cooperative and affect normal Lab / Micro Data 02/09/23 09:10 02/08/23 05:57 Labs: Laboratory Results - last 24 hr 02/05/23 15:55: Diff Path Review Reviewed 02/09/23 09:10: WBC 12.1 H, RBC 3.53 L, Hgb 11.2 L, Hct 35.0 L, MCV 99.2 H, MCH 31.7, MCHC 32.0, RDW Std Deviation 64.0 H, RDW Coeff of Marlon 17.8 H, Plt Count 421, MPV 8.8, Immature Gran % (Auto) 0.600, Neut % (Auto) 73.0 H, Lymph % (Auto) 11.1 L, [place] % (Auto) 7.5, Eos % (Auto) 6.9 H, Baso % (Auto) 0.9, Absolute Neuts (auto) 8.8 H, Absolute Lymphs (auto) 1.34, Nucleated RBC % 0 Micro: Microbiology 02/08/23 12:55 Mucosa - Nasopharyngeal Respiratory Panel (PCR) - Final Radiology Impression Chest CT 02/09/23 05:55 IMPRESSION: Scattered bilateral groundglass pulmonary opacities which may represent pneumonia versus chronic interstitial lung disease such as developing pulmonary fibrosis. Electronically Signed: Rufino Olsen DO at 1:40 EDT Reading Location ID and State: [facility] / [place] Tel , Service support , Charges/Coding Visit Charges Inpatient E&M: 31017 Init Hosp L3
[2023-02-09 10:31] LABS: BNP,B-Type NATRIURETIC PEPTIDE 337.7 pg/mL (0-100)
[2023-02-09 10:40] LABS: Procalcitonin 0.13 ng/mL (0.00-0.09)
--- NOTE | 2023-02-09 19:11 | PN.HOSP_ITS ---
Reason for Visit Reason for Visit: Diagnoses Essential (primary) hypertension (02/05/23) Acute on chronic systolic (congestive) heart failure (02/05/23) Acute combined systolic (congestive) and diastolic (congestive) heart failure (02/05/23) Cellulitis of right lower limb (02/05/23) Hypoxemia (02/05/23) Subjective Subjective Patient was seen and examined today, I discussed his care with his who was in the room at the time my examination. Patient is currently on 2 L of nasal cannula O2, he does not complain of any fevers or chills. It was charted this morning that the patient was on CPAP, nursing cannot verify this however, it was also charted that the patient had a 101.9 temperature, this could not be verified and so initially I had pulmonary medicine see the patient, they recommended continuing present treatment, I also briefly placed the patient on antibiotics today but he had no temperature elevations throughout the day and I decided to discontinue his antibiotics. Objective Data Objective Data Vital Signs: Vital Signs Temp Pulse Resp BP Pulse Ox O2 Del Method O2 Flow Rate 97.3 F L 88 18 100/68 91 Nasal Cannula 2 02/09/23 08:00 02/09/23 08:00 02/09/23 08:00 02/09/23 08:00 02/09/23 17:23 02/09/23 10:00 02/09/23 17:23 Oxygen Flow Rate (L/min) [ 2 AMBULATING with Oxygen #1] Oxygen Flow Rate (L/min) 2 Oxygen Delivery Method Nasal Cannula Weight: 85.1 kg Body Mass Index (BMI) 26.9 Intake & Output: Intake and Output for Last 24 Hours 02/07/23 02/08/23 02/09/23 23:59 23:59 23:59 Intake Total 648 / 648 756 / 756 50 / 50 Output Total 2200 / 2200 1050 / 1250 600 / 600 Balance -1552 / -1552 -294 / -494 -550 / -550 Lab / Micro Data 02/09/23 09:10 02/08/23 05:57 Labs: Laboratory Results - last 24 hr 02/09/23 09:10: WBC 12.1 H, RBC 3.53 L, Hgb 11.2 L, Hct 35.0 L, MCV 99.2 H, MCH 31.7, MCHC 32.0, RDW Std Deviation 64.0 H, RDW Coeff of Marlon 17.8 H, Plt Count 421, MPV 8.8, Immature Gran % (Auto) 0.600, Neut % (Auto) 73.0 H, Lymph % (Auto) 11.1 L, [place] % (Auto) 7.5, Eos % (Auto) 6.9 H, Baso % (Auto) 0.9, Absolute Neuts (auto) 8.8 H, Absolute Lymphs (auto) 1.34, Nucleated RBC % 0, B-Natriuretic Peptide 337.7 H, Procalcitonin 0.13 H Micro: Microbiology 02/09/23 08:37 Mucosa - Nasopharyngeal Coronavirus COVID-19 PCR - Final 02/08/23 12:55 Mucosa - Nasopharyngeal Respiratory Panel (PCR) - Final Radiography Diagnostic Testing: Radiology Impression Chest CT 02/09/23 05:55 IMPRESSION: Scattered bilateral groundglass pulmonary opacities which may represent pneumonia versus chronic interstitial lung disease such as developing pulmonary fibrosis. Electronically Signed: Rufino Olsen DO at 1:40 EDT , Physical Exam Narrative alert, oriented x3, no apparent distress, average body habitus and healthy appearing General Appearance: cooperative, well kempt and well developed Orientation / Consciousness: awake, oriented to person, oriented to place and oriented to time HEENT normocephalic, head/scalp atraumatic and moist oral mucous membranes Eyes PERRL, EOMs intact bilaterally and conjunctivae normal Neck supple, no JVD, thyroid normal and no carotid bruits General: trachea midline Resp normal respiratory effort, no retractions and no use of accessory muscles Resp Narrative: Expiratory wheezing is noted bilaterally Auscultation: wheezes expiratory wheezes and throughout; Negative for rales or rhonchi Cardio S1 normal heart sound, S2 normal heart sound, no murmurs, no rub and no gallops Cardio Narrative: Heart rate and rhythm is irregular GI normal to inspection, nondistended, normoactive bowel sounds, soft to palpation, non-tender and non-distended Extremity normal to inspection Extremity Narrative: Chronic stasis changes are noted over the skin of his lower legs bilaterally Skin Skin Narrative: Chronic stasis changes are noted over the skin of his lower legs Neuro oriented x3, CN's II-XII intact bilaterally, moves all extremities, no focal motor deficits and no sensory deficits noted Sensorium / Orientation: awake and alert Speech: speech normal Psych affect normal Assessment & Plan Assessment/Plan (1) Hypoxia: (2) CHF (congestive heart failure): QUALIFIERS: Heart failure type: systolic Heart failure chronic ity: acute on chronic Qualified Code(s): I50.23 - Acute on chronic systolic (congestive) heart failure PLAN: Plan Recommend1. Acute on chronic congestive heart failure with preserved ejection fraction-patient will continue on IV Lasix, patient's CT today showed bilateral infiltrates, I discussed this with pulmonary medicine and they continuing IV Lasix at this time. #2 hypoxia secondary to #1-pulse ox will be monitored, oxygen will be weaned if possible, patient will most likely need oxygen at home, I discussed this with his and she was in favor of the patient having oxygen at home. #3 essential hypertension-patient will remain on his present medications #4 chronic atrial fibrillation-patient is on apixaban and amiodarone #5 hyperlipidemia-patient is on a statin Total clinical time spent by myself addressing the patient's medical issues, reviewing his data, and collaborating with patient's care team: 25 minutes Charges/Coding Visit Charges Inpatient E&M: 02347 Subs Hosp L1
[2023-02-09] MEDS: Pravastatin 20 MG Tablet PO (22:19)
[2023-02-09] MEDS: MELATONIN 10 MG TABLET PO (22:19)
[2023-02-10] VITALS (9 sets, daily range): BP systolic 107–116; BP diastolic 61–69; PULSE 67–100; RESP 14–22; TEMP 36.4–36.9; O2SAT 86–97; BMI 27.3
[2023-02-10] MEDS: Ipratropium/Albuterol Sulfate 3 ML AMPUL.NEB INHALATION ×3 (01:33→12:56)
[2023-02-10 06:53] LABS: Absolute Lymphocyte Count 1.39 X10^3/uL (0.83-4.51); Absolute Neutrophil Count 7.2 X10^3/uL (2.0-7.7); Basophil# 0.11 X10^3/uL; Eosinophils% 8.5 % (0-5); Hematocrit 32.8 % (40-54); Hemoglobin 10.6 g/dL (13.0-16.5); Lymphocyte # 1.39 X10^3/ul (0.83-4.51); Lymphocyte % 13.1 % (19-41); Mean Corp Hgb Conc 32.3 g/dL (32-36); Mean Corpuscular Hgb 31.5 pg (27.0-32.0); Mean Corpuscular Volume 97.6 fL (80-94); Mean Platelet Vol. 8.9 fl (6.2-12.0); Monocyte# 1.03 X10^3/uL; Monocyte% 9.7 % (0-10); NRBC Flagged by Analyzer 0 % (0-5); Neutrophil # 7.16 X10^3/uL (2.7-7.7); Neutrophil % 67.2 % (47-70); Platelet Count 386 K/mm3 (150-450); RBC Distribution Width CV 17.4 % (11.6-14.6); Red Blood Count 3.36 M/mm3 (4.6-6.2); White Blood Count 10.6 K/mm3 (4.4-11.0)
[2023-02-10] MEDS: Budesonide Respules 0.5 MG/2 ML AMPUL.NEB. INHALATION (06:56)
[2023-02-10 07:40] LABS: Anion Gap 6 (5-15); BUN 32 mg/dL (7-18); Calcium,Total 8.8 mg/dL (8.5-10.1); Chloride 106 mmol/L (98-107); Creatinine, Serum 1.28 mg/dL (0.70-1.30); EST Glomerular Filtration Rate 56 mL/min (>60); Est Glom Filt Rate - Afr Amer 68 mL/min (>60); Estimated Creatinine Clearance 41.19 ml/min; Glucose 116 mg/dL (74-106); Potassium 3.4 mmol/L (3.5-5.1); Sodium Level 140 mmol/L (136-145)
--- NOTE | 2023-02-10 10:05 | CASEMGMT ---
Discharge Planning Referral sent to [facility] via [facility]. Lorena Hess, Discharge Planning Asst.
[2023-02-10] MEDS: Amiodarone 200 MG Tablet PO (10:30)
[2023-02-10] MEDS: APIXABAN 2.5 MG TABLET (WCH) PO (10:30)
[2023-02-10] MEDS: Furosemide 40 MG/4 ML Vial IV (10:30)
[2023-02-10] MEDS: 0.9% Saline Lock 10 ML Syringe IV (10:31)
--- NOTE | 2023-02-10 14:37 | PCM.DC ---
Discharge Instructions Diet Discharge Diet: No restrictions Activity Discharge Activity: Return to Normal Activity Weight Bearing Status: Full weight bearing Follow Up Care Test Results: Test results from this visit will be discussed in further detail at your follow-up appointment, if applicable. Discharge Plan Admission Admit Date/Time: 02/05/23 19:10 Primary Reason for Your Visit: Congestive heart failure Attending Provider: Jatinder Mcwilliams Primary Care Provider: George Silver Consulting Providers: Vaishnavi Hugehs; Ricky Arriaga; Tyler Juarez; Silviano Winn; Frieda Augustin; Darwin Cannon; Scottie Arana; Denice Bailey [employer] Instructions Additional Instructions / Restrictions: Use oxygen at 2 L/min via nasal cannula at rest and during activity Increase your Eliquis to 5 mg twice a day, you will need to obtain a prescription from Dr. Silver Discharge Orders/Prescriptions Prescriptions: New furosemide [Lasix] 40 mg tablet 40 mg PO BID Qty: 60 0RF Continued pravastatin 20 mg tablet 20 mg PO QHS melatonin 10 mg Tablet, Sublingual 10 mg PO QHS Qty: 0 0RF amiodarone 200 mg Tablet 200 mg PO DAILY 30 Days Qty: 30 0RF acetaminophen 500 mg capsule 1,000 mg PO Q6H PRN (Reason: pain) Changed Eliquis 5 mg Tablet 5 mg PO BID 30 Days Qty: 30 0RF Discontinued furosemide 20 mg Tablet 20 mg PO BIDLX 30 Days Qty: 60 0RF Referrals / Follow Up: Silviano Winn DO [Med Staff - Active Staff] - See Referral Note (If you so desire, follow-up with Dr. Winn (pulmonary medicine) within a month, let them know that Dr. Winn saw Carlo in the hospital-call for an appointment) George Silver DO [Primary Care Provider] - Within 2 Weeks Disposition Disposition (needs filled in before D/C Order can be placed): Home, Self Care
--- NOTE | 2023-02-10 14:44 | CASEMGMT ---
Discharge Planning Patient has been accepted by [facility]. RN CM, patient, and family updated. Lorena Hess, Discharge Planning Asst.
--- NOTE | 2023-02-10 15:16 | DS.PCM_ITS ---
Providers Date of Admission: 02/05/23 Date of Discharge: 02/10/23 Primary Care Physician: Dr. George Silver, Consultations 02/09/23 07:37 Consult: Combination Technician / Pulmonary Medicine Routine Consulting Provider: Pulmonary Medicine homa Salas Reason for Consult: hypoxia EMERGENT Consult: No MD Notified: Yes Date Notified: 02/09/23 Time Notified: 08:02 Method of Notification: Text Reason For Visit: AECHF Diagnosis Discharge Diagnosis (1) Hypoxia: Status: Acute Code(s): R09.02 - Hypoxemia (2) CHF (congestive heart failure): Status: Acute Code(s): I50.9 - Heart failure, unspecified Qualifiers: Heart failure chronicity: acute on chronic Heart failure type: systolic Qualified Code(s): I50.23 - Acute on chronic systolic (congestive) heart failure Plan Recommend1. Acute on chronic congestive heart failure with preserved ejection fraction-patient will continue on IV Lasix, patient's CT today showed bilateral infiltrates, I discussed this with pulmonary medicine and they continuing IV Lasix at this time. #2 hypoxia secondary to #1-pulse ox will be monitored, oxygen will be weaned if possible, patient will most likely need oxygen at home, I discussed this with his and she was in favor of the patient having oxygen at home. #3 essential hypertension-patient will remain on his present medications #4 chronic atrial fibrillation-patient is on apixaban and amiodarone #5 hyperlipidemia-patient is on a statin Total clinical time spent by myself addressing the patient's medical issues, reviewing his data, and collaborating with patient's care team: 25 minutes Medications at Discharge Home Medications pravastatin 20 mg tablet 20 mg PO QHS CHOLESTEROL 12/14/22 melatonin 10 mg sublingual tablet 10 mg PO QHS SLEEP #0 tabs 12/18/22 amiodarone 200 mg tablet 200 mg PO DAILY IRREGULAR HEARTBEAT 30 days #30 tabs 12/23/22 acetaminophen 500 mg capsule 1,000 mg PO Q6H PRN pain 02/06/23 apixaban 5 mg tablet (Eliquis) 5 mg PO BID BLOOD THINNER 30 days #30 tabs 02/10/23 furosemide 40 mg tablet (Lasix) 40 mg PO BID #60 tabs 02/10/23 Hospital Course Operations None Procedures None Summary of Care Provided Minutes Spent on Discharge: 32 Hospital Course: This 87-year-old white male was seen in the emergency room at [facility] with a complaint of shortness of breath, patient has history of CHF in the past. Labs obtained in the emergency room showed the patient had an elevated white blood cell count at 16.7, patient's beta natruretic peptide was elevated at 770, chest x-ray was performed which showed increased markings at the left lung base and also the right lung base. Patient was admitted to PCU for acute exacerbation of CHF with intermediate ejection fraction, he required supplemental oxygen via nasal cannula, he was placed on IV Lasix, initially he was thought to have a right lower extremity cellulitis but this examiner did not agree with that diagnosis, patient remained on antibiotics for a few days during his hospitalization. Patient was seen in consultation by pulmonary medicine due to persistent wheezing and documentation in his chart that he was running a high temperature and was on CPAP-ultimately it was believed that there was some erroneous charting in the patient's medical record and the patient actually was not febrile and was not on CPAP. There was some question that the patient had a past history of asthma but this could not be confirmed. Patient had a recent echocardiogram performed which showed an EF of 45%-patient's echocardiogram was not repeated during this hospital stay. On 02/10/2023, patient was seen and examined:alert, oriented x3, no apparent distress, average body habitus and healthy appearing General Appearance: cooperative, well kempt and well developed Orientation / Consciousness: awake, oriented to person, oriented to place and oriented to time HEENT normocephalic, head/scalp atraumatic and moist oral mucous membranes Eyes PERRL, EOMs intact bilaterally and conjunctivae normal Neck supple, no JVD, thyroid normal and no carotid bruits General: trachea midline Resp normal respiratory effort, no retractions and no use of accessory muscles Resp Narrative: Expiratory wheezing is noted bilaterally Auscultation: wheezes expiratory wheezes and throughout; Negative for rales or rhonchi Cardio S1 normal heart sound, S2 normal heart sound, no murmurs, no rub and no gallops Cardio Narrative: Heart rate and rhythm is irregular GI normal to inspection, nondistended, normoactive bowel sounds, soft to palpation, non-tender and non-distended Extremity normal to inspection Extremity Narrative: Chronic stasis changes are noted over the skin of his lower legs bilaterally Skin Skin Narrative: Chronic stasis changes are noted over the skin of his lower legs Neuro oriented x3, CN's II-XII intact bilaterally, moves all extremities, no focal motor deficits and no sensory deficits noted Sensorium / Orientation: awake and alert Speech: speech normal Psych affect normal It was determined on 02/10/2023 that the patient required home oxygen at a flow rate of 2 L/min via nasal cannula, his flow rate on activity was also 2 L. He was set up for home O2 and was expected to use oxygen inside his home and outside his home during ADLs. Patient was discharged home on 02/10/2023 in stable condition Patient's Eliquis dose was increased to 5 mg twice daily, his physician's office was contacted and made aware of that (Dr. Silver's office-[facility]). Weight / BMI Weight Weight: 86.5 kg Body Mass Index (BMI) 27.3 ABG / Lab / Microbiology Data 02/10/23 06:25 02/10/23 06:25 Laboratory: Laboratory Results - last 24 hr 02/10/23 06:25: WBC 10.6, RBC 3.36 L, Hgb 10.6 L, Hct 32.8 L, MCV 97.6 H, MCH 3 1.5, MCHC 32.3, RDW Std Deviation 63.0 H, RDW Coeff of Marlon 17.4 H, Plt Count 386, MPV 8.9, Immature Gran % (Auto) 0.500, Neut % (Auto) 67.2, Lymph % (Auto) 13.1 L, [place] % (Auto) 9.7, Eos % (Auto) 8.5 H, Baso % (Auto) 1.0, Absolute Neuts (auto) 7.2, Absolute Lymphs (auto) 1.39, Nucleated RBC % 0, Sodium 140, Potassium 3.4 L, Chloride 106, Carbon Dioxide 28.0, Anion Gap 6, BUN 32 H, Creatinine 1.28, Estim Creat Clear Calc 41.19, Est GFR (MDRD) Af Amer 68, Est GFR (MDRD) Non-Af 56 L, BUN/Creatinine Ratio 25.0 H, Glucose 116 H, Calcium 8.8 Microbiology: Microbiology 02/09/23 08:37 Mucosa - Nasopharyngeal Coronavirus COVID-19 PCR - Final 02/08/23 12:55 Mucosa - Nasopharyngeal Respiratory Panel (PCR) - Final D/C Instructions Discharge Diet: No restrictions Weight Bearing Status: Full weight bearing Meaningful Use Info Meaningful Use Diagnoses (Choose all that apply): CHF CHF ARACELI/ARB ordered at discharge?: No Reason ARACELI/ARB not ordered?: Not indicated Documented LVEF (%): 45 Discharge Plan Admission Admit Date/Time: 02/05/23 19:10 Primary Reason for Your Visit: Congestive heart failure Attending Provider: Jatinder Mcwilliams Primary Care Provider: George Silver Consulting Providers: Vaishnavi Hughes; Ricky Arriaga; Tyler Juarez; Silviano Winn; Frieda Augustin; Darwin Cannon; Scottie Arana; Denice Bailey BI MANAGER Instructions Additional Instructions / Restrictions: Use oxygen at 2 L/min via nasal cannula at rest and during activity Increase your Eliquis to 5 mg twice a day, you will need to obtain a prescription from Dr. Silver Discharge Orders/Prescriptions Prescriptions: New furosemide [Lasix] 40 mg tablet 40 mg PO BID Qty: 60 0RF Continued pravastatin 20 mg tablet 20 mg PO QHS melatonin 10 mg Tablet, Sublingual 10 mg PO QHS Qty: 0 0RF amiodarone 200 mg Tablet 200 mg PO DAILY 30 Days Qty: 30 0RF acetaminophen 500 mg capsule 1,000 mg PO Q6H PRN (Reason: pain) Changed Eliquis 5 mg Tablet 5 mg PO BID 30 Days Qty: 30 0RF Discontinued furosemide 20 mg Tablet 20 mg PO BIDLX 30 Days Qty: 60 0RF Referrals / Follow Up: Silviano Winn DO [Med Staff - Active Staff] - See Referral Note (If you so desire, follow-up with Dr. Winn (pulmonary medicine) within a month, let them know that Dr. Winn saw Carlo in the hospital-call for an appointment) George Silver DO [Primary Care Provider] - Within 2 Weeks Disposition Disposition (needs filled in before D/C Order can be placed): Home, Self Care Charges/Coding Visit Charges Inpatient E&M: 90234 Disch Hosp >30min
--- NOTE | 2023-02-10 15:20 | CASEMGMT ---
RN ERIBERTO updated that patient will need oxygen at discharge. Patient prefers [employer]. Script received and referral sent to [facility] via [facility], portable tank arranged to be delivered to room. ADOLPH WEI in to update patient regarding home oxygen setup and HHC setup with [employer]. Patient and daughter denied further questions or concerns at this time.
--- NOTE | 2023-02-10 15:46 | PCM.HOSP.N ---
Hospitalist Note Patient requires oxygen at 2 L/min via nasal cannula at rest and during activities including ambulation, he is expected to use the oxygen as prescribed in order to perform activities of daily living in his home and outside his home. Patient understands this and is aware.
== END 2023-02-10 16:55 | disposition home or self-care (01) | DRG 291 ==
LOC: ED 18:43 → PCU 19:55
PROVIDERS: Family Medicine; Internal Medicine Critical Care Medicine; Admitting Provider Internal Medicine; Emergency Provider Emergency Medicine; PCP Family Medicine; Visit Provider Internal Medicine
DX: I13.0 Hypertensive heart and chronic kidney disease with heart failure and stage 1 through stage 4 chronic kidney disease, or unspecified chronic kidney disease (principal); I50.23 Acute on chronic systolic (congestive) heart failure; L03.115 Cellulitis of right lower limb; I48.20 Chronic atrial fibrillation, unspecified; Z79.01 Long term (current) use of anticoagulants; D64.9 Anemia, unspecified; N18.9 Chronic kidney disease, unspecified; J45.909 Unspecified asthma, uncomplicated; E78.5 Hyperlipidemia, unspecified
CPT/HCPCS: 36415; 71045; 71250; 80048; 80053; 83880; 84145; 84443; 84484; 85025; 87040; 87633; 87635; 93005; 94640; 94668; 97110; 97162; 97165; 97530; 97535; 99252; 99284; J7050; A4216; G0463; J0295; J1940